=== PATIENT | female | born 1940 | race Caucasian/White ===

== ENCOUNTER 2017-12-08 09:36 | Emergency (ER) | payer MEDICARE, SELFPAY ==
[2017-12-08 09:54] VITALS: BP 132/64; PULSE 100; RESP 20; TEMP 36.6; O2SAT 93; BMI 35.5
--- NOTE | 2017-12-08 09:54 | HMH.EDUTC ---
[facility] [place] Disposition Clinical Impression: Influenza Disposition: Home, Self-Care Condition on Discharge: Good Instructions: Influenza, Influenza (Alternative Therapy) Additional Instructions: ? Start Tamiflu today if you are going to take it. Discussed risk and possible benefits. ? ? Lots of rest ? Increase Fluids water, Gatorade, powerade, pedialyte,if infant/toddler/child ? Alternate Tylenol and / or ibuprofen as discussed for fever, aches, chills x 24 hours without medication for symptoms ? Follow up IMMEDIATELY for new or worsening Symptoms OR no noticeable improvement over the next 48-72 hours, 911 for difficulty or breathing ? You or your child area contagious until no fever, aches, chills for 24 hours with medication for symptoms Prescriptions: Dextromethorphan Polistirex [Delsym] 10 ml PO Q12H PRN #200 frankie.er.12h PRN Reason: Cough Fluticasone Propionate [Flonase 50mcg nasal spray 16gm] 2 spr NS DAILY #1 bottle Oseltamivir Phosphate [Tamiflu 75mg Capsule] 75 mg PO BID #10 capsule Referrals: Provider,Referral, MD [Primary Care Provider] - Time of Disposition: 10:17 Medical Decision Making Vital Signs: 12/08/17 09:54 Temperature 97.8 F Temperature Source Temporal Artery Scan Pulse Rate [Left] 100 H Respiratory Rate 20 Blood Pressure [Left Arm] 132/64 Blood Pressure Mean [Left Arm] 86 Blood Pressure Source [Left Arm] Automatic Cuff Blood Pressure Position [Left Arm] Sitting 02 Sat by Pulse Oximetry 93 L Oxygen Delivery Method Room Air - Lab Data Lab Results 12/08/17 10:12: Influenza Type A Ag Positive A, Influenza Type B Ag Negative - Yehuda Inquiry Pt receiving controlled substance: No Yehuda was queried for this patient: No - Reevaluation(s) Time: 10:13 (Patient Flu A + patient educated on taking over the counter Motrin and Tylneol as needed for fever and rest ) [facility] [place] HPI - General Stated complaint: congestion cough HEENT Symptoms (Recalled from RN notes): Yes Resp Symptoms (Recalled from RN notes): Yes Other (Recalled from RN notes): Yes - History of Present Illness Provider Complaint: Patient state that she began to feel bad on Thursday then yesterday she was worse and laid around on the couch all day States that this morning she woke up and was feeling worse, state that she has had coughing, congestion, stuffy nose and chills State that all of her grandchildren have had the flu and worried that she may have it too - Related Data Home Medications Medication Instructions Recorded Confirmed Losartan/Hydrochlorothiazide 1 each PO DAILY 12/08/17 12/08/17 [Losartan-Hctz 50-12.5 mg Tab] Montelukast Sodium [Montelukast 10 mg PO DAILY 12/08/17 12/08/17 10mg Tab] Previous Rx's Medication Instructions Recorded Dextromethorphan Polistirex 10 ml PO Q12H PRN #200 frankie.er.12h 12/08/17 [Delsym] Fluticasone Propionate [Flonase 2 spr NS DAILY #1 bottle 12/08/17 50mcg nasal spray 16gm] Oseltamivir Phosphate [Tamiflu 75 mg PO BID #10 capsule 12/08/17 75mg Capsule] Allergies Allergy/AdvReac Type Severity Reaction Status Date / Time Penicillins Allergy Unknown I-RASH Verified 12/08/17 09:58 [facility] History I have reviewed the patient's past medical history: Yes ROS Obtained: Yes All systems reviewed & no additional complaints Physical Exam - General General appearance: alert, in no apparent distress - Expanded ENT Exam Nose exam: Present: sinus tenderness Throat exam: Present: other Comment: Throat red, irritated Drainage noted - Respiratory Respiratory exam: Present: normal lung sounds bilaterally. Absent: respiratory distress - Cardiovascular Cardiovascular exam: Present: regular rate, normal rhythm. Absent: JVD - Neurological Exam Neurological exam: Present: alert, oriented X3
--- NOTE | 2017-12-08 09:59 | ED_ITS ---
[facility] [place] Clinical Impression: Influenza Disposition: Home, Self-Care Condition on Discharge: Good Instructions: Influenza, Influenza (Alternative Therapy) Additional Instructions: ? Start Tamiflu today if you are going to take it. Discussed risk and possible benefits. ? ? Lots of rest ? Increase Fluids water, Gatorade, powerade, pedialyte,if infant/toddler/child ? Alternate Tylenol and / or ibuprofen as discussed for fever, aches, chills x 24 hours without medication for symptoms ? Follow up IMMEDIATELY for new or worsening Symptoms OR no noticeable improvement over the next 48-72 hours, 911 for difficulty or breathing ? You or your child area contagious until no fever, aches, chills for 24 hours with medication for symptoms Prescriptions: Dextromethorphan Polistirex [Delsym] 10 ml PO Q12H PRN #200 frankie.er.12h PRN Reason: Cough Fluticasone Propionate [Flonase 50mcg nasal spray 16gm] 2 spr NS DAILY #1 bottle Oseltamivir Phosphate [Tamiflu 75mg Capsule] 75 mg PO BID #10 capsule Referrals: Provider,Referral, MD [Primary Care Provider] - Time of Disposition: 10:17 Medical Decision Making Vital Signs: 12/08/17 09:54 Temperature 97.8 F Temperature Source Temporal Artery Scan Pulse Rate [Left] 100 H Respiratory Rate 20 Blood Pressure [Left Arm] 132/64 Blood Pressure Mean [Left Arm] 86 Blood Pressure Source [Left Arm] Automatic Cuff Blood Pressure Position [Left Arm] Sitting 02 Sat by Pulse Oximetry 93 L Oxygen Delivery Method Room Air - Lab Data Lab Results 12/08/17 10:12: Influenza Type A Ag Positive A, Influenza Type B Ag Negative - Yehuda Inquiry Pt receiving controlled substance: No Yehuda was queried for this patient: No - Reevaluation(s) Time: 10:13 (Patient Flu A + patient educated on taking over the counter Motrin and Tylneol as needed for fever and rest ) [facility] [place] - General Stated complaint: congestion cough HEENT Symptoms (Recalled from RN notes): Yes Resp Symptoms (Recalled from RN notes): Yes Other (Recalled from RN notes): Yes - History of Present Illness Provider Complaint: Patient state that she began to feel bad on Thursday then yesterday she was worse and laid around on the couch all day States that this morning she woke up and was feeling worse, state that she has had coughing, congestion, stuffy nose and chills State that all of her grandchildren have had the flu and worried that she may have it too - Related Data Home Medications Medication Instructions Recorded Confirmed Losartan/Hydrochlorothiazide 1 each PO DAILY 12/08/17 12/08/17 [Losartan-Hctz 50-12.5 mg Tab] Montelukast Sodium [Montelukast 10 mg PO DAILY 12/08/17 12/08/17 10mg Tab] Previous Rx's Medication Instructions Recorded Dextromethorphan Polistirex 10 ml PO Q12H PRN #200 frankie.er.12h 12/08/17 [Delsym] Fluticasone Propionate [Flonase 2 spr NS DAILY #1 bottle 12/08/17 50mcg nasal spray 16gm] Oseltamivir Phosphate [Tamiflu 75 mg PO BID #10 capsule 12/08/17 75mg Capsule] Allergies Allergy/AdvReac Type Severity Reaction Status Date / Time Penicillins Allergy Unknown I-RASH Verified 12/08/17 09:58 [facility] History I have reviewed the patient's past medical history: Yes ROS Obtained: Yes All systems reviewed & no additional complaints
[2017-12-08 10:12] LABS: UTC Influenza A Antigen Positive (Negative); UTC Influenza B Antigen Negative (Negative)
== END 2017-12-08 10:26 | disposition home or self-care (01) ==
PROVIDERS: Emergency Provider Nurse Practitioner; Family Provider Nurse Practitioner Family
DX: J11.1 Influenza due to unidentified influenza virus with other respiratory manifestations (principal)
CPT/HCPCS: 87804; 99202

== ENCOUNTER → 2017-12-22 16:45 | Outpatient (REF) | payer MEDICARE, SELFPAY | LOC: LAB 16:45 | PROVIDERS: Visit Provider Podiatrist | DX: B35.1 Tinea unguium (principal) | CPT/HCPCS: 87220 ==

== ENCOUNTER → 2018-05-17 13:03 | Outpatient (POV) | payer MEDICARE, SELFPAY | PROVIDERS: Visit Provider Physician Assistant | DX: Z00.00 Encounter for general adult medical examination without abnormal findings (principal) ==

== ENCOUNTER → 2018-10-18 12:06 | Outpatient (CLI) | payer MEDICARE, SELFPAY ==
--- NOTE | 2018-10-18 12:08 | XR_ITS ---
XR chest 2V HISTORY: ITS.REASON: cough ORDERING PHYSICIAN: Ade Christianson PATIENT AGE: 77 years Technique: PA and lateral chest. COMPARISON: PA lateral chest. 06/12/2016 FINDINGS: Lungs are well expanded and clear with nothing definitely acute The heart is enlarged slightly more so than on previous chest film May 2016. Consider a echocardiogram. But there is normal pulmonary vascularity. The syed and mediastinal structures satisfactory. Mild hyperexpansion with slight flattening of the diaphragm. A Tai minor device is seen projected over the posterior aspect of the mid thoracic spinal canal. This was present in 2016 as well. Chest wall unremarkable The cardiomediastinal silhouette IMPRESSION: Lungs hyperexpanded but clear. Nothing definite acute Cardiomegaly-slightly more pronounced than previous 2016 study Neurostimulator device mid T-spine
== END ==
PROVIDERS: PCP Emergency Medicine; Visit Provider Nurse Practitioner Family
DX: R05 Cough (principal)
CPT/HCPCS: 71046

== ENCOUNTER → 2018-11-09 06:50 | Outpatient (CLI) | payer MEDICARE, SELFPAY ==
--- NOTE | 2018-11-09 06:51 | CA_ITS ---
PROCEDURE: 2-D M-mode and color Doppler study INDICATIONS FOR THE TEST: Chest pain X COPD Heart Murmur Tobacco Smoking Palpitations Fatigue Syncope Edema HypertensionXDiabetes Mellitus Rheumatic Fever SOB DOEXObesity HyperlipidemiaX Family History HD Additional History CARDIOMEGALY,MOD PERICARDIAL EFFUSION NOTED PATIENT INFORMATION HEIGHT: 64 WEIGHT:172 GENDER: Female B/P:142/68 2-D/M-MODE INTERPRETATION: 2-D MEASUREMENTS OBSERVED VALUES IN CMS Right Ventricular Dimension (RVDd) 2.2 Interventricular Septum (Thickness)(IVsd) .9 Left Ventricular Internal Dimensions(LVIDd) 4.9 Left Ventricular Posterior Wall (Thickness)(LVPWd) .9 Aortic Root 3.1 Aortic Cusp Separation 1.9 Left Atrial Dimensions (LAD) 4.3 2D 1. Left atrium is mildly enlarged, left ventricle is normal size, mild concentric left ventricular hypertrophy, visually estimated ejection fraction 55% no wall motion abnormality. 2. The right atrium and right ventricle are normal size and contractility. 3. The aortic valve is thickened and calcified leaflet continue to display good mobility. 4. The mitral and tricuspid valve are normal. 5. The pulmonic valve is poorly visualized. 6. There is moderate size pericardial effusion noted. DOPPLER INTERROGATION: Doppler interrogation of the aortic, mitral and tricuspid valvular presence of mild mitral and tricuspid regurgitation, there is no obvious Doppler evidence of raised intrapericardial pressure, grade 1 diastolic dysfunction seen with tissue Doppler evidence of raised left atrial pressure. CONCLUSION: 1. Mildly enlarged left atrium, normal left ventricular size, mild concentric left ventricular hypertrophy, visually estimated ejection fraction 55% with no regional wall motion abnormality, grade 1 diastolic dysfunction seen with tissue Doppler evidence of raised left atrial pressure. 2. Mild mitral and tricuspid regurgitation 3. Moderate-sized pericardial effusion noted without obvious Doppler evidence of raised intrapericardial pressure.
== END ==
PROVIDERS: PCP Emergency Medicine; Visit Provider Internal Medicine
DX: I51.7 Cardiomegaly (principal); R06.00 Dyspnea, unspecified; R07.9 Chest pain, unspecified; R93.89 Abnormal findings on diagnostic imaging of other specified body structures; R94.31 Abnormal electrocardiogram [ECG] [EKG]
CPT/HCPCS: 93306

== ENCOUNTER → 2018-11-12 07:47 | Outpatient (CLI) | payer MEDICARE, SELFPAY ==
--- NOTE | 2018-11-12 07:50 | NM_ITS ---
History and Indications: Hyperlipidemia, family history, fatigue Procedure: Patient received a 0.4 mg of intravenous Lexiscan, resting heart rate was 60 bpm resting blood pressure 134/75, with Lexiscan maximum heart rate achieved was 94 bpm which is less than 85% of the maximum predicted heart rate and a blood pressure was 140/72. With Lexiscan patient with shortness of breath and stomach discomfort Electrocardiogram: Resting electrocardiogram showed the sinus rhythm abnormal gauge QRS complexes, with Lexiscan there is less than 1.[address] segment depression noted from the baseline EKG. Cardiac stress and resting SPECT images: Cardiac stress and rest SPECT images were obtained using technetium 99 Myoview 32.8 mCi stress and 9.6 mCi at rest. Gated SPECT further analysis of segmental wall motion and calculation of ejection fraction. Cardiac stress and resting SPECT images show uniform myocardial activity without segmental perfusion abnormality, computer derived ejection fraction is over 65% with no regional wall motion abnormality. Right ventricle is normal size and contractility. Conclusion: 1. The EKG portion of the Lexiscan Myoview is nondiagnostic. 2. No scintigraphic evidence of reversible ischemia seen, computer derived ejection fraction is over 65% with no regional wall motion abnormality, right ventricle is normal size and contractility. 3. Normal Lexiscan Myoview study.
== END ==
PROVIDERS: PCP Emergency Medicine; Visit Provider Internal Medicine
DX: I25.10 Atherosclerotic heart disease of native coronary artery without angina pectoris; I51.7 Cardiomegaly; E78.5 Hyperlipidemia, unspecified; R06.00 Dyspnea, unspecified; R07.9 Chest pain, unspecified; R93.89 Abnormal findings on diagnostic imaging of other specified body structures; R94.31 Abnormal electrocardiogram [ECG] [EKG]
CPT/HCPCS: 78452; 93017; A9502; J2785

== ENCOUNTER → 2019-01-26 17:34 | Outpatient (CLI) | payer MEDICARE, SELFPAY | PROVIDERS: Visit Provider Nurse Practitioner Family | DX: R35.0 Frequency of micturition (principal) | CPT/HCPCS: 87086; 87088; 87186 ==

== ENCOUNTER → 2019-10-14 13:46 | Outpatient (CLI) | payer MEDICARE, SELFPAY | PROVIDERS: Visit Provider Nurse Practitioner Family | DX: N39.0 Urinary tract infection, site not specified (principal) | CPT/HCPCS: 87086 ==

== ENCOUNTER 2020-06-14 12:56 | Emergency (ER) | payer MEDICARE, SELFPAY ==
[2020-06-14 13:19] VITALS: BP 141/70; PULSE 80; RESP 20; TEMP 36.6; O2SAT 94; BMI 30.4
--- NOTE | 2020-06-14 13:19 | XR_ITS ---
PROCEDURE: XR CHEST 2V CLINICAL INDICATION: chest congestion COMPARISON: CXR CHEST(2 VIEWS-NOT PORTABLE) from 07/12/2015 CXR CHEST(2 VIEWS-NOT PORTABLE) from 06/12/2016 CXR2V XR chest 2V from 10/18/2018 FINDINGS: Borderline cardiomegaly otherwise negative. Mild fibrotic changes are present in the left lung base. The remaining lungs are clear. Other findings:Epidural stimulator device is present in the midthoracic spine region. No acute bony findings. IMPRESSION: Mild cardiomegaly with minimal left basilar fibrosis. No change with no acute finding Dictated by: Larry Newton MD 06/14/2020 14:04 Electronically signed by Larry Newton MD in [place] 06/14/2020 14:04
--- NOTE | 2020-06-14 13:34 | HMH.EDUTC ---
[facility] [place] Disposition Clinical Impression: Sinusitis Qualifiers: Sinusitis location: unspecified location Chronicity: unspecified Qualified Code(s): J32.9 - Chronic sinusitis, unspecified Disposition: Home, Self-Care Condition on Discharge: Good Instructions: Sinusitis, Sinus Headache, DI for Sinusitis Additional Instructions: *Monitor Temp, Over the counter Motrin or Tylenol as directed/as needed Tylenol every 4 hours and Motrin every 6 hours (as long as your family doctor has told you that you can take it) for fever or pain. and straight to ER if unable to lower temp less than 101.0 after medication given *Warm salt water gargles may help to soothe the throat *Throat Lozenges *Warm fluids like tea with honey may help to soothe the throat *Sleep elevated *Humidifier/Vaporizer *Make sure to follow up with Cardiology as scheduled Return if needed Straight to ER if any shortness of breath, chest pain or any life threatening symptoms Follow up IMMEDIATELY for new or worsening symptoms or no Noticeable improvement over the next 48-72 hours. 911 for difficulty breathing or swallowing Prescriptions: Doxycycline Monohydrate [Doxycycline [place] 100mg Tab] 100 mg PO Q12 7 Days #14 tab Transmission Status: Received by [facility] Referrals: Wally Cherry MD [Primary Care Provider] - As needed Jalen Clement PA [Physician Calender Worker Helper] - 06/19/20 3:30 pm (Call for follow up as discussed) Time of Disposition: 14:26 Medical Decision Making - Yehuda Inquiry Pt receiving controlled substance: No Yehuda was queried for this patient: No Vital Signs: 06/14/20 13:19 06/14/20 14:30 Temperature 97.8 F 97.8 F Temperature Source Oral Pulse Rate 80 Pulse Rate [Right Brachial] 80 Respiratory Rate 20 20 Blood Pressure 141/70 H Blood Pressure [Right Arm] 141/70 H Blood Pressure Mean [Right Arm] 93 Blood Pressure Source [Right Arm] Automatic Cuff Blood Pressure Position [Right Arm] Sitting 02 Sat by Pulse Oximetry 94 L Oxygen Delivery Method Room Air - Radiology Data #1 Image(s): Chest Image Reviewed: Yes I have reviewed radiologist's interpretation IMPRESSION: Mild cardiomegaly with minimal left basilar fibrosis. No change with no acute finding - Physician Consults Physician Consulted: Cardiology Time: 14:15 Reason -: Cardiology Eval/Care Comment/Response: Spoke with Cardiology Clinic and patient was given appointment for 06/19/20 at 1530 for follow up and further evaluation and examination Patient still denies CP [facility] [place] HPI - General Stated complaint: chest cecile Time Seen by Provider: 06/14/20 13:34 Mode of Arrival: Ambulatory Source of Information: Patient Limitations: No Limitations Description of Symptoms (Recalled from Triage Doc. by RN): PATIENT C/O CHEST CONGESTION AND SINUS PRESSURE X 3 DAYS HEENT Symptoms (Recalled from RN notes): Yes Resp Symptoms (Recalled from RN notes): Yes Skin Symptoms (Recalled from RN notes): No MS Symptoms (Recalled from RN notes): No Functional Status (Recalled from RN notes): WNL - History of Present Illness Provider Complaint: Patient states that she has been having chest congestion and sinus pressure for several days States that she hasnt been coughing anything up States that she gets bronchitis about every year and feels like it did when she had it before Denies chest pain States that it feels like at times she has something draining in her throat and she is unable to get it up States that she has inhaler at home and has been using it and it helps - Related Data Home Medications Medication Instructions Recorded Confirmed Montelukast Sodium [Montelukast 10 mg PO DAILY 12/08/17 06/14/20 10mg Tab] Losartan/Hydrochlorothiazide See Rx Instructions .ROUTE .COMPLEX 06/14/20 06/14/20 [Losartan-Hctz 50-12.5 mg Tab] Simvastatin 20 mg PO QAM 06/14/20 06/14/20 Previous Rx's Medication Instructions Recorded Doxycycline Monohydrate 100 mg PO
[2020-06-14 14:30] VITALS: BP 141/70; PULSE 80; RESP 20; TEMP 36.6; O2SAT 94
== END 2020-06-14 14:32 | disposition home or self-care (01) ==
PROVIDERS: Emergency Provider Nurse Practitioner; PCP Emergency Medicine
DX: J32.9 Chronic sinusitis, unspecified (principal); E78.5 Hyperlipidemia, unspecified; I10 Essential (primary) hypertension; E03.9 Hypothyroidism, unspecified; M81.0 Age-related osteoporosis without current pathological fracture; Z79.899 Other long term (current) drug therapy
CPT/HCPCS: 71046; 99201

== ENCOUNTER → 2020-06-26 08:14 | Outpatient (CLI) | payer MEDICARE, SELFPAY ==
--- NOTE | 2020-06-26 08:14 | US_ITS ---
PROCEDURE: US ABDOMEN COMPLETE CLINICAL INDICATION: bloating Bloating and abdominal pain COMPARISON: No exams were available for comparison FINDINGS: PANCREAS: Unremarkable. No obvious mass or abnormal fluid collection. No ductal dilatation LIVER: No focal liver lesions demonstrated. Homogeneous echogenicity. No intrahepatic biliary ductal dilatation evident. There is appropriate direction of blood flow within a non dilated portal vein RIGHT KIDNEY: 2 cm cyst upper pole right kidney. No right hydronephrosis LEFT KIDNEY: Unremarkable. Normal size and echogenicity. No hydronephrosis GALLBLADDER: Prior cholecystectomy. Common bile duct normal at 5 mm AORTA: No evidence of aneurysmal dilatation. SPLEEN: Unremarkable. Normal size and echogenicity ASCITES: None demonstrated. IMPRESSION: Prior cholecystectomy. Small right renal cyst Otherwise negative abdominal ultrasound Dictated by: Larry Newton MD 06/27/2020 10:17 Electronically signed by Larry Newton MD in [place] 06/27/2020 10:17
== END ==
PROVIDERS: PCP Emergency Medicine; Visit Provider Nurse Practitioner Family
DX: E78.5 Hyperlipidemia, unspecified (principal); I10 Essential (primary) hypertension; I31.3 Pericardial effusion (noninflammatory); I51.7 Cardiomegaly; R01.1 Cardiac murmur, unspecified; R06.00 Dyspnea, unspecified; R07.9 Chest pain, unspecified; R14.0 Abdominal distension (gaseous); R93.89 Abnormal findings on diagnostic imaging of other specified body structures
CPT/HCPCS: 76700

== ENCOUNTER → 2020-06-27 06:43 | Outpatient (CLI) | payer MEDICARE, SELFPAY ==
--- NOTE | 2020-06-27 06:44 | CA_ITS ---
APPROVED REPORT EXAM: Comprehensive 2D, Doppler, and color-flow Echocardiogram V Belt Inspector: Emily Hickman CRT Ht: 5 ft 4 in Wt: 178lbs BSA: 1.86 BP: 166/61 mmHg Indications: Shortness of Breath, Pericardial Effusion, Hyperlipidemia, Hypertension/HDD 2D Dimensions LVOT 1.52 cm (M/F) 1.5-2.5 M-Mode Dimensions RVDd 1.98 cm (0.9-2.6) LVDd 4.25 cm (3.5-5.7) LVDs 2.48 cm (3.5-5.7) IVSd 1.14 cm (0.6-1.1) PWd 0.94 cm (0.6-1.1) EF (Teich) 72.90% FS 41.60% EDV (Teich) 80.80 mL ESV (Teich) 21.90 mL LV Diastology E/A Ratio 0.98 Mitral Valve MV A Velocity 90.00 (40-130 cm/s) Left Ventricle Left atrium is mildly enlarged, left ventricle is normal size, mild concentric left ventricular hypertrophy, visually estimated ejection fraction 55% with no regional wall motion abnormality, grade 1 diastolic dysfunction seen without tissue Doppler evidence of raise left atrial pressure. Right Ventricle Right atrium and right ventricular normal size and contractility. Aortic Valve Aortic valve is minimally thickened and fibrosed, there is no aortic stenosis or aortic insufficiency. Mitral Valve Mitral valve leaflets are minimally thickened, there is mild mitral regurgitation. Tricuspid Valve Tricuspid valve is grossly normal, there is mild tricuspid regurgitation. Tricuspid regurgitation jet velocity is inadequate for calculation of the right ventricular systolic pressure. Pulmonic Valve Pulmonic valve is poorly visualized. Great Vessels Root is normal size. Pericardium Small to moderate-sized circumferential pericardial effusion noted, without Doppler evidence of tamponade physiology or raised intrapericardial pressure. Inferior vena cava is normal size with normal inspiratory collapse. Conclusion 1. Mildly enlarged left atrium, normal left ventricular size, mild concentric left ventricular hypertrophy, visually estimated ejection fraction 55% with no regional wall motion abnormality, grade 1 diastolic dysfunction seen without tissue Doppler evidence of raise left atrial pressure. 2. Mild mitral and tricuspid regurgitation. 3. Small to moderate-sized circumferential pericardial effusion without Doppler evidence of raised intrapericardial pressure or tamponade physiology. Inferior vena cava is normal size with normal inspiratory collapse. Electronically signed by : Eric Manuel, 06/28/2020 16:14:50
--- NOTE | 2020-06-27 06:49 | CA_ITS ---
APPROVED REPORT Exam: Pharmacologic Technologist: Faith Davidson Ht: 5 ft 4 in Wt: 170 lbs BSA: 1.83 m2 HR: 59 bpm BP: 145/61 mmHg Indications: Chest pain Medical History Medications: Simvastatin,,,,, Estradiol,,,,, Losartan HCTZ,,,,, DOxycycline,,,,, Mirabegron,,,,, Stress Test Details Test: LEXISCAN HR Resting HR: 60 bpm Max Heart Rate (APMHR): 139 bpm Max HR Achieved: 97 bpm Target HR (85% APMHR): 118 bpm % of APMHR: 69 Recovery HR: 62 bpm BP Resting BP: 145.0/61.0 mmHg Max BP: 179.0/64.0 mmHg Recovery BP: 141.0/53.0 mmHg ECG Clinical Exercise duration: 04:00 min Highest Stage Achieved: Exercise capacity: 1.0 METs Stress ECG Conclusion Resting ECG: Normal sinus rhythm, low voltage QRS. Symptoms: Malaise, headache. No chest pain. Arrhythmias/Ectopy: None ST-T Changes: No significant changes. Conclusion: Unremarkable Lexiscan stress. Myoview images reported separately. Electronically signed by : Eric Manuel, 06/28/2020 13:31:36
--- NOTE | 2020-06-27 06:49 | NM_ITS ---
APPROVED REPORT Exam: Nuclear Stress Test Indication: Chest pain, Fatigue, HTN, CAD, High cholesterol, Family history Patient Location: Outpatient Stress Tech: Faith Davidson NM Tech:Camryn Hawkins, ARRT, RT (R)(N) Ht: 5 ft 4 in Wt: 170 lbs Bra Size: 42C HR: 59 bpm BP: 145/61 mmHg BSA: 1.83 m2 BMI: 29.1 History: Chest pain, Fatigue, HTN, CAD, High cholesterol, Family history Procedure: Patient received a 0.4 mg of intravenous Lexiscan, resting heart rate 59 bpm, resting blood pressure 145/61 mmHg, with Lexiscan maximum heart rate achived was 78 bpm which is Less than 85 % of the maximum predicted heart rate and blood pressure was 166/69 mmHg. With Lexiscan, patient denied any complaint of chest pain. Electrocardiogram Resting electrocardiogram showed sinus rhythm low voltage QRS complexes, with Lexiscan there is less than 1.[address] segment depression noted from the baseline EKG. The EKG portion of the Lexiscan Myoview is nondiagnostic. Cardiac Stress and Resting SPECT Images: Cardiac Stress and Resting SPECT images were obtained using technetium 99m Myoview 30.7 mCi stress and 10.68 mCi at rest. Gated SPECT for the analysis of segmental wall motion and calculation of the ejection fraction also done. Cardiac stress and resting SPECT images show mild fixed defect in the anterior wall with normal pinky gated SPECT is likely secondary to soft tissue attenuation, no reversible ischemia seen. Computer derived ejection fraction is over 65% with no regional wall motion abnormality, right ventricle is normal size and contractility. Conclusion: 1. The EKG portion of the Lexiscan Myoview is nondiagnostic. 2. No scintigraphic evidence of reversible ischemia seen, computer derived ejection fraction is over 65% with no regional wall motion abnormality, right ventricle is normal size and contractility. 3. Likely normal Lexiscan Myoview study. Electronically signed by : Eric Manuel, 06/28/2020 13:35:14
--- NOTE | 2020-06-27 07:10 | HMH.ITSHM ---
Current Home Medications as stated by this patient Cristel Blackwood or motor vehicle representative. []LOSARTAN MONTELUKAST SIMVASTATIN
== END ==
PROVIDERS: PCP Emergency Medicine; Visit Provider Nurse Practitioner Family
DX: E78.5 Hyperlipidemia, unspecified (principal); I10 Essential (primary) hypertension; I31.3 Pericardial effusion (noninflammatory); I51.7 Cardiomegaly; R01.1 Cardiac murmur, unspecified; R06.00 Dyspnea, unspecified; R07.9 Chest pain, unspecified; R14.0 Abdominal distension (gaseous); R93.89 Abnormal findings on diagnostic imaging of other specified body structures
CPT/HCPCS: 78452; 93017; 93306; A9502; J2785

== ENCOUNTER → 2020-07-03 13:58 | Outpatient (CLI) | payer MEDICARE, SELFPAY ==
--- NOTE | 2020-07-03 13:59 | CA_ITS ---
APPROVED REPORT EXAM: Comprehensive 2D, Doppler, and color-flow Echocardiogram Photographer'S Assistant: Leonela Ding RT(R) Ht: 5 ft 4 in Wt: 178lbs BSA: 1.86 BP: 125/68 mmHg Indications: increased SOB, recent echo 06/27/20 with small pericardial effusion. Ordered a limited echo to check effusion today. M-Mode Dimensions RVDd 1.58 cm (0.9-2.6) LVDd 3.59 cm (3.5-5.7) LVDs 2.45 cm (3.5-5.7) IVSd 0.74 cm (0.6-1.1) PWd 0.77 cm (0.6-1.1) EF (Teich) 60.80% FS 31.80% EDV (Teich) 54.10 mL ESV (Teich) 21.20 mL Left Ventricle Left atrium is mildly enlarged, left ventricle is normal size, mild concentric left ventricular hypertrophy, visually estimated ejection fraction 55% with no regional wall motion abnormality, Doppler evidence of impaired LV relaxation. Right Ventricle Right atrium and right ventricular normal size and contractility. Aortic Valve Aortic valve is minimally thickened and fibrosed. There is no aortic stenosis aortic insufficiency. Mitral Valve Mitral valve leaflets are minimally thickened, there is mild mitral regurgitation. Tricuspid Valve Tricuspid valve is grossly normal, there is mild tricuspid regurgitation. Pulmonic Valve Pulmonic valve is poorly visualized. Great Vessels Aortic root is normal size. Pericardium There is moderate-sized circumferential pericardial effusion noted, there is no obvious right ventricular diastolic collapse or Doppler evidence of raised intrapericardial pressure. Conclusion 1. Normal left ventricular size, preserved left ventricular systolic function, visually estimated ejection fraction 55% with no regional wall motion abnormality, Doppler evidence of impaired LV relaxation seen. 2. Moderate-sized circumferential pericardial effusion, there is no obvious right ventricular diastolic collapse or Doppler evidence of tamponade physiology. 3. If clinically indicated a repeat echocardiogram is recommended to follow-up on pericardial effusion Electronically signed by : Eric Manuel, 07/03/2020 17:06:52
== END ==
PROVIDERS: PCP Emergency Medicine; Visit Provider Nurse Practitioner Family
DX: E78.5 Hyperlipidemia, unspecified (principal); I10 Essential (primary) hypertension; I25.10 Atherosclerotic heart disease of native coronary artery without angina pectoris; I31.3 Pericardial effusion (noninflammatory); R06.00 Dyspnea, unspecified; R07.9 Chest pain, unspecified
CPT/HCPCS: 93308

== ENCOUNTER → 2020-07-12 15:16 | Outpatient (CLI) | payer MEDICARE, SELFPAY ==
[2020-07-12 15:57] LABS: Basophils # 0.1 K/mm3 (0-0.2); Basophils % 0.7 % (0.1-2.0); Eosinophils # 0.1 K/mm3 (0.0-0.4); Eosinophils % 0.7 % (0.1-12.0); Hematocrit 43.9 % (37.0-47.0); Lymphocytes # 1.3 K/mm3 (0.7-4.5); Lymphocytes % 18.8 % (10-50); Mean Corpuscular HGB Conc 34.1 g/dL (31.8-35.4); Mean Corpuscular Hemoglobin 33.3 pg (27.0-31.2); Mean Corpuscular Volume 97.8 fl (81-99); Mean Platelet Volume 7.9 fl (7.4-10.4); Monocytes # 0.3 K/mm3 (0.1-1.0); Monocytes % 4.7 % (1.7-9.3); Neutrophils # 5.3 K/mm3 (1.8-7.8); Neutrophils % 75.1 % (37.0-80.0); Platelet Count 318 K/mm3 (142-424); Red Blood Count 4.49 M/mm3 (4.20-5.40); Red Cell Distribution Width 13.8 % (11.5-17.5); White Blood Count 7.1 K/mm3 (4.8-10.8)
[2020-07-12 16:26] LABS: Alanine Aminotransferase 13 U/L (12-78); Alkaline Phosphatase 85 U/L (38-126); Aspartate Amino Transferase 26 U/L (14-36); Bilirubin,Direct 0.2 mg/dl (0.0-0.4); Bilirubin,Indirect 0.7 mg/dL (0.0-0.9); Bilirubin,Total 0.9 mg/dl (0.2-1.3); Bilirubin,Unconjugated 0.6 mg/dL (0.0-1.1); Blood Urea Nitrogen 18 mg/dl (7-17); Calcium 10.1 mg/dl (8.4-10.2); Carbon Dioxide 33 mmol/L (22.0-30.0); Chloride 99 mmol/L (98-107); Chol/HDL Ratio 4.6 (1-3.5); Cholesterol 306 mg/dl (140-200); Estimated Glomerular Filt Rate 60 ml/min (>60); GFR (African American) 73 ML/MIN (>60); Glucose 98 mg/dl (74-100); HDL Cholesterol 67 mg/dl (40-60); Sodium 139 mmol/L (136-145); Triglycerides 312 mg/dl (30-150); VLDL Cholesterol 62 mg/dL (0-40)
[2020-07-12 16:36] LABS: Direct LDL Cholesterol 140.37 mg/dL (100-129)
[2020-07-12 16:41] LABS: Free T4 (Free Thyroxine) 0.97 ng/dl (0.78-2.19)
[2020-07-12 16:56] LABS: Thyroid Stimulating Hormone 1.82 uIU/mL (0.465-4.68)
[2020-07-12 17:12] LABS: Anion Gap 10.6 mEq/L (5-15); Potassium 3.6 mmoL/L (3.5-5.1)
== END ==
PROVIDERS: Visit Provider Nurse Practitioner Family
DX: I25.118 Atherosclerotic heart disease of native coronary artery with other forms of angina pectoris (principal); R06.02 Shortness of breath; E78.2 Mixed hyperlipidemia
CPT/HCPCS: 36415; 80048; 80061; 80076; 84439; 84443; 85025

== ENCOUNTER → 2020-07-13 08:23 | Outpatient (CLI) | payer MEDICARE, SELFPAY ==
--- NOTE | 2020-07-13 08:23 | MM_ITS ---
PROCEDURE: MM DIG SCREENING MAMM BI W/CAD Digital Breast Tomosynthesis Included CLINICAL INDICATION: screening mammogram There is no personal or family history of breast cancer COMPARISON: [facility] CADSC CAD MAMMOGRAPHY SCREENING from 10/04/2003 [facility] DMSB DIGITAL MAMM-SCREEN BILATERAL from 03/06/2011 TECHNIQUE: Standard CC and MLO images and 3D Tomosynthesis was obtained. R2 CAD reviewed. FINDINGS: Scattered fibroglandular densities are seen in each breast on a background of fatty type breast parenchyma. There is faint arterial calcification in each breast. There are few benign-appearing microcalcifications right breast. There is a tiny benign-appearing oval nodular density inner quadrant right breast. There is no suspicious lesion and no suspicious microcalcifications. IMPRESSION: Fibrofatty parenchyma with no suspicious lesions seen BI-RAD Category: 2 Benign Finding(s) FOLLOW-UP: 1YR 1 Year Follow-up (A letter has been sent to the patient regarding results of the study.) Dictated by: Dr. Filipe Horner MD 07/13/2020 10:39 Dr. Filipe Horner MD in [place] 07/13/2020 10:39
--- NOTE | 2020-07-13 08:23 | CT_ITS ---
PROCEDURE: CT CHEST WO/W CON CLINCAL INDICATION: cp, sob, pericardial effusion COMPARISON: CT ABDPELW/O CT ABD PELVIS W/O CONTRAST from 07/24/2016 CT ABDPELW/O CT ABD PELVIS W/O CONTRAST from 05/06/2017 TECHNIQUE: IV Contrast: 75ml Optiray 350 Axial images obtained with sagittal and coronal reformats. All CT scans at the facility use one or more dose reduction, viz: automated exposure control, ma/kV adjustment per patient size (including targeted exams where dose is matched to indication, i.e. head), or iterative reconstruction technique. FINDINGS: HEART AND MEDIASTINAL STRUCTURES: Mediastinal or hilar mass or adenopathy. No evidence of aortic aneurysm dissection or pulmonary embolus. LUNGS AND PLEURAL SPACES: There is some mild fibrotic changes in the lung bases. No suspicious nodule is evident. Mild atelectatic or fibrotic changes noted in the left lower lobe. Calcified granuloma is present in the left lung base. No acute bony findings. BONY STRUCTURES: No acute bony abnormalities apparent. UPPER ABDOMEN: Right renal cyst at 2 cm ADDITIONAL FINDINGS: There is a medium sized pericardial effusion. This measures up to 2 cm in thickness.. Unenhanced images also show coronary artery calcifications. IMPRESSION: 1. There is a medium sized pericardial effusion 2. Coronary artery calcification. 3. Atelectatic or fibrotic changes in the lung bases Dictated by: Larry Newton MD 07/13/2020 11:55 Larry Newton MD in [place] 07/13/2020 11:55
== END ==
PROVIDERS: PCP Emergency Medicine; Visit Provider Internal Medicine
DX: I25.118 Atherosclerotic heart disease of native coronary artery with other forms of angina pectoris (principal); I31.3 Pericardial effusion (noninflammatory); R06.02 Shortness of breath; Z12.31 Encounter for screening mammogram for malignant neoplasm of breast
CPT/HCPCS: 71270; 77063; 77067; Q9967

== ENCOUNTER → 2020-07-16 12:15 | Outpatient (CLI) | payer MEDICARE, SELFPAY ==
[2020-07-16 13:46] LABS: Coronavirus 19 IgG Antibody Negative (Negative); Coronavirus 19 IgM Antibody Negative (Negative)
== END ==
PROVIDERS: Visit Provider Internal Medicine
DX: E78.5 Hyperlipidemia, unspecified (principal); I10 Essential (primary) hypertension; I25.10 Atherosclerotic heart disease of native coronary artery without angina pectoris; I31.3 Pericardial effusion (noninflammatory); R06.00 Dyspnea, unspecified; Z03.818 Encounter for observation for suspected exposure to other biological agents ruled out
CPT/HCPCS: 36415; 86328

== ENCOUNTER → 2020-08-14 11:01 | Outpatient (POV) | payer MEDICARE, SELFPAY | PROVIDERS: Visit Provider Dermatology | DX: Z00.00 Encounter for general adult medical examination without abnormal findings (principal) ==

== ENCOUNTER → 2020-08-20 10:34 | Outpatient (CLI) | payer MEDICARE, SELFPAY ==
[2020-08-20 12:22] LABS: Coronavirus 19 IgG Antibody Negative (Negative); Coronavirus 19 IgM Antibody Negative (Negative)
== END ==
PROVIDERS: Visit Provider Surgery
DX: Z12.11 Encounter for screening for malignant neoplasm of colon; Z01.89 Encounter for other specified special examinations
CPT/HCPCS: 86328

== ENCOUNTER 2020-08-21 08:05 | Day surgery (SDC) | payer MEDICARE, SELFPAY ==
[2020-08-21 08:20] VITALS: BP 170/55; PULSE 79; RESP 18; TEMP 36.1; O2SAT 96
--- NOTE | 2020-08-21 08:51 | P.PN_ITS ---
[facility] Anesthesia Checklist - Patient Identification Patient Identification: Arm Band, Verbal (Name & ) - Structural Data Admitted From: Home Planned Operative Procedure/s: Colonoscopy Consent for Planned Operative Procedure(s) Verified: Yes Verified Documents: Surgical Consent, History and Physical - NPO Status Verified Time NPO: 00:00 - Chart Verification Results Verified: CBC, BMP - Additional verifications Anesthesia Reactions: Yes (PONV) - Airway Assessment C-Spine Mobility Assessed: Yes TMJ Mobility Assessed: Yes Dentition: Good Dentition - Neurological Assessment Level of Consciousness: Awake, Alert, Appropriate, Follows Commands Hx Seizures: No Numbness or tingling in extremities: No - Anesthesia Plan Anesthesia Risk discussed: Yes Anesthesia Plan: Verified ASA Class: III Anesthesia Type: MAC [facility] History I have reviewed the patient's past medical history: Yes Medical History: Reports:: Atherosclerotic Heart Disease, Congestive Heart Failure, Hyperlipidemia, Hypertension Denies:: Aneurysm, Anxiety, Atrial Fibrillation, Cancer, Chronic Obstructive Pulmonary Disease (COPD), Cerebrovascular Accident, Diabetes Mellitus Type 1, Diabetes Mellitus Type 2, Gastroesophageal Reflux Disease(GERD), Internal Pacemaker, MRSA, Myocardial Infarction, Osteoporosis, Seizures *Have you ever received a pneumonia vaccine?: Yes *Have you received a flu vaccine this season?: No Other Medical History: Reports: Arthritis. Denies: Hypothyroidism, Oste oporosis, Thyroid Disease Comment:: obesity Anesthesia experience/problems:: PONV Laterality Cases: Right: Arthroscopy Shoulder, Total Knee Replacement Other Surgeries: Yes: Cardiac Catheterization, Cholecystectomy, , Other. No: Pacemaker Amputation: No Fractures: No - *Social History Last grade of school completed: High school graduate Smoking Status: Never smoker Alcohol Intake: never Alcohol Intake Frequency:: other Substance Use Type: denies use *Occupational Status:: retired Housing: house Household Members: none *Travel in the last 8 weeks: None - Psychiatric History Pschychiatric History:: Denies:: Anxiety Family Hx:: Cancer, Coronary Artery Disease, Heart Attack, Hyperlipidemia, Hypertension
[2020-08-21 09:14] VITALS: O2SAT 95
[2020-08-21 10:35] VITALS: BP 142/75; PULSE 74; RESP 12; TEMP 36.4; O2SAT 97
--- NOTE | 2020-08-21 10:39 | HMH.SCOPE ---
- Procedure: Date: 08/21/20 Patient Date of :: 1940 Procedure Performed:: Total colonoscopy with numerous polypectomy Indications:: Patient is a very pleasant 79-year-old female whom I had seen in the past. She is actually referred for colonoscopy by Dr. Kinney. She is primarily in the care of Joanna Posadas. She has been extensively followed by cardiology. She had a couple of colonoscopies in [place] years ago and had multiple large polyps removed. I had performed colonoscopy on her in March 2014 at which time she had benign submucosal lipoma and a polyp. I had recommended 5-year follow-up. Her father had colon cancer. She is relatively asymptomatic regarding rectal bleeding. However, she does describe some abdominal swelling and bloating as well as some constipation. Performing Provider:: Umesh Sargent MD Referring Provider:: Odilon Posadas Sedation:: MAC sedation Procedure:: Patient was taken to endoscopy procedure room. She was positioned in a lateral decubitus position. Adequate intravenous sedation was achieved with anesthesia titration of propofol. Variable stiffness Olympus colonoscope was inserted via the anus. With some minor difficulty due to floppiness and redundancy of the sigmoid colon the colonoscope was ultimately advanced to the cecum. Ileocecal valve and appendiceal orifice were clearly identified. Colonoscope was slowly withdrawn through the colon with careful surveillance. Numerous polyps were encountered and polypectomies were performed. Please see findings for complete details. Within the rectum retroflexion was performed which revealed internal anal papillae but nonpathologic internal hemorrhoids. Colonoscope was withdrawn. Please note that procedure time was estimated 75 minutes Findings:: Cecal polyp x2, small diminutive, removed with cold cutting snare Periappendiceal polyp x2, diminutive, removed with biopsy forceps Cecal polyp #2 removed with cold cutting snare Ascending colon polyp removed with biopsy forceps Hepatic flexure polyp x2 removed with cold cutting snare Proximal transverse colon polyp removed with biopsy forceps Mid transverse colon polyp x4 removed with snare and biopsy. Larger sessile ridge polyp clip was placed after polypectomy Descending colon polyp removed with cold biopsy forceps Sigmoid polyp removed with cold cutting snare Rectosigmoid polyp removed with snare with retrieval with biopsy forceps She had a total of approximately 17 polyps removed of various sizes. These were ranging in size from diminutive to greater than a centimeter sessile ridge type polyps. Recommendations:: Pending the pathology repeat colonoscopy 1 to 2 years Complications:: None immediately apparent Estimated blood obtained (mL): 4
[2020-08-21 10:45] VITALS: BP 126/77; PULSE 68; RESP 16; O2SAT 98
[2020-08-21 10:55] VITALS: BP 139/80; PULSE 74; RESP 16; O2SAT 98
[2020-08-21 11:05] VITALS: BP 138/75; PULSE 69; RESP 16; TEMP 36.6; O2SAT 97
== END 2020-08-21 11:13 | disposition home or self-care (01) ==
LOC: OUTP 08:06
PROVIDERS: PCP Emergency Medicine; Visit Provider Surgery
PROC: 0DJD8ZZ Inspection of Lower Intestinal Tract, Via Natural or Artificial Opening Endoscopic (ICD-10-PCS; CPT 45380; principal; 2020-08-21 09:00)
DX: Z12.11 Encounter for screening for malignant neoplasm of colon (principal); Z86.010 Personal history of colon polyps; Z87.19 Personal history of other diseases of the digestive system; Z80.0 Family history of malignant neoplasm of digestive organs; K63.5 Polyp of colon; K64.9 Unspecified hemorrhoids; I11.0 Hypertensive heart disease with heart failure; I50.9 Heart failure, unspecified; E78.5 Hyperlipidemia, unspecified; I25.10 Atherosclerotic heart disease of native coronary artery without angina pectoris; M19.90 Unspecified osteoarthritis, unspecified site; Z90.49 Acquired absence of other specified parts of digestive tract
CPT/HCPCS: 45380; 45385; 88305

== ENCOUNTER → 2020-08-27 12:10 | Outpatient (CLI) | payer MEDICARE, SELFPAY ==
[2020-08-27 12:12] LABS: Microscopic, Urine URINE MICROSCOPIC (MICROSCOPIC)
[2020-08-27 13:17] LABS: Appearance,Urine CLEAR (Clear); Bilirubin,Urine Negative (Negative); Blood, Urine TRACE-I (Negative); Color,Urine YELLOW (Yellow); Glucose,Urine (UA) Negative (Negative); Ketones,Urine Negative (Negative); Leukocyte Esterase,Urine Negative (Negative); Nitrate,Urine Negative (Negative); Protein,Urine Negative (Negative)
[2020-08-27 14:03] LABS: Bacteria,Urine Trace /lpf
== END ==
PROVIDERS: Visit Provider Nurse Practitioner Family
DX: E78.5 Hyperlipidemia, unspecified (principal); I10 Essential (primary) hypertension; I25.10 Atherosclerotic heart disease of native coronary artery without angina pectoris; I31.3 Pericardial effusion (noninflammatory); R06.00 Dyspnea, unspecified
CPT/HCPCS: 81001

== ENCOUNTER 2020-10-08 15:30 | Emergency (ER) | payer MEDICARE, SELFPAY ==
[2020-10-08 15:55] VITALS: BP 143/73; PULSE 74; RESP 20; TEMP 36.8; O2SAT 95; BMI 29.1
--- NOTE | 2020-10-08 16:10 | HMH.EDUTC ---
[facility] [place] Clinical Impression: UTI (urinary tract infection) Qualifiers: Urinary tract infection type: site unspecified Hematuria presence: with hematuria Qualified Code(s): N39.0 - Urinary tract infection, site not specified Disposition: Home, Self-Care Condition on Discharge: Good Instructions: Urinary Tract Infection, Urine Culture, DI for Urinary Tract Infection (UTI), Cephalexin Additional Instructions: *Increase fluids. Water not Soda or Tea *Start antibiotic immediately and be sure to take as ordered for the FULL length of time although you should start to see improvement over the next 48 hours *Pyridium as needed Remember this medication will turn your urine Forbes. This is normal but it will stain what ever it gets on *You should not use Pyridium for more than 48 hours. If so , follow up with your primary physician to review urine culture and ensure that antibiotic is adequate for infection *Be SURE to follow up anytime for new or worsening symptoms with your family doctor. AND in 48 hours for urine culture results with your family doctor, if you do not have a doctor then you may call back to the [facility] for urine culture results and further treatment. We do recommend that you choose and establish care with a Primary Care Physician. AND follow up with them in 10-14 days to repeat UA to ensure infection is resolved and blood no longer present *Be sure to let your PCP know that we sent urine cultures from the [facility] so they can follow up to ensure that you area the on the correct antibiotic Call your doctor office and make appointment for 48 hours (2 days from today) to follow up and get the results of your urine culture and further treatment Return if needed Straight to ER if any life threatening symptoms Prescriptions: cephALEXin [Keflex 500mg Cap] 500 mg PO Q12H 10 Days #20 cap Transmission Status: Received by [facility] Phenazopyridine HCl [Pyridium 200mg Tablet] 200 pow PO TID #6 tab Transmission Status: Received by [facility] Referrals: Wally Cherry MD [Primary Care Provider] - As needed Time of Disposition: 16:21 Medical Decision Making - Yehuda Inquiry Pt receiving controlled substance: No Yehuda was queried for this patient: No Vital Signs: 10/08/20 15:55 10/08/20 16:21 Temperature 98.3 F 98.3 F Temperature Source Oral Pulse Rate 74 Pulse Rate [Left Brachial] 74 Respiratory Rate 20 20 Blood Pressure 143/73 H Blood Pressure [Left Arm] 143/73 H Blood Pressure Mean [Left Arm] 96 Blood Pressure Source [Left Arm] Automatic Cuff Blood Pressure Position [Left Arm] Sitting 02 Sat by Pulse Oximetry 95 Oxygen Delivery Method Room Air - Lab Data Lab results reviewed: Yes: I reviewed the patient's lab results. Lab Results 10/08/20 15:46: Urine Color Yellow, Urine Appearance Clear, Urine pH 5.0, Ur Specific [place] 1.010, Urine Protein Negative, Urine Glucose (UA) Negative, Urine Ketones Negative, Urine Blood 1+, Urine Nitrate Negative, Urine Bilirubin Negative, Urine Urobilinogen 0.2, Ur Leukocyte Esterase 1+ A Orders (Tests/Meds): ORDERS Category Date Time Status Urine Culture Routine Micro 10/08/20 15:45 Received Medical Decision Narrative: Patient states that she is allergic to PCN but has taken Keflex before without reactions or complications [facility] [facility] [place] - General Stated complaint: Possible UTI; spot in throat Time Seen by Provider: 10/08/20 16:10 Mode of Arrival: Ambulatory Source of Information: Patient Limitations: No Limitations Description of Symptoms (Recalled from Triage Doc. by RN): PATIENT C/O BURNING AND URGENCY WITH URINATION X SEVERAL DAYS HEENT Symptoms (Recalled from RN notes): No Resp Symptoms (Recalled from RN notes): No Skin Symptoms (Recalled from RN notes): No MS Symptoms (Recalled from RN notes): No Functional Status (Recalled from RN notes): WNL - History of Present Illness Provider Complaint: Patient st
[2020-10-08 16:18] LABS: Apearance,Urine Clear (Clear); Color,Urine Yellow (Yellow); Glucose,Urine (UA) Negative (Negative); Ketones,Urine Negative (Negative); Protein,Urine Negative (Negative)
[2020-10-08 16:19] LABS: Bilirubin,Urine Negative (Negative); Blood, Urine 1+ (Negative); UTC Leukocyte Esterase,Urine 1+ (Negative); UTC Nitrate,Urine Negative (Negative); Urobilinogen,Urine 0.2 EU/dl (0.2)
[2020-10-08 16:21] VITALS: BP 143/73; PULSE 74; RESP 20; TEMP 36.8; O2SAT 95
== END 2020-10-08 16:28 | disposition home or self-care (01) ==
PROVIDERS: Emergency Provider Nurse Practitioner; PCP Emergency Medicine
DX: N30.00 Acute cystitis without hematuria (principal); B96.20 Unspecified Escherichia coli [E. coli] as the cause of diseases classified elsewhere; E78.5 Hyperlipidemia, unspecified; I25.10 Atherosclerotic heart disease of native coronary artery without angina pectoris; I10 Essential (primary) hypertension; E03.9 Hypothyroidism, unspecified; M81.0 Age-related osteoporosis without current pathological fracture; Z79.899 Other long term (current) drug therapy
CPT/HCPCS: G0463; 81003; 87086; 87088; 87186; 99201

== ENCOUNTER 2020-10-22 09:32 | Emergency (ER) | payer MEDICARE, SELFPAY ==
[2020-10-22 09:45] VITALS: BP 144/50; PULSE 70; RESP 20; TEMP 36.8; O2SAT 96
--- NOTE | 2020-10-22 10:25 | HMH.EDUTC ---
[facility] [place]ression: Irritated throat Disposition: Home, Self-Care Condition on Discharge: Good Instructions: Sore Throat, Urine Culture, Muscle Strain, DI for Muscle Strain Additional Instructions: *Monitor Temp, Over the counter Motrin or Tylenol as directed/as needed Tylenol every 4 hours and Motrin every 6 hours (as long as your family doctor has told you that you can take it) for fever or pain. and straight to ER if unable to lower temp less than 101.0 after medication given *Warm salt water gargles may help to soothe the throat *Throat Lozenges *Warm fluids like tea with honey may help to soothe the throat *Sleep elevated *Humidifier/Vaporizer *Flonase 2 sprays in each nostril daily but be aware that it may take 2-3 days before you notice improvement Over the counter muscle rubs may help with muscle aches and pain Make sure to follow up for your urine culture results to make sure that you are on the correct medication to help to clear up your infection Follow up with Dr Cooper today at 2pm for further evaluation and examination of your throat Follow up IMMEDIATELY for new or worsening symptoms or no Noticeable improvement over the next 48-72 hours. 911 for difficulty breathing or swallowing Referrals: Wally Cherry MD [Primary Care Provider] - As needed Dakota Cooper MD [Staff Physician] - 10/22/20 2:00 pm Time of Disposition: 10:43 Medical Decision Making - Yehuda Inquiry Pt receiving controlled substance: No Yehuda was queried for this patient: No Vital Signs: 10/22/20 09:45 10/22/20 10:43 Temperature 98.2 F 98.2 F Temperature Source Oral Pulse Rate 70 Pulse Rate [Right Brachial] 70 Respiratory Rate 20 20 Blood Pressure 144/50 H Blood Pressure [Right Arm] 144/50 H Blood Pressure Mean [Right Arm] 81 Blood Pressure Source [Right Arm] Automatic Cuff Blood Pressure Position [Right Arm] Sitting 02 Sat by Pulse Oximetry 96 Oxygen Delivery Method Room Air - Lab Data Lab results reviewed: Yes: I reviewed the patient's lab results. Lab Results 10/22/20 12:36: Urine Color [place], Urine Appearance Clear, Urine pH 5.0, Ur Specific [place] 1.025, Urine Protein Trace, Urine Glucose (UA) 1+, Urine Ketones Negative, Urine Blood Negative, Urine Nitrate Positive A, Urine Bilirubin Negative, Urine Urobilinogen 1, Ur Leukocyte Esterase Negative Orders (Tests/Meds): ORDERS Category Date Time Status Urine Culture Routine Micro 10/22/20 10:00 Received [facility] [place] - General Stated complaint: pain right side, pain inside throat Time Seen by Provider: 10/22/20 10:25 Mode of Arrival: Ambulatory Source of Information: Patient Limitations: No Limitations Description of Symptoms (Recalled from Triage Doc. by RN): PATIENT C/O RIGHT FLANK PAIN SINCE YESTERDAY. REPORTS A DRY SPOT TO RIGHT SIDE OF THROAT THAT SHE WAS SEEN FOR ON 10/08 BUT STATES IT IS STILL THERE AND HURTS HEENT Symptoms (Recalled from RN notes): Yes Resp Symptoms (Recalled from RN notes): No Skin Symptoms (Recalled from RN notes): No MS Symptoms (Recalled from RN notes): No Functional Status (Recalled from RN notes): WNL - History of Present Illness Provider Complaint: Patient states that she is has been having raw irritated spot on the right side of throat that has been there about 2 weeks and hurts when she swallows and feels like it is going down her throat State that yesterday she had a little burning with urination and is currently on medication for UTI and unsure if it is working States that today she is not having any burning or pain but still wanted to get it checked States that she also pulled a muscle in her right side and wasn't sure what she could use for it it is sore - Related Data Home Medications Medication Instructions Recorded Confirmed Furosemide [Furosemide 40MG tAB*] 40 mg PO DAILY 08/21/20 10/08/20 Losartan Potassium [Cozaar 50mg 50 mg PO DAILY 08/21/20 10/08/20 Tablets] Atorvastatin
[2020-10-22 10:43] VITALS: BP 144/50; PULSE 70; RESP 20; TEMP 36.8; O2SAT 96
[2020-10-22 12:37] LABS: Apearance,Urine Clear (Clear); Color,Urine Orange (Yellow); Protein,Urine Trace (Negative); Specific Gravity, Urine 1.025 (1.005-1.030)
[2020-10-22 12:38] LABS: Bilirubin,Urine Negative (Negative); Blood, Urine Negative (Negative); Glucose,Urine (UA) 1+ (Negative); Ketones,Urine Negative (Negative); UTC Leukocyte Esterase,Urine Negative (Negative); UTC Nitrate,Urine Positive (Negative); Urobilinogen,Urine 1 EU/dl (0.2)
== END 2020-10-22 10:45 | disposition home or self-care (01) ==
PROVIDERS: Emergency Provider Nurse Practitioner; PCP Emergency Medicine
DX: J39.2 Other diseases of pharynx (principal); R10.11 Right upper quadrant pain; E78.5 Hyperlipidemia, unspecified; I10 Essential (primary) hypertension; I25.10 Atherosclerotic heart disease of native coronary artery without angina pectoris; E03.9 Hypothyroidism, unspecified; M81.0 Age-related osteoporosis without current pathological fracture; Z79.899 Other long term (current) drug therapy; Z88.8 Allergy status to other drugs, medicaments and biological substances
CPT/HCPCS: G0463; 81003; 87086; 99201

== ENCOUNTER → 2020-10-29 15:10 | Outpatient (POV) | payer MEDICARE, SELFPAY | PROVIDERS: Visit Provider Nurse Practitioner Family | DX: Z00.00 Encounter for general adult medical examination without abnormal findings (principal) ==

== ENCOUNTER → 2021-01-30 10:57 | Outpatient (CLI) | payer MEDICARE, SELFPAY | PROVIDERS: PCP Emergency Medicine; Visit Provider Nurse Practitioner Family | DX: E78.2 Mixed hyperlipidemia (principal); I10 Essential (primary) hypertension; I25.10 Atherosclerotic heart disease of native coronary artery without angina pectoris; I31.3 Pericardial effusion (noninflammatory); I51.89 Other ill-defined heart diseases | CPT/HCPCS: 93306 ==

== ENCOUNTER → 2021-08-06 16:19 | Outpatient (CLI) | payer MEDICARE, SELFPAY | PROVIDERS: Visit Provider Emergency Medicine | DX: R30.0 Dysuria (principal); N39.0 Urinary tract infection, site not specified | CPT/HCPCS: 87086; 87210 ==

== ENCOUNTER → 2021-08-06 17:30 | Outpatient (CLI) | payer MEDICARE, SELFPAY | PROVIDERS: Visit Provider Physician Assistant | DX: N39.0 Urinary tract infection, site not specified (principal) ==

== ENCOUNTER → 2021-08-08 09:58 | Outpatient (CLI) | payer MEDICARE, SELFPAY ==
--- NOTE | 2021-08-08 09:59 | CA_ITS ---
APPROVED REPORT EXAM: Comprehensive 2D, Doppler, and color-flow Echocardiogram Clinical Trials Assistant: Leonela Ding RT(R) Ht: 5 ft 4 in Wt: 171lbs BSA: 1.83 BP: 128/74 mmHg Indications: CP, DD, HTN, hyperlipidemia, abn EKG, CAD, pericardial effusion 2D Dimensions LVOT 1.95 cm (M/F) 1.5-2.5 LA Volume 58.90 mL LA Volume Index 32.18 mL/m2 (M/F) 16-34 M-Mode Dimensions RVDd 2.25 cm (0.9-2.6) LA Diam 4.24 cm (1.9-4.0) LVDd 4.06 cm (3.5-5.7) Ao Diam 2.62 cm (2.0-3.7) LVDs 2.49 cm (3.5-5.7) IVSd 0.68 cm (0.6-1.1) PWd 0.93 cm (0.6-1.1) EF (Teich) 69.50% FS 38.70% EDV (Teich) 72.50 mL ESV (Teich) 22.10 mL LV Diastology E Decel Time 257.00 (160-240 msec) E/A Ratio 0.7 MED E' 9.40 (< 7 cm/sec) E'/MED E' Ratio 7.62 (>14) LAT E' 9.90 (<10 cm/sec) E/LAT E' Ratio 7.23 (>14) Mitral Valve MV E Max Sathya. 72.00 (40-130 cm/s) MV A Velocity 105.00 (40-130 cm/s) E/A Ratio 0.68 MV Decel. Time 257.00 (160-240 ms) MV PHT 75.00 ms Left Ventricle Left atrium is mildly enlarged, left ventricle is normal size, mild concentric left ventricular hypertrophy, visually estimated ejection fraction 55% with no regional wall motion abnormality, grade 1 diastolic dysfunction seen without tissue Doppler evidence of raise left atrial pressure. Right Ventricle Right atrium and right ventricle are normal size and contractility. Aortic Valve Aortic valve is minimally thickened and fibrosed, there is no aortic stenosis or aortic insufficiency. Mitral Valve Mitral valve has mitral annular calcification, leaflets are minimally thickened, there is no mitral stenosis, there is mild mitral regurgitation. Tricuspid Valve Tricuspid valve grossly normal, there is mild tricuspid regurgitation, tricuspid regurgitation jet velocity is inadequate for calculation of the right ventricular systolic pressure. Pulmonic Valve Pulmonic valve is poorly visualized. Great Vessels Aortic root is normal size. Inferior vena cava is not well visualized. Pericardium There is moderate sized pericardial effusion noted without Doppler evidence of reduced intrapericardial pressure or tamponade. Conclusion 1. Mildly enlarged left atrium, normal left ventricular size, mild concentric left ventricular hypertrophy, visually estimated ejection fraction 55% with no regional wall motion abnormality, grade 1 diastolic dysfunction seen without tissue Doppler evidence of raise left atrial pressure. 2. Moderate-sized circumferential pericardial effusion without Doppler evidence of raise intrapericardial pressure or tamponade. Electronically signed by : Eric Manuel MD 08/09/2021 12:20:58
== END ==
PROVIDERS: PCP Emergency Medicine; Visit Provider Physician Assistant
DX: E78.2 Mixed hyperlipidemia (principal); I10 Essential (primary) hypertension; I25.10 Atherosclerotic heart disease of native coronary artery without angina pectoris; I31.3 Pericardial effusion (noninflammatory); I51.89 Other ill-defined heart diseases; R07.89 Other chest pain; R94.31 Abnormal electrocardiogram [ECG] [EKG]
CPT/HCPCS: 93306

== ENCOUNTER → 2021-08-08 19:28 | Outpatient (CLI) | payer MEDICARE, SELFPAY | PROVIDERS: Visit Provider Emergency Medicine | DX: R82.90 Unspecified abnormal findings in urine (principal); I25.10 Atherosclerotic heart disease of native coronary artery without angina pectoris; R07.89 Other chest pain; R94.31 Abnormal electrocardiogram [ECG] [EKG] | CPT/HCPCS: 87086; 87088; 87186; 93306 ==

== ENCOUNTER 2021-08-10 11:56 | Emergency (ER) | payer MEDICARE, SELFPAY ==
[2021-08-10 12:21] VITALS: BP 144/70; PULSE 73; RESP 20; TEMP 36.6; O2SAT 97; BMI 29.2
[2021-08-10 12:32] LABS: Apearance,Urine Cloudy (Clear); Blood, Urine 1+ (Negative); Color,Urine Dark Yellow (Yellow); Glucose,Urine (UA) Negative (Negative); Ketones,Urine TRACE (Negative); Protein,Urine 1+ (Negative); Specific Gravity, Urine > 1.030 (1.005-1.030)
[2021-08-10 12:33] LABS: Bilirubin,Urine 1+ (Negative); UTC Leukocyte Esterase,Urine Negative (Negative); UTC Nitrate,Urine Negative (Negative); Urobilinogen,Urine 1 EU/dl (0.2)
--- NOTE | 2021-08-10 12:42 | HMH.EDUTC ---
[facility] [place] Clinical Impression: UTI (urinary tract infection) Qualifiers: Urinary tract infection type: site unspecified Hematuria presence: with hematuria Qualified Code(s): N39.0 - Urinary tract infection, site not specified Disposition: Home, Self-Care Condition on Discharge: Good Instructions: DI for Urinary Tract Infection (UTI) Additional Instructions: Drink plenty of fluids. Take tylenol or ibuprofen for pain or fever. Take the medications as directed. Follow up with your regular doctor. GO TO THE ER FOR ANY WORSENING SYMPTOMS The pyridium will make your urine turn orange, this is an expected side effect. It will stain your clothes if it comes into contact with them. Prescriptions: Sulfamethoxazole/Trimethoprim [Bactrim DS tablet] 1 each PO BID 7 Days #14 tab Transmission Status: Received by [facility] #[id number] Phenazopyridine HCl [Pyridium 200mg Tablet] 200 pow PO TID #6 tab Transmission Status: Received by [facility] #[id number] Ondansetron [Zofran 4mg ODT] 4 mg PO DAILYP PRN #12 tab PRN Reason: Nausea Transmission Status: Received by [facility] #[id number] Referrals: Wally Cherry MD [Primary Care Provider] - Time of Disposition: 12:55 Medical Decision Making - Medical Records Medical records reviewed: No: I reviewed the patient's medical records. - Yehuda Inquiry Pt receiving controlled substance: No Vital Signs: 08/10/21 12:21 08/10/21 13:23 Temperature 98 F 0 F L Temperature Source Oral Pulse Rate 0 L Pulse Rate [Left] 73 Respiratory Rate 20 0 L Blood Pressure 0/0 L Blood Pressure [Right Arm] 144/70 H Blood Pressure Mean [Right Arm] 94 02 Sat by Pulse Oximetry 97 - Lab Data Lab results reviewed: Yes: I reviewed the patient's lab results. Lab Results 08/10/21 12:29: Urine Color Dark yellow, Urine Appearance Cloudy, Urine pH 5.0, Ur Specific [place] > 1.030 H, Urine Protein 1+, Urine Glucose (UA) Negative, Urine Ketones Trace, Urine Blood 1+, Urine Nitrate Negative, Urine Bilirubin 1+ A, Urine Urobilinogen 1, Ur Leukocyte Esterase Negative Orders (Tests/Meds): ORDERS Category Date Time Status Urine Culture Stat Micro 08/10/21 [place] [facility] [place] - General Stated complaint: possible uti Time Seen by Provider: 08/10/21 12:42 Mode of Arrival: Ambulatory Source of Information: Patient Limitations: No Limitations Description of Symptoms (Recalled from Triage Doc. by RN): pt is having burning with urination and nausea. HEENT Symptoms (Recalled from RN notes): No Resp Symptoms (Recalled from RN notes): No Skin Symptoms (Recalled from RN notes): No MS Symptoms (Recalled from RN notes): No Functional Status (Recalled from RN notes): na - History of Present Illness Provider Complaint: She states that she has had burning with urination for the past 2 days. She states that she feels like she is getting a uti. - Related Data Home Medications Medication Instructions Recorded Confirmed montelukast 10 mg tablet 10 mg PO DAILY 11/05/20 08/08/21 Previous Rx's Medication Instructions Recorded mirabegron 25 mg tablet,extended See Rx Instructions .ROUTE 06/25/21 release 24 hr .COMPLEX #90 tab atorvastatin 40 mg tablet See Rx Instructions .ROUTE 07/10/21 .COMPLEX #30 tab furosemide 40 mg tablet See Rx Instructions .ROUTE 07/10/21 .COMPLEX #30 tab losartan 50 mg tablet See Rx Instructions .ROUTE 07/16/21 .COMPLEX #30 tab levofloxacin 250 mg tablet 250 mg PO DAILY #10 tab 08/06/21 phenazopyridine 200 mg tablet 200 mg PO TID PRN 0 Days #6 tab 08/06/21 Ondansetron [Zofran 4mg ODT] 4 mg PO DAILYP PRN #12 tab 08/10/21 Phenazopyridine HCl [Pyridium 200 pow PO TID #6 tab 08/10/21 200mg Tablet] Sulfamethoxazole/Trimethoprim 1 each PO BID 7 Days #14 tab 08/10/21 [Bactrim DS tablet] Allergies Allergy/AdvReac Type Severity Reaction Status Date / Time Penicillins Allergy Unknown I-RASH V
[2021-08-10 13:23] VITALS: BP 0/0; PULSE 0; RESP 0; TEMP -17.7; TEMP 0
== END 2021-08-10 13:24 | disposition home or self-care (01) ==
PROVIDERS: Emergency Provider Nurse Practitioner Family; PCP Emergency Medicine
DX: N30.00 Acute cystitis without hematuria (principal); B96.20 Unspecified Escherichia coli [E. coli] as the cause of diseases classified elsewhere; I10 Essential (primary) hypertension; E78.5 Hyperlipidemia, unspecified; E03.9 Hypothyroidism, unspecified; Z79.899 Other long term (current) drug therapy
CPT/HCPCS: G0463; 81003; 87086; 87088; 87186; 99202

== ENCOUNTER 2021-11-16 11:19 | Emergency (ER) | payer MEDICARE, SELFPAY ==
[2021-11-16 12:52] VITALS: BP 136/56; PULSE 73; RESP 20; TEMP 37.2; O2SAT 92; BMI 29.2
--- NOTE | 2021-11-16 13:31 | HMH.EDUTC ---
[facility] [place] Disposition Clinical Impression: Sinusitis Qualifiers: Sinusitis location: unspecified location Chronicity: acute Recurrence: non-recurrent Qualified Code(s): J01.90 - Acute sinusitis, unspecified Disposition: Home, Self-Care Condition on Discharge: Good Instructions: DI for Sinusitis Additional Instructions: Drink plenty of fluids. Take tylenol or ibuprofen for pain or fever. Take the medications as directed. Follow up with your regular doctor. GO TO THE ER FOR ANY WORSENING SYMPTOMS Don't start the oral steroids until tomorrow, since you had the shot here today. Prescriptions: methylPREDNISolone [Medrol] 4 mg PO DIRECTED 6 Days #21 packet Transmission Status: Received by [facility] guaiFENesin [Mucinex 600mg tablet] 1 - 2 tab PO BIDP PRN #30 tab PRN Reason: Congestion Transmission Status: Received by [facility] Azithromycin [Z-Waqar 250mg Tab*] 250 mg PO UD DOSE PK #6 tab Transmission Status: Received by [facility] Referrals: Wally Cherry MD [Primary Care Provider] - Time of Disposition: 14:04 Medical Decision Making - Medical Records Medical records reviewed: No: I reviewed the patient's medical records. - Yehuda Inquiry Pt receiving controlled substance: No Vital Signs: 11/16/21 12:52 11/16/21 13:44 Temperature 98.9 F 98.9 F Temperature Source Oral Pulse Rate 73 Pulse Rate [Left] 73 Respiratory Rate 20 20 Blood Pressure 136/56 L Blood Pressure [Right Arm] 136/56 L Blood Pressure Mean [Right Arm] 82 02 Sat by Pulse Oximetry 92 L - Lab Data Lab results reviewed: Yes: I reviewed the patient's lab results. Orders (Tests/Meds): ED MEDICATIONS Discontinued Medications Generic Name Dose Route Start Last Admin Trade Name Freq PRN Reason Stop Dose Admin Methylprednisolone Sodium Succinate 125 mg 11/16/21 13:37 11/16/21 13:42 Methylprednisolone Sod Succ 125mg Vial IM 11/16/21 13:38 125 mg ONCE ONE Administration [facility] [place] HPI - General Stated complaint: head congestion,cough Time Seen by Provider: 11/16/21 13:32 Mode of Arrival: Ambulatory Source of Information: Patient Description of Symptoms (Recalled from Triage Doc. by RN): pt c/o nasal drainage/congestion and cough. HEENT Symptoms (Recalled from RN notes): Yes (nasal congestion and drainage) Resp Symptoms (Recalled from RN notes): Yes (cough) Skin Symptoms (Recalled from RN notes): No MS Symptoms (Recalled from RN notes): No Functional Status (Recalled from RN notes): wnl - History of Present Illness Provider Complaint: She c/o sinus congestion for the past 3 days. - Related Data Home Medications Medication Instructions Recorded Confirmed montelukast 10 mg tablet 10 mg PO DAILY 11/05/20 08/08/21 Previous Rx's Medication Instructions Recorded mirabegron 25 mg tablet,extended See Rx Instructions .ROUTE 06/25/21 release 24 hr .COMPLEX #90 tab atorvastatin 40 mg tablet See Rx Instructions .ROUTE 07/10/21 .COMPLEX #30 tab furosemide 40 mg tablet See Rx Instructions .ROUTE 07/10/21 .COMPLEX #30 tab losartan 50 mg tablet See Rx Instructions .ROUTE 07/16/21 .COMPLEX #30 tab levofloxacin 250 mg tablet 250 mg PO DAILY #10 tab 08/06/21 phenazopyridine 200 mg tablet 200 mg PO TID PRN 0 Days #6 tab 08/06/21 Ondansetron [Zofran 4mg ODT] 4 mg PO DAILYP PRN #12 tab 08/10/21 Phenazopyridine HCl [Pyridium 200 pow PO TID #6 tab 08/10/21 200mg Tablet] Sulfamethoxazole/Trimethoprim 1 each PO BID 7 Days #14 tab 08/10/21 [Bactrim DS tablet] Azithromycin [Z-Waqar 250mg Tab*] 250 mg PO UD DOSE PK #6 tab 11/16/21 guaiFENesin [Mucinex 600mg tablet] 1 - 2 tab PO BIDP PRN #30 tab 11/16/21 methylPREDNISolone [Medrol] 4 mg PO DIRECTED 6 Days #21 11/16/21 packet Allergies Allergy/AdvReac Type Severity Reaction Status Date / Time Penicillins Allergy Unknown I-RASH Verified 08/08/21 13:31 - Worker's Comp Is this a Worker's Comp c
[2021-11-16 13:44] VITALS: BP 136/56; PULSE 73; RESP 20; TEMP 37.2
== END 2021-11-16 14:07 | disposition home or self-care (01) ==
PROVIDERS: Emergency Provider Nurse Practitioner Family; PCP Emergency Medicine
DX: J01.90 Acute sinusitis, unspecified (principal); I25.10 Atherosclerotic heart disease of native coronary artery without angina pectoris; E78.5 Hyperlipidemia, unspecified; I10 Essential (primary) hypertension; K21.9 Gastro-esophageal reflux disease without esophagitis; E03.9 Hypothyroidism, unspecified; Z79.899 Other long term (current) drug therapy
CPT/HCPCS: G0463; 96372; 99202

== ENCOUNTER 2021-11-25 16:00 | Emergency (ER) | payer MEDICARE, SELFPAY ==
[2021-11-25 17:00] VITALS: BP 146/69; PULSE 77; RESP 21; TEMP 36.8; O2SAT 96; BMI 29.2
--- NOTE | 2021-11-25 17:44 | HMH.EDUTC ---
[facility] [place] Disposition Clinical Impression: Sinusitis Qualifiers: Sinusitis location: unspecified location Chronicity: unspecified Qualified Code(s): J32.9 - Chronic sinusitis, unspecified Disposition: Home, Self-Care Condition on Discharge: Good Instructions: Sinusitis, DI for Sinusitis, Doxycycline Additional Instructions: *Monitor Temp, Over the counter Motrin or Tylenol as directed/as needed Tylenol every 4 hours and Motrin every 6 hours (as long as your family doctor has told you that you can take it) for fever or pain. and straight to ER if unable to lower temp less than 101.0 after medication given *Warm salt water gargles may help to soothe the throat *Throat Lozenges *Warm fluids like tea with honey may help to soothe the throat *Sleep elevated *Humidifier/Vaporizer *Flonase 2 sprays in each nostril daily but be aware that it may take 2-3 days before you notice improvement Follow up IMMEDIATELY for new or worsening symptoms or no Noticeable improvement over the next 48-72 hours. 911 for difficulty breathing or swallowing You were tested for today for COVID19 your test result should be back in the next 24-48 hours, you may check for your results on the [facility] My Health Portal if you have trouble viewing your results or logging on you may call You was given a handout with instructions for Self Quarantine and Self isolation for while you wait on test results and what to do if they are positive If you are positive the Health Dept will be contacting you also Make sure to take your Vitamins Vit. C Vit D and Zinc if you can take them Prescriptions: Benzonatate [Benzonatate 100mg cap] 100 mg PO Q8HP PRN #15 cap PRN Reason: Cough Transmission Status: Received by [facility] Doxycycline Monohydrate [Doxycycline Owsley 100mg Tab] 100 mg PO Q12 7 Days #14 tab Transmission Status: Received by [facility] Fluticasone Propionate [Flonase 50mcg nasal spray 16gm] 1 spr NS DAILY #1 each Transmission Status: Received by [facility] Referrals: Wally Cherry MD [Primary Care Provider] - As needed Time of Disposition: 17:51 Medical Decision Making - Yehuda Inquiry Pt receiving controlled substance: No Yehuda was queried for this patient: No Vital Signs: 11/25/21 17:00 11/25/21 17:52 Temperature 98.2 F 98.2 F Temperature Source Oral Pulse Rate 77 Pulse Rate [Right Brachial] 77 Respiratory Rate 21 21 Blood Pressure 146/69 H Blood Pressure [Right Arm] 146/69 H Blood Pressure Mean [Right Arm] 94 Blood Pressure Source [Right Arm] Automatic Cuff Blood Pressure Position [Right Arm] Sitting 02 Sat by Pulse Oximetry 96 Oxygen Delivery Method Room Air - Lab Data Lab Results 11/25/21 17:58: Chlamy pneumoniae PCR Not detected, Adenovirus (PCR) Not detected, B. pertussis DNA (PCR) Not detected, Coronavirus OC43 (PCR) Not detected, Coronavirus HKU1 (PCR) Not detected, Coronavirus 229E (PCR) Not detected, SARS-CoV-2 (PCR) Not detected, Coronavirus NL63 (PCR) Not detected, Human Metapneumovir PCR Detected A, Influenza A (H1) PCR Not detected, Influ A (H1N1/09) PCR Not detected, Influenza A (H3) PCR Not detected, Influenza Type A (PCR) Not detected, Influenza Type B (PCR) Not detected, M. pneumoniae (PCR) Not detected, Parainfluenza 1 (PCR) Not detected, Parainfluenza 2 (PCR) Not detected, Parainfluenza 3 (PCR) Not detected, Parainfluenza 4 (PCR) Not detected, RSV (PCR) Not detected, Entero/Rhino (PCR) Not detected [facility] [place] HPI - General Stated complaint: cough,sore throat,cecile Time Seen by Provider: 11/25/21 17:45 Mode of Arrival: Ambulatory Source of Information: Patient Limitations: No Limitations Description of Symptoms (Recalled from Triage Doc. by RN): PATIENT C/O COUGH AND CONGESTION. REPORTS SHE JUST FINISHED A Z-PACK AND STEROIDS AND IS NOT BETTER HEENT Symptoms (Recalled from RN notes): Yes Resp Symptoms (Recalled from RN notes): Yes Skin Symptoms (Recalled from RN notes): No MS Burg[place]
[2021-11-25 17:52] VITALS: BP 146/69; PULSE 77; RESP 21; TEMP 36.8; O2SAT 96
[2021-11-25 18:06] LABS: Adenovirus,PCR Not Detected (NotDetected); Bordetella Pertussis Not Detected (NotDetected); Chlamydophila Pneumoniae, PCR Not Detected (NotDetected); Coronavirus 19, PCR Not Detected (NotDetected); Coronavirus 229E Not Detected (NotDetected); Coronavirus NL63 Not Detected (NotDetected); Coronavirus OC43 Not Detected (NotDetected); Coronovirus HKU1,PCR Not Detected (NotDetected); Influenza A, PCR Not Detected (NotDetected); Influenza AH1, 2009 Not Detected (NotDetected); Influenza AH1, PCR Not Detected (NotDetected); Influenza AH3,PCR Not Detected (NotDetected); Influenza B, PCR Not Detected (NotDetected); Mycoplasma Pneumoniae, PCR Not Detected (NotDetected); Parainfluenza 1, PCR Not Detected (NotDetected); Parainfluenza 2, PCR Not Detected (NotDetected); Parainfluenza 3, PCR Not Detected (NotDetected); Parainfluenza 4, PCR Not Detected (NotDetected); Respiratory Syncytial Virus Not Detected (NotDetected); Rhinovirus/Enterovirus Not Detected (NotDetected)
[2021-11-25 20:06] LABS: Human Metapneumovirus Detected (NotDetected)
== END 2021-11-25 18:00 | disposition home or self-care (01) ==
PROVIDERS: Emergency Provider Nurse Practitioner; PCP Emergency Medicine
DX: J21.1 Acute bronchiolitis due to human metapneumovirus (principal); J32.9 Chronic sinusitis, unspecified; I25.10 Atherosclerotic heart disease of native coronary artery without angina pectoris; E78.5 Hyperlipidemia, unspecified; I10 Essential (primary) hypertension; E03.9 Hypothyroidism, unspecified; M81.0 Age-related osteoporosis without current pathological fracture; Z79.899 Other long term (current) drug therapy
CPT/HCPCS: G0463; 87581; 87632; 87798; 99202; C9803; U0003; U0005

== ENCOUNTER → 2022-02-28 14:45 | Outpatient (CLI) | payer MEDICARE, SELFPAY ==
--- NOTE | 2022-02-28 15:01 | XR_ITS ---
FINAL REPORT CLINICAL HISTORY: dyspnea/chest pain COMPARISON: 06/14/2020 FINDINGS: Two views of the chest were obtained. The heart is enlarged. The mediastinum is normal. No acute pulmonary abnormality is identified. There is no pneumothorax. The bony thorax is intact. A spinal stimulator is present. IMPRESSION: No active cardiopulmonary disease. Reviewed, Interpreted and Dictated by Umesh Mckeon III, MD Transcribed by Rik Marrero Authenticated by Umesh Mckeon III, MD on 02/28/2022 04:22:30 PM [facility]
[2022-02-28 15:29] LABS: Basophils # 0.1 K/mm3 (0-0.2); Basophils % 1.2 % (0.1-2.0); Eosinophils # 0.1 K/mm3 (0.0-0.4); Eosinophils % 1.4 % (0.1-12.0); Hematocrit 45.7 % (37.0-47.0); Hemoglobin 14.9 g/dL (12.2-16.2); Lymphocytes # 1.6 K/mm3 (0.7-4.5); Lymphocytes % 18.7 % (10-50); Mean Corpuscular HGB Conc 32.6 g/dL (31.8-35.4); Mean Corpuscular Hemoglobin 32.6 pg (27.0-31.2); Mean Platelet Volume 9.5 fl (7.4-10.4); Monocytes # 0.4 K/mm3 (0.1-1.0); Monocytes % 4.2 % (1.7-9.3); Neutrophils # 6.4 K/mm3 (1.8-7.8); Neutrophils % 74.5 % (37.0-80.0); Platelet Count 314 K/mm3 (142-424); Red Blood Count 4.57 M/mm3 (4.20-5.40); Red Cell Distribution Width 13.5 % (11.5-17.5); White Blood Count 8.6 K/mm3 (4.8-10.8)
[2022-02-28 15:56] LABS: Alanine Aminotransferase 16 U/L (12-78); Albumin Level 4.3 g/dl (3.5-5.0); Alkaline Phosphatase 93 U/L (38-126); Aspartate Amino Transferase 22 U/L (14-36); Bilirubin,Direct 0.2 mg/dl (0.0-0.4); Bilirubin,Indirect 0.7 mg/dL (0.0-0.9); Bilirubin,Total 0.9 mg/dl (0.2-1.3); Bilirubin,Unconjugated 0.7 mg/dL (0.0-1.1); Chol/HDL Ratio 2.3 (1-3.5); Cholesterol 176 mg/dl (140-200); HDL Cholesterol 78 mg/dl (40-60); Total Protein,Serum 6.9 g/dl (6.3-8.2); Triglycerides 118 mg/dl (30-150); VLDL Cholesterol 24 mg/dL (0-40)
[2022-02-28 16:07] LABS: Direct LDL Cholesterol 52.21 mg/dL (100-129)
[2022-02-28 16:13] LABS: Free T4 (Free Thyroxine) 1.14 ng/dl (0.78-2.19)
[2022-02-28 16:27] LABS: Thyroid Stimulating Hormone 2.29 uIU/mL (0.465-4.68)
== END ==
PROVIDERS: Visit Provider Internal Medicine Cardiovascular Disease
DX: E78.2 Mixed hyperlipidemia (principal); I10 Essential (primary) hypertension; I25.10 Atherosclerotic heart disease of native coronary artery without angina pectoris; R06.00 Dyspnea, unspecified; R07.9 Chest pain, unspecified
CPT/HCPCS: 36415; 71046; 80061; 80076; 84439; 84443; 85025

== ENCOUNTER → 2022-03-06 12:48 | Outpatient (CLI) | payer MEDICARE, SELFPAY ==
--- NOTE | 2022-03-06 12:49 | CA_ITS ---
APPROVED REPORT EXAM: Comprehensive 2D, Doppler, and color-flow Echocardiogram Pack Puller: Kay Smith, MOISÉS, RVS Ht: 5 ft 4 in Wt: 174lbs BSA: 1.84 BP: 155/69 mmHg Indications: CAD, CP, SOB, Chronic unresolved pericardial effusion without Tamponade, Diastolic dysfunction 2D Dimensions IVSd 0.94 cm LVEF (Visual) 64.40 % PWd 0.74 cm LA Volume 39.30 mL LVDd 3.82 cm LA Volume Index 21.40 mL/m2 (M/F) 16-34 LVDs 2.50 cm Aortic Root 2.82 cm Left Atrium 2.68 cm LVOT 2.03 cm (M/F) 1.5-2.5 M-Mode Dimensions RVDd 1.88 cm (0.9-2.6) LA Diam 3.81 cm (1.9-4.0) LVDd 4.16 cm (3.5-5.7) Ao Diam 3.24 cm (2.0-3.7) LVDs 2.80 cm (3.5-5.7) IVSd 0.94 cm (0.6-1.1) PWd 0.84 cm (0.6-1.1) EF (Teich) 61.70% EPSs 1.07 cm FS 32.90% EDV (Teich) 77.30 mL TAPSE 1.82 (<1.7) ESV (Teich) 29.60 mL LV Diastology E Decel Time 340.00 (160-240 msec) E/A Ratio 0.71 MED E' 8.20 (< 7 cm/sec) MED A' 6.80 cm/s E'/MED E' Ratio 7.32 (>14) LAT E' 9.10 (<10 cm/sec) LAT A' 9.90 cm/s E/LAT E' Ratio 6.59 (>14) Aortic Valve LVOT Max 98.00 (70-110 cm/s) LVOT VTI 19.87 cm AoV Peak Sathya. 150.00 (50-130 cm/s) AO Peak GR. 9.00 mmHg AO Mean GR. 3.80 (<5 mmHg) AO VTI 26.26 (18-25 cm) THI (VTI) 2.45 (2.5-4.5 cm2) Mitral Valve MV A Velocity 85.00 (40-130 cm/s) E/A Ratio 0.71 MV Decel. Time 340.00 (160-240 ms) MV Mean Gr. 0.90 (<2mmHg) MV PHT 87.00 ms Pulmonary Valve PV Peak Velocity 92.00 (50-150 cm/s) Tricuspid Valve TR P. Velocity 184.00 cm/s RAP Estimate 10.00 mmHg RVSP 23.60 mmHg Left Ventricle Left atrium is mildly enlarged, left ventricle is normal size, mild concentric left ventricular hypertrophy, estimated ejection fraction 55% with no regional wall motion abnormality, Doppler evidence of impaired LV relaxation seen. Tissue Doppler is inconclusive. Right Ventricle Right atrium and right ventricle are normal size, there is intermittent buckling of the right ventricular free wall. Aortic Valve Aortic valve is minimally thickened and fibrosed there is no aortic stenosis or aortic insufficiency. Mitral Valve Mitral valve leaflets are minimally thickened, there is mild mitral regurgitation Tricuspid Valve Tricuspid valve grossly normal, there is mild tricuspid regurgitation, tricuspid regurgitation jet velocity is inadequate for calculation of the right ventricular systolic pressure. Pulmonic Valve Pulmonic valve is poorly visualized. Great Vessels Aortic root is normal size. Inferior vena cava is poorly visualized. Pericardium Moderate to large sized pericardial effusion noted, there is significant variation in the mitral inflow tricuspid inflow velocities with respiration raising the concern for presence of raised intrapericardial pressure and tamponade physiology. Conclusion 1. Mildly enlarged left atrium, normal left ventricular size, mild concentric left ventricular hypertrophy, estimated ejection fraction 55% with no regional wall motion abnormality, Doppler evidence of impaired LV relaxation seen. 2. Moderate to large sized pericardial effusion as described above with Doppler features suggestive of raised intrapericardial pressure and tamponade physiology. 3. Inferior vena cava is poorly visualized. Electronically signed by : Eric Manuel MD 03/07/2022 16:46:31
== END ==
PROVIDERS: PCP Emergency Medicine; Visit Provider Internal Medicine Cardiovascular Disease
DX: E78.2 Mixed hyperlipidemia (principal); I10 Essential (primary) hypertension; I25.10 Atherosclerotic heart disease of native coronary artery without angina pectoris; R06.00 Dyspnea, unspecified; R07.9 Chest pain, unspecified
CPT/HCPCS: 93306

== ENCOUNTER → 2022-03-07 12:39 | Outpatient (CLI) | payer MEDICARE, SELFPAY ==
[2022-03-07 13:34] LABS: Basophils # 0.1 K/mm3 (0-0.2); Basophils % 0.8 % (0.1-2.0); Eosinophils # 0.1 K/mm3 (0.0-0.4); Eosinophils % 0.8 % (0.1-12.0); Hematocrit 46.8 % (37.0-47.0); Hemoglobin 14.8 g/dL (12.2-16.2); Lymphocytes # 1.5 K/mm3 (0.7-4.5); Lymphocytes % 22.5 % (10-50); Mean Corpuscular HGB Conc 31.7 g/dL (31.8-35.4); Mean Corpuscular Hemoglobin 32.1 pg (27.0-31.2); Mean Corpuscular Volume 101.2 fl (81-99); Mean Platelet Volume 8.2 fl (7.4-10.4); Monocytes # 0.4 K/mm3 (0.1-1.0); Monocytes % 5.7 % (1.7-9.3); Neutrophils # 4.8 K/mm3 (1.8-7.8); Neutrophils % 70.1 % (37.0-80.0); Platelet Count 303 K/mm3 (142-424); Red Blood Count 4.62 M/mm3 (4.20-5.40); Red Cell Distribution Width 13.7 % (11.5-17.5); White Blood Count 6.8 K/mm3 (4.8-10.8)
== END ==
PROVIDERS: PCP Emergency Medicine; Visit Provider Internal Medicine Cardiovascular Disease
DX: E78.2 Mixed hyperlipidemia (principal); I10 Essential (primary) hypertension; I25.10 Atherosclerotic heart disease of native coronary artery without angina pectoris; I31.3 Pericardial effusion (noninflammatory); I31.4 Cardiac tamponade; R94.31 Abnormal electrocardiogram [ECG] [EKG]; I63.9 Cerebral infarction, unspecified; Z01.812 Encounter for preprocedural laboratory examination; Z11.52 Encounter for screening for COVID-19
CPT/HCPCS: 36415; 85025; C9803; U0003; U0005

== ENCOUNTER 2022-03-10 08:15 | Day surgery (SDC) | payer MEDICARE, SELFPAY ==
[2022-03-10] VITALS (17 sets, daily range): BP systolic 97–161; BP diastolic 59–99; PULSE 47–86; RESP 18–20; TEMP 36.9; O2SAT 94–100; BMI 29.5
--- NOTE | 2022-03-10 07:03 | IR_ITS ---
APPROVED REPORT Patient Location: Outpatient Head Of Quality: MARIBEL Cunningham RT (R) PROCEDURES Left heart catheterization Left ventriculogram Selective coronary angiogram Right heart catheterization INDICATION Cardiac tamponade, Informed consent was obtained prior to the procedure. COMPLICATIONS None Estimated Blood Loss: Less than 10 mls TECHNIQUE One percent lidocaine was used to anesthetize the right groin. The right femoral artery was accessed via the Seldinger technique. A 4-Beninese and 7 lao sheath was placed in the right femoral artery and vein respectfully. A 7 Beninese sheath was introduced and a [place]-Tatum catheter was floated using hemodynamic waveforms in the pulmonary artery, right ventricle , and right atrium. Saturations were obtained in the pulmonary artery and the right atrium. The JR-4 and JL-4 catheter was also used to perform left heart catheterization, left ventriculography and selective coronary angiogram. At the end of the procedure the patient was transferred to the post-op holding area in stable condition for arterial sheath removal. ANGIOGRAPHIC RESULTS The left main artery Mild ostial 10 to 20% stenosis The left anterior descending artery Mild 10% diffuse luminal irregularities The circumflex artery Nondominant normal The right coronary artery Dominant with proximal and mid vessel 10 to 20% stenoses The HERNADEZ ventriculogram reveals Normal 65% The left ventricular end-diastolic pressure 10 mmHg Right atrial pressure 5 mmHg Right ventricular pressure 32/5 mmHg Pulmonary artery pressure 32/12 mmHg Pulmonary occlusion pressure 10 mmHg AO saturation 100% PA saturation 84% RA saturation 85% Cardiac output 7.3 L/min per Carlos IMPRESSION Mild nonocclusive coronary artery disease Normal ejection fraction Mild pulmonary artery hypertension with normal left-sided filling pressures and no hemodynamic evidence of cardiac tamponade or constrictive physiology PLAN 1. Mild nonocclusive coronary disease 2. Normal ejection fraction 3. Continue medical management 4. The planned pericardiocentesis procedure has been aborted as no indication is present at this time for such procedure Electronically signed by : Darius Kinney MD 03/10/2022 10:57:50
[2022-03-10 09:31] LABS: Chloride 106 mmol/L (98-107); Potassium 3.8 mmoL/L (3.5-5.1); Sodium 139 mmol/L (136-145)
[2022-03-10 09:34] LABS: Anion Gap 6.8 mEq/L (5-15); Blood Urea Nitrogen 15 mg/dl (7-17); Carbon Dioxide 30 mmol/L (22.0-30.0); Creatinine Clearance Estimated 52 mL/min (50-200); Estimated Glomerular Filt Rate 60 ml/min (>60); GFR (African American) 72 ML/MIN (>60)
[2022-03-10 09:35] LABS: Calcium 9.1 mg/dl (8.4-10.2); Glucose 89 mg/dl (74-100)
== END 2022-03-10 14:50 | disposition home or self-care (01) ==
LOC: CATHLAB 08:16
PROVIDERS: PCP Emergency Medicine; Visit Provider Internal Medicine
DX: I25.119 Atherosclerotic heart disease of native coronary artery with unspecified angina pectoris (principal); E78.2 Mixed hyperlipidemia; I10 Essential (primary) hypertension; I31.3 Pericardial effusion (noninflammatory); I31.4 Cardiac tamponade; R94.31 Abnormal electrocardiogram [ECG] [EKG]
CPT/HCPCS: 33010; 80048; 93458; 99152; C1725; C1769; C1894; J1644; Q9967

== ENCOUNTER → 2022-03-21 14:32 | Outpatient (CLI) | payer MEDICARE, SELFPAY ==
[2022-03-21 16:07] LABS: Blood Urea Nitrogen 12 mg/dl (7-17); Calcium 9.9 mg/dl (8.4-10.2); Carbon Dioxide 33 mmol/L (22.0-30.0); Chloride 104 mmol/L (98-107); Estimated Glomerular Filt Rate 80 ml/min (>60); GFR (African American) 97 ML/MIN (>60); Glucose 90 mg/dl (74-100); Sodium 141 mmol/L (136-145)
== END ==
PROVIDERS: Visit Provider Internal Medicine Cardiovascular Disease
DX: E78.2 Mixed hyperlipidemia (principal); I10 Essential (primary) hypertension; I25.10 Atherosclerotic heart disease of native coronary artery without angina pectoris; I31.3 Pericardial effusion (noninflammatory); I31.4 Cardiac tamponade; R94.31 Abnormal electrocardiogram [ECG] [EKG]
CPT/HCPCS: 36415; 80048

== ENCOUNTER → 2022-03-25 09:08 | Outpatient (POV) | payer MEDICARE, SELFPAY | PROVIDERS: Visit Provider Dermatology | DX: Z00.00 Encounter for general adult medical examination without abnormal findings (principal) ==

== ENCOUNTER 2022-07-26 10:19 | Emergency (ER) | payer MEDICARE, SELFPAY ==
[2022-07-26 11:02] VITALS: BP 143/73; PULSE 70; RESP 16; TEMP 36.8; O2SAT 95
--- NOTE | 2022-07-26 11:08 | EXP.UTC ---
Discharge Plan Prescriptions Prescriptions: New levofloxacin 500 mg tablet 500 mg PO DAILY Qty: 7 0RF No Action montelukast [Singulair] 10 mg tablet 10 mg PO DAILY phenazopyridine [Pyridium] 200 mg tablet 200 mg PO TID PRN (Reason: pain) 0 Days Qty: 6 0RF losartan 50 mg tablet See Rx Instructions .ROUTE .COMPLEX Qty: 30 5RF Dose Instruction: TAKE ONE TABLET BY MOUTH ONCE A DAY Rx Instructions: TAKE ONE TABLET BY MOUTH ONCE A DAY atorvastatin 40 mg tablet See Rx Instructions .ROUTE .COMPLEX Qty: 30 5RF Dose Instruction: TAKE ONE TABLET BY MOUTH ONCE A DAY Rx Instructions: TAKE ONE TABLET BY MOUTH ONCE A DAY furosemide 40 mg tablet See Rx Instructions .ROUTE .COMPLEX Qty: 30 5RF Dose Instruction: TAKE ONE TABLET BY MOUTH ONCE A DAY Rx Instructions: TAKE ONE TABLET BY MOUTH ONCE A DAY fluticasone propionate 120 SPR/BOT bottle 1 spr NS DAILY Rx Instructions: one spray in each nostril daily Referrals Follow up/Referrals: Wally Cherry MD [Primary Care Provider] - See instructions Activity Restrictions/Add. Instructions Additional Instructions/Restrictions: Urine culture results should be available Thursday or Thursday Clinical Impressions Clinical Impression: UTI (urinary tract infection) Discharge ED Provider: Shilpi Regalado [facility] General Stated complaint: possible uti Mode of Arrival: Ambulatory Source of Information: Patient Limitations: No Limitations Time Seen by Provider: 07/26/22 11:06 Description of Symptoms (Recalled from Triage Doc. by RN): patient comes in for burning with urination. symptoms began 3 days ago HEENT Symptoms (Recalled from RN notes): No Resp Symptoms (Recalled from RN notes): No Skin Symptoms (Recalled from RN notes): No MS Symptoms (Recalled from RN notes): No Functional Status (Recalled from RN notes): n/a History of Present Illness Provider Complaint: Dysuria, frequency, malaise X 3 days. No fever. Took leftover Pyridium but it causes her stomach to hurt. Onset (ago): day(s) (3) Location: abdomen Radiation: non-radiation Relieving factors: none Exacerbating factors: none Associated symptoms: denies other symptoms Treatments prior to arrival: none Related Data Home Medications Medication Instructions Recorded Confirmed montelukast 10 mg tablet 10 mg PO DAILY Allergy symptoms 11/05/20 03/28/22 (Singulair) fluticasone propionate 50 1 spr NS DAILY Allergy symptoms 03/10/22 03/28/22 mcg/actuation nasal spray,suspension Previous Rx's Medication Instructions Recorded phenazopyridine 200 mg tablet 200 mg PO TID PRN pain 6 doses #6 08/06/21 (Pyridium) tabs atorvastatin 40 mg tablet See Rx Instructions .Route 03/12/22 .COMPLEX #30 tabs furosemide 40 mg tablet See Rx Instructions .Route 03/12/22 .COMPLEX #30 tabs losartan 50 mg tablet See Rx Instructions .Route 03/12/22 .COMPLEX #30 tabs levofloxacin 500 mg tablet 500 mg PO DAILY #7 tabs 07/26/22 Allergies Allergy/AdvReac Type Severity Reaction Status Date / Time Penicillins Allergy Unknown I-RASH Verified 07/26/22 11:05 Worker's Comp Is this a Worker's Comp case?: No [facility] Medical History (Updated 07/26/22 @ 11:16 by CALI Holt) Atypical angina PVCs (premature ventricular contractions) Social History Smoking Status: Never smoker second hand exposure: No alcohol intake: never substance use type: denies use current occupational status: retired household members: children housing: house current occupational exposures/hazards: No caffeine: Yes ROS Obtained: Yes All systems reviewed & no additional complaints except as documented Genitourinary Female Genitourinary: Reports dysuria and Reports urinary frequency Physical Exam General General appearance: alert and in no apparent distress Head Head exa
[2022-07-26 11:40] VITALS: BP 143/73; PULSE 70; RESP 16; TEMP 36.8
[2022-07-26 13:46] LABS: Apearance,Urine Cloudy (Clear); Blood, Urine 2+ (Negative); Color,Urine Dark Yellow (Yellow); Glucose,Urine (UA) Negative (Negative); Ketones,Urine Negative (Negative); PH,Urine 5.5 (5.0-8.5); Protein,Urine Negative (Negative); Specific Gravity, Urine 1.025 (1.005-1.030)
[2022-07-26 13:47] LABS: Bilirubin,Urine Negative (Negative); UTC Leukocyte Esterase,Urine 1+ (Negative); UTC Nitrate,Urine Negative (Negative); Urobilinogen,Urine 0.2 EU/dl (0.2)
== END 2022-07-26 11:41 | disposition home or self-care (01) ==
LOC: UTC 10:22
PROVIDERS: Emergency Provider Physician Assistant; PCP Emergency Medicine
DX: N39.0 Urinary tract infection, site not specified (principal)
CPT/HCPCS: 81003; 87086; 99212; G0463

== ENCOUNTER → 2022-07-30 14:13 | Outpatient (CLI) | payer MEDICARE, SELFPAY | PROVIDERS: PCP Physician Assistant; Visit Provider Physician Assistant | DX: N89.8 Other specified noninflammatory disorders of vagina (principal) | CPT/HCPCS: 87210 ==

== ENCOUNTER → 2022-11-06 12:34 | Outpatient (CLI) | payer MEDICARE, SELFPAY | PROVIDERS: PCP Family Medicine; Visit Provider Family Medicine | DX: N39.0 Urinary tract infection, site not specified (principal) ==

== ENCOUNTER → 2022-11-11 10:08 | Outpatient (CLI) | payer MEDICARE, SELFPAY ==
[2022-11-11 10:44] LABS: Basophils # 0.1 K/mm3 (0-0.2); Basophils % 0.8 % (0.1-2.0); Eosinophils # 0.1 K/mm3 (0.0-0.4); Eosinophils % 1.4 % (0.1-12.0); Hemoglobin 14.4 g/dL (12.2-16.2); Lymphocytes % 15.8 % (10-50); Mean Corpuscular HGB Conc 31.9 g/dL (31.8-35.4); Mean Corpuscular Hemoglobin 32.7 pg (27.0-31.2); Mean Corpuscular Volume 102.4 fl (81-99); Mean Platelet Volume 7.9 fl (7.4-10.4); Monocytes # 0.4 K/mm3 (0.1-1.0); Monocytes % 5.8 % (1.7-9.3); Neutrophils # 4.7 K/mm3 (1.8-7.8); Neutrophils % 76.3 % (37.0-80.0); Platelet Count 284 K/mm3 (142-424); Red Blood Count 4.39 M/mm3 (4.20-5.40); Red Cell Distribution Width 13.8 % (11.5-17.5); White Blood Count 6.1 K/mm3 (4.8-10.8)
[2022-11-11 11:08] LABS: Chloride 105 mmol/L (98-107); Potassium 3.8 mmoL/L (3.5-5.1); Sodium 141 mmol/L (136-145)
[2022-11-11 11:11] LABS: Alanine Aminotransferase 16 U/L (12-78); Albumin Level 3.7 g/dl (3.5-5.0); Albumin/Globulin Ratio 1.5 (1.1-1.8); Alkaline Phosphatase 97 U/L (38-126); Anion Gap 7.8 mEq/L (5-15); Aspartate Amino Transferase 25 U/L (14-36); Bilirubin,Total 0.8 mg/dl (0.2-1.3); Blood Urea Nitrogen 13 mg/dl (7-17); Carbon Dioxide 32 mmol/L (22.0-30.0); Cholesterol 147 mg/dl (140-200); Estimated Glomerular Filt Rate 60 ml/min (>60); GFR (African American) 72 ML/MIN (>60); Globulin 2.4 g/dL (1.3-3.2); Total Protein,Serum 6.1 g/dl (6.3-8.2); Triglycerides 89 mg/dl (30-150); VLDL Cholesterol 18 mg/dL (0-40)
[2022-11-11 11:12] LABS: Calcium 10.2 mg/dl (8.4-10.2); Chol/HDL Ratio 2.1 (1-3.5); Glucose 89 mg/dl (74-100); HDL Cholesterol 70 mg/dl (40-60)
[2022-11-11 11:22] LABS: Direct LDL Cholesterol 38.98 mg/dL (100-129)
[2022-11-11 11:41] LABS: Thyroid Stimulating Hormone 1.52 uIU/mL (0.465-4.68)
== END ==
PROVIDERS: PCP Family Medicine; Visit Provider Family Medicine
DX: I10 Essential (primary) hypertension (principal); E78.5 Hyperlipidemia, unspecified; R32 Unspecified urinary incontinence
CPT/HCPCS: 36415; 80053; 80061; 84443; 85025; 87086

== ENCOUNTER → 2022-11-13 09:28 | Outpatient (CLI) | payer MEDICARE, SELFPAY ==
--- NOTE | 2022-11-13 09:29 | CT_ITS ---
FINAL REPORT TECHNIQUE: After the administration of intravenous contrast, axial images were obtained through the abdomen and pelvis by computed tomography. This study was performed with technique to keep radiation doses as low as reasonably achievable, (ALARA). Individualized dose reduction techniques using automated exposure control or adjustment of the MA and/or KV according to the patient's size were employed. CLINICAL HISTORY: Abdominal distension COMPARISON: 07/13/2020 FINDINGS: Abdomen: The lung bases demonstrate mild scarring. There is a moderate to large pericardial effusion measuring up to 22 mm in thickness, which is slightly larger than on prior exam.. The liver is normal in size and attenuation. Patient is status post cholecystectomy. The spleen is unremarkable. The adrenals are normal. The pancreas is unremarkable. There are bilateral renal cysts. Kidneys are otherwise unremarkable. The aorta is normal in caliber. There is no free fluid or adenopathy. Pelvis: The appendix is normal. The urinary bladder is unremarkable. There is no free fluid or adenopathy. IMPRESSION: No acute intra-abdominal process. Moderate to large pericardial effusion. Reviewed, Interpreted and Dictated by Umesh Mckeon III, MD Transcribed by Brooke Sanchez Authenticated and [facility]
== END ==
PROVIDERS: PCP Family Medicine; Visit Provider Family Medicine
DX: R14.0 Abdominal distension (gaseous) (principal)
CPT/HCPCS: 74177; Q9967

== ENCOUNTER → 2022-11-25 16:52 | Outpatient (CLI) | payer MEDICARE, SELFPAY ==
--- NOTE | 2022-11-25 16:52 | MM_ITS ---
PROCEDURE INFORMATION: Exam: MG Bilateral Screening 3D Mammography Exam date and time: 11/25/2022 4:43 PM Age: 81 years old Clinical indication: Screening examination TECHNIQUE: Imaging protocol: Bilateral Screening tomosynthesis and 2D mammography including computer-aided detection (CAD) when performed. COMPARISON: 1. MG MM DIG SCREENING MAMM BI W/CAD 07/13/2020 8:31 AM 2. MG DMSB DIGITAL MAMM-SCREEN BILATERAL 03/06/2011 9:38 AM FINDINGS: MAMMOGRAPHY: Breast composition: There are scattered areas of fibroglandular density. Mass: None. Architectural distortion: None. Calcifications: No suspicious calcifications. Asymmetric density: None. Skin thickening: None. Axillary adenopathy: None. IMPRESSION: No mammographic evidence of malignancy. Annual screening is recommended unless otherwise clinically indicated. ASSESSMENT: BI-RADS Category 1: Negative
== END ==
PROVIDERS: PCP Family Medicine; Visit Provider Family Medicine
DX: Z12.31 Encounter for screening mammogram for malignant neoplasm of breast (principal)
CPT/HCPCS: 77063; 77067

== ENCOUNTER → 2023-02-10 10:22 | Outpatient (CLI) | payer MEDICARE, SELFPAY ==
--- NOTE | 2023-02-10 10:28 | XR_ITS ---
FINAL REPORT CLINICAL HISTORY: RIGHT SIDED FOOT PAIN ON TOP COMPARISON: 10/19/2017 FINDINGS: RIGHT FOOT Three views of the right foot demonstrate no acute fracture or dislocation. There are mild degenerative changes. There are small calcaneal spurs. The soft tissues are unremarkable. IMPRESSION: Mild degenerative changes with no acute bony abnormality. Reviewed, Interpreted and Dictated by Umesh Mckeon III, MD Transcribed by Shannon Dodge Authenticated and [facility]
--- NOTE | 2023-02-10 10:28 | XR_ITS ---
FINAL REPORT CLINICAL HISTORY: foot pain COMPARISON: 10/26/2017 FINDINGS: LEFT FOOT Three views of the left foot demonstrate no acute fracture or dislocation. There are mild degenerative changes. There is a small posterior calcaneal spur. 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 The soft tissues are unremarkable. IMPRESSION: Mild degenerative changes with no acute bony abnormality. 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 Reviewed, Interpreted and Dictated by Umesh Mckeon III, MD Transcribed by Shannon Dodge Authenticated and [facility]
== END ==
PROVIDERS: PCP Family Medicine; Visit Provider Nurse Practitioner Family
DX: M79.672 Pain in left foot (principal); M79.671 Pain in right foot
CPT/HCPCS: 73630

== ENCOUNTER 2023-03-16 10:07 | Emergency (ER) | payer MEDICARE, SELFPAY ==
[2023-03-16] VITALS (10 sets, daily range): BP systolic 118–168; BP diastolic 52–86; PULSE 64–75; RESP 10–18; TEMP 36.6; O2SAT 94–99; BMI 28.3
--- NOTE | 2023-03-16 10:17 | PC.NURSE ---
JESUS FISCHER at
--- NOTE | 2023-03-16 10:18 | XR_ITS ---
FINAL REPORT CLINICAL HISTORY: chest pain COMPARISON: 05/2020 FINDINGS: SINGLE VIEW CHEST The heart size is enlarged. The mediastinum is within normal limits. No acute pulmonary abnormality is identified. There is no evidence of pneumothorax. The bony thorax is intact. A spinal stimulator is again seen. IMPRESSION: No acute cardiopulmonary process. Reviewed, Interpreted and Dictated by Umesh Mckeon III, MD Transcribed by Rik Marrero Authenticated and [facility]
[2023-03-16 10:26] LABS: Basophils % 0.4 % (0.1-2.0); Eosinophils # 0.1 K/mm3 (0.0-0.4); Eosinophils % 1.8 % (0.1-12.0); Lymphocytes # 1.4 K/mm3 (0.7-4.5); Lymphocytes % 21.7 % (10-50); Mean Corpuscular HGB Conc 31.9 g/dL (31.8-35.4); Mean Corpuscular Hemoglobin 32.5 pg (27.0-31.2); Mean Corpuscular Volume 101.7 fl (81-99); Mean Platelet Volume 8.1 fl (7.4-10.4); Monocytes # 0.3 K/mm3 (0.1-1.0); Monocytes % 5.2 % (1.7-9.3); Neutrophils # 4.7 K/mm3 (1.8-7.8); Neutrophils % 70.9 % (37.0-80.0); Platelet Count 304 K/mm3 (142-424); Red Blood Count 4.62 M/mm3 (4.20-5.40); Red Cell Distribution Width 13.7 % (11.5-17.5); White Blood Count 6.7 K/mm3 (4.8-10.8)
[2023-03-16 10:31] LABS: Chloride 102 mmol/L (98-107); Potassium 3.5 mmoL/L (3.5-5.1); Sodium 139 mmol/L (136-145)
[2023-03-16 10:34] LABS: Alanine Aminotransferase 20 U/L (12-78); Albumin Level 3.7 g/dl (3.5-5.0); Albumin/Globulin Ratio 1.3 (1.1-1.8); Alkaline Phosphatase 79 U/L (38-126); Anion Gap 8.5 mEq/L (5-15); Aspartate Amino Transferase 23 U/L (14-36); Bilirubin,Total 0.9 mg/dl (0.2-1.3); Blood Urea Nitrogen 15 mg/dl (7-17); Calcium 9.3 mg/dl (8.4-10.2); Carbon Dioxide 32 mmol/L (22.0-30.0); Creatinine Clearance Estimated 51 mL/min (50-200); Estimated Glomerular Filt Rate 60 ml/min (>60); GFR (African American) 72 ML/MIN (>60); Globulin 2.9 g/dL (1.3-3.2); Glucose 96 mg/dl (74-100); Lipase 61 U/L (23-300); Total Protein,Serum 6.6 g/dl (6.3-8.2)
--- NOTE | 2023-03-16 10:38 | ECG_ITS ---
APPROVED REPORT Exam: Resting ECG HR:66 bpm ECG Measurements Heart Rate 66 AXES WV 170 P 18 QRSd 82 QRS 29 QT 347 T 8 QTc 361 Conclusion SINUS RHYTHM LOW QRS VOLTAGE [QRS DEFLECTION < 0.5/1.0 mV IN LIMB/CHEST LEADS] POSSIBLE ANTERIOR MYOCARDIAL INFARCTION , PROBABLY OLD [30 ms Q WAVE IN V3/V4, OR R < 0.2 mV IN V4] ABNORMAL ECG UNCONFIRMED REPORT Electronically signed by : Bridger Orourke MD 03/16/2023 20:30:59
--- NOTE | 2023-03-16 10:44 | HMH.EDCP ---
Discharge Plan Disposition Patient Disposition: Home, Self-Care Prescriptions Prescriptions: New sucralfate [Carafate] 1 gram tablet 1 g PO Q6H 84 Days Qty: 336 0RF No Action loratadine [Claritin] 10 mg tablet 10 mg PO DAILY meloxicam 7.5 mg tablet 7.5 mg PO DAILY 30 Days Qty: 30 2RF estradiol 0.01 % (0.1 mg/gram) cream 1 appful vaginal .COMPLEX PRN (Reason: vaginal dryness) Qty: 42.5 5RF Rx Instructions: 1 appful vaginally PRN; 3 times a week atorvastatin 40 mg tablet See Rx Instructions .ROUTE .COMPLEX Qty: 30 5RF Dose Instruction: TAKE ONE TABLET BY MOUTH ONCE A DAY Rx Instructions: TAKE ONE TABLET BY MOUTH ONCE A DAY losartan 50 mg tablet See Rx Instructions .ROUTE .COMPLEX Qty: 30 5RF Dose Instruction: TAKE ONE TABLET BY MOUTH ONCE A DAY Rx Instructions: TAKE ONE TABLET BY MOUTH ONCE A DAY furosemide 40 mg tablet See Rx Instructions .ROUTE .COMPLEX Qty: 30 5RF Dose Instruction: TAKE ONE TABLET BY MOUTH ONCE A DAY Rx Instructions: TAKE ONE TABLET BY MOUTH ONCE A DAY tolterodine 4 mg capsule,extended release 24hr 4 mg PO DAILY Qty: 30 1RF pantoprazole 40 mg tablet,delayed release (DR/EC) See Rx Instructions .ROUTE .COMPLEX Qty: 30 2RF Dose Instruction: TAKE ONE TABLET BY MOUTH ONCE A DAY Rx Instructions: TAKE ONE TABLET BY MOUTH ONCE A DAY fluticasone propionate 50 mcg/actuation spray,suspension 1 spray intranasal DAILY PRN (Reason: Allergy symptoms) Rx Instructions: one spray in each nostril daily Referrals Follow up/Referrals: Umesh Sargent MD [Staff Physician] - 7-14 days Darius Phillips MD [Staff Physician] - 3 days Ade Howe DO [Primary Care Provider] - 3 days Activity Restrictions/Add. Instructions Additional Instructions/Restrictions: Follow-up with Dr. Phillips in his office in 2 weeks on March 30. And follow-up with Dr. Pantoja or [facility] as an outpatient for endoscopy scope Clinical Impressions Clinical Impression: Chest pain, Pericardial effusion, Esophageal spasm Instructions Patient Instructions: DI for Atypical Chest Pain Discharge ED Provider: Keerthi Orta Chest Pain [facility] General Chief Complaint: Chest Pain Stated Complaint: chest pain Time Seen by Provider: 03/16/23 10:10 Mode of Arrival: Ambulatory Source of Information: Patient Limitations: No Limitations Description of Symptoms (Recalled from ER Triage Doc. by RN): Pt c/o midsternal squeezing type chest pain, pt reports pain began approx 5 days. Pt reports pain has been intermittent in nature. Denies SOA. Reports at times pain worsens after eating. Pt reports hx of of fluid around heart , states she sees dr. phillips for this. History of Present Illness HPI narrative: Patient is a 82-year female who is complaining about chest pain. Patient stated that she is having substernal chest pressure she has had it for 2 days. Patient stated that the night before last she had pressure in the middle of the chest with radiation to her epigastric area. Patient stated that the pain is a pressure type pain like a bloating. Patient's had belching and burping associated with that she took Tylenol and Tums which she said did not help. Patient has no history of acid reflux or hiatal hernia or peptic ulcer disease. She has no history of NE. Patient has history of fluid around her heart called pericardial effusion. She sees Dr. Phillips for this. X-rays have been done in the past that showed abnormality around her heart that is why she ended up seeing Dr. Phillips. Dr. Phillips did a cardiac cath 2 years ago which was negative. She has had echo and stress test as well. complaint: chest pain Onset (ago): day(s) Duration: constant Activity at onset: during rest Pain location: substernal Severity: mild Severity scale (1-10): 6 Quality: aching and dull Pain radiation: abdomen (Epigastric area) Relieving fac
--- NOTE | 2023-03-16 10:59 | PC.NURSE ---
contacted rad r/t troponin order was cancelled in the system per lab staff, states there was an error but they will get troponin running now. Notified ER
[2023-03-16 11:02] LABS: Activated Partial Thrombo Time 24.1 seconds (22.8-30.6); Prothrombin Time 9.8 seconds (10.1-12.5)
--- NOTE | 2023-03-16 11:25 | CT_ITS ---
FINAL REPORT TECHNIQUE: Thin section axial CT images were obtained from the lung apices to the upper abdomen. IV contrast was administered. MIP 3-D reformats were obtained. This study was performed with techniques to keep radiation doses as low as reasonably achievable (ALARA). Individualized dose reduction techniques using automated exposure control or adjustment of mA and/or kV according to the patient's size were employed. CLINICAL HISTORY: cp COMPARISON: June 2020 FINDINGS: The heart size is normal. There is no adenopathy. There is no filling defect to suggest PE. There is no aortic dissection. There is a large pericardial effusion measuring up to 25 mm that is slightly increased from prior. There is mild bibasilar atelectasis or scarring. There is no suspicious infiltrate or nodule. No pleural effusion. A spinal stimulator is noted. IMPRESSION: No pulmonary embolism or aortic dissection. Slight increase in size in a large pericardial effusion. Reviewed, Interpreted and Dictated by Umesh Mckeon III, MD Transcribed by Rik Marrero Authenticated and [facility]
--- NOTE | 2023-03-16 11:25 | CT_ITS ---
FINAL REPORT TECHNIQUE: Postcontrast axial images through the abdomen and pelvis were performed. This study was performed with techniques to keep radiation doses as low as reasonably achievable, (ALARA). Individualized dose reduction techniques using automated exposure control or adjustment of mA and/or kV according to the patient's size were employed. CLINICAL HISTORY: epigastric pain FINDINGS: Abdomen: The liver is normal in size and attenuation. There is been cholecystectomy. The spleen is unremarkable. The adrenals are normal. The pancreas is unremarkable. There are several renal cysts. The aorta is normal in caliber. No free fluid or adenopathy is identified. No findings for mechanical bowel obstruction are identified. Pelvis: The appendix is normal. There is bladder wall thickening. There is a bubble of air in the bladder that may be iatrogenic. The uterus has a lobular contour that may represent small fibroids. No free fluid, free air, abscess or adenopathy is identified. IMPRESSION: No acute process identified. Reviewed, Interpreted and Dictated by Umesh Mckeon III, MD Transcribed by Rik Marrero Authenticated and [facility]
[2023-03-16 11:26] LABS: Troponin I < 0.01 ng/ml (0.00-0.034)
--- NOTE | 2023-03-16 11:51 | PC.NURSE ---
patient to CT
--- NOTE | 2023-03-16 13:27 | PC.NURSE ---
JESUS FISCHER speaking with pepe martin for cardiology
--- NOTE | 2023-03-16 13:50 | PC.NURSE ---
patel martinn at BS
[2023-03-16 13:54] LABS: Troponin I < 0.01 ng/ml (0.00-0.034)
--- NOTE | 2023-03-16 14:01 | EXP.CARD.CON ---
History of Present Illness History of Present Illness Consult date: 03/16/23 Requesting physician: Keerthi Orta Consult reason: chest pain Chief complaint: chest pain History of present illness: 82-year-old white female with past medical history of coronary artery disease, mixed hyperlipidemia, diastolic dysfunction, chronic pericardial effusion and hypertension presented to emergency department with complaints of epigastric chest pain radiating toward neck x5 days. Reports pain is intermittent in nature and often feels like it is gas. Reports pain worse after eating. Denies associated shortness of breath, nausea, vomiting. Took gcmy-yzf-oxedabk antacid and Tylenol with no help. Reports long history 10+ years of pericardial effusion is medically managed. An echo was 02/2022 which showed a normal ejection fraction with a moderate to large size pericardial effusion with concern for tamponade physiology. Patient underwent a left heart cath at that time which showed mild non-occlusive coronary disease, normal ejection fraction and no hemodynamic evidence of cardiac tamponade or constrictive physiology therefore the planned pericardiocentesis procedure was aborted at that time as no indication was present. EKG upon presentation to ER is normal sinus rhythm with a rate of 66 negative for acute ischemic changes. Labs as follow: WBC 6.7, hemoglobin 15.0, sodium 139, potassium 3.5, creatinine 0.9, BUN 15, and serial troponins negative. Chest x-ray negative for acute cardiopulmonary process. CTA of chest was negative for pulmonary embolism or aortic dissection. Slight increase in size and a large pericardial effusion was noted. Etiology consulted for pericardial effusion. Bedside echo pending. [facility] Disclaimer: The information contained in this section may have been updated after the patient was seen, as this information can be updated by other users. Medical History Arthritis Atypical angina Chest pain DDD (degenerative disc disease) Dyspnea Electrocardiogram abnormal OAB (overactive bladder) Pericardial effusion PVCs (premature ventricular contractions) Surgical History Hx of section Hx of cholecystectomy Hx of right heart catheterization Hx of shoulder surgery Hx of total knee replacement Hx of tubal ligation Family History Father Cancer Heart attack Mother Cancer Sister Cancer Son Cancer Daughter Hyperlipidemia Social History Smoking Status: Never smoker second hand exposure: No alcohol intake: never substance use type: denies use current occupational status: retired Travel in the last 8 weeks: None household members: children housing: house lives independently: Yes marital status: number of children: 4 current occupational exposures/hazards: No caffeine: Yes Review of Systems *Cardiovascular Cardiovascular: Reports chest pain and Reports dyspnea *Respiratory Respiratory: Reports dyspnea Exam Data for Last 24 hours Vital signs and Labs for Last 24 Hours: Temp Pulse Resp BP Pulse Ox 97.8 F 64 16 140/62 98 03/16/23 10:09 03/16/23 13:00 03/16/23 11:38 03/16/23 13:00 03/16/23 13:00 Laboratory Results - last 24 hr 03/16/23 10:10: WBC 6.7, RBC 4.62, Hgb 15.0, Hct 47.0, MCV 101.7 H, MCH 32.5 H, MCHC 31.9, RDW 13.7, Plt Count 304, MPV 8.1, Neut % (Auto) 70.9, Lymph % (Auto) 21.7, Hood % (Auto) 5.2, Eos % (Auto) 1.8, Baso % (Auto) 0.4, Neut # (Auto) 4.7, Lymph # (Auto) 1.4, Hood # (Auto) 0.3, Eos # (Auto) 0.1, Baso # (Auto) 0.0 03/16/23 10:10: Troponin I < 0.01 03/16/23 10:10: PT 9.8 L, INR 0.90, APTT 24.1 03/16/23 10:10: Sodium 139, Potassium 3.5, Chloride 102, Carbon Dioxide 32 H, Anion Gap 8.5, BUN 15, Creatinine 0.90, Estimated Creat Clear 5
--- NOTE | 2023-03-16 14:15 | PC.NURSE ---
cv lab staff at for echo
== END 2023-03-16 15:10 | disposition home or self-care (01) ==
PROVIDERS: Emergency Provider Emergency Medicine; PCP Family Medicine
DX: R07.9 Chest pain, unspecified (principal); I31.39 Other pericardial effusion (noninflammatory); K22.4 Dyskinesia of esophagus
CPT/HCPCS: 71045; 71275; 74174; 80053; 83690; 84484; 85025; 85610; 85730; 93005; 93306; 96374; 99285; Q9967

== ENCOUNTER → 2023-04-02 10:28 | Outpatient (CLI) | payer MEDICARE, SELFPAY ==
[2023-04-02 11:54] LABS: Uric Acid 4.2 mg/dl (2.5-6.2)
[2023-04-02 12:00] LABS: C-Reactive Protein 1.6 mg/L (0-4)
[2023-04-02 17:08] LABS: Erythrocyte Sedimentation Rate 33 mm/hr (0-30)
[2023-04-06 09:10] LABS: Antinuclear Antibodies, IFA Negative (.)
[2023-04-15 13:58] LABS: APTT 23.3 sec (.); Anti-Cardiolipin Antibody IgG <10 GPL (.); Anti-Cardiolipin Antibody IgM <10 MPL (.); Beta-2 Glycoprotein I Ab, IgA <10 SAU (.); Beta-2 Glycoprotein I Ab, IgG <10 SGU (.); Beta-2 Glycoprotein I Ab, IgM <10 SMU (.); Hexagonal Phase Phospholipid 1 sec (.); INR 0.9 ratio (.); Thrombin Time 14.4 sec (.)
== END ==
PROVIDERS: PCP Family Medicine; Visit Provider Nurse Practitioner
DX: I31.39 Other pericardial effusion (noninflammatory) (principal); R07.9 Chest pain, unspecified; R60.0 Localized edema; R94.31 Abnormal electrocardiogram [ECG] [EKG]
CPT/HCPCS: 36415; 84550; 85597; 85598; 85610; 85613; 85651; 85670; 85730; 86038; 86140; 86146; 86147; 86431

== ENCOUNTER → 2023-10-19 16:00 | Outpatient (CLI) | payer MEDICARE, SELFPAY ==
--- NOTE | 2023-10-19 11:34 | XR_ITS ---
FINAL REPORT CLINICAL HISTORY: persistent cough COMPARISON: 03/16/2023 FINDINGS: Two views of the chest were obtained. Mild cardiomegaly is present. The mediastinum is normal. There is mild left base atelectasis or scar present. A spinal stimulator is noted overlying the mid thoracic spine. There is no pneumothorax. The bony thorax is intact. IMPRESSION: Mild cardiomegaly. Mild left base atelectasis or scar. Reviewed, Interpreted and Dictated by Umesh Mckeon III, MD Transcribed by Armida Cunningham Authenticated and [facility]
== END ==
PROVIDERS: PCP Obstetrics & Gynecology; Visit Provider Student in an Organized Health Care Education/Training Program
DX: R05.9 Cough, unspecified (principal); R10.9 Unspecified abdominal pain
CPT/HCPCS: 71046; 87086

== ENCOUNTER → 2023-10-28 10:41 | Outpatient (CLI) | payer MEDICARE, SELFPAY | PROVIDERS: PCP Student in an Organized Health Care Education/Training Program; Visit Provider Student in an Organized Health Care Education/Training Program | DX: B96.89 Other specified bacterial agents as the cause of diseases classified elsewhere (principal); M54.50 Low back pain, unspecified; N76.0 Acute vaginitis; B95.2 Enterococcus as the cause of diseases classified elsewhere | CPT/HCPCS: 87086 ==

== ENCOUNTER → 2023-11-09 07:16 | Outpatient (CLI) | payer MEDICARE, SELFPAY ==
--- NOTE | 2023-11-09 07:16 | CT_ITS ---
FINAL REPORT TECHNIQUE: Axial images through the abdomen and pelvis were performed without contrast. This study was performed with techniques to keep radiation doses as low as reasonably achievable, (ALARA). Individualized dose reduction techniques using automated exposure control or adjustment of mA and/or kV according to the patient's size were employed. CLINICAL HISTORY: r flank pain, hematuria COMPARISON: 03/16/2023 FINDINGS: Abdomen: Significant pericardial effusion measuring up to 2.4 cm in depth, similar to the prior study. There is scarring at the lung bases. The liver parenchyma is homogeneous. The gallbladder is absent. The spleen is unremarkable. The pancreas is atrophic. The adrenal glands are unremarkable. There is a 2.8 cm cyst in the superior pole the right kidney. There is no evidence of kidney stones. Pelvis: There is a large amount of stool in the colon. The urinary bladder is unremarkable. The appendix is not visualized. Four point calcified phleboliths are noted in the floor the pelvis. There is no pelvic mass or inflammation. IMPRESSION: 2.8 cm right renal cyst. No evidence of kidney stones. Stable pericardial effusion. Reviewed, Interpreted and Dictated by Colin Mcgregor MD Transcribed by Delia Brown Authenticated and . [facility]
== END ==
PROVIDERS: PCP Student in an Organized Health Care Education/Training Program; Visit Provider Student in an Organized Health Care Education/Training Program
DX: R10.9 Unspecified abdominal pain (principal); R31.9 Hematuria, unspecified
CPT/HCPCS: 74176

== ENCOUNTER 2023-12-03 22:33 | Outpatient (CLI) | payer MEDICARE, SELFPAY ==
[2023-12-03 15:44] LABS: Basophils % 0.5 % (0.1-2.0); Eosinophils % 0.4 % (0.1-12.0); Hematocrit 42.7 % (37.0-47.0); Lymphocytes % 21.8 % (10-50); Mean Corpuscular HGB Conc 32.9 g/dL (31.8-35.4); Mean Corpuscular Hemoglobin 32.5 pg (27.0-31.2); Mean Corpuscular Volume 98.9 fl (81-99); Mean Platelet Volume 9.2 fl (7.4-10.4); Monocytes # 0.3 K/mm3 (0.1-1.0); Monocytes % 5.8 % (1.7-9.3); Neutrophils # 3.2 K/mm3 (1.8-7.8); Neutrophils % 71.6 % (37.0-80.0); Platelet Count 277 K/mm3 (142-424); Red Blood Count 4.32 M/mm3 (4.20-5.40); Red Cell Distribution Width 13.7 % (11.5-17.5); White Blood Count 4.4 K/mm3 (4.8-10.8)
[2023-12-03 15:52] LABS: Alanine Aminotransferase 17 U/L (12-78); Albumin Level 3.8 g/dl (3.5-5.0); Albumin/Globulin Ratio 1.5 (1.1-1.8); Alkaline Phosphatase 83 U/L (38-126); Aspartate Amino Transferase 26 U/L (14-36); Bilirubin,Total 0.7 mg/dl (0.2-1.3); Blood Urea Nitrogen 16 mg/dl (7-17); Calcium 9.4 mg/dl (8.4-10.2); Carbon Dioxide 30 mmol/L (22.0-30.0); Chloride 105 mmol/L (98-107); Chol/HDL Ratio 2.2 (1-3.5); Cholesterol 137 mg/dl (140-200); Estimated Glomerular Filt Rate 60 ml/min (>60); GFR (African American) 72 ML/MIN (>60); Globulin 2.5 g/dL (1.3-3.2); Glucose 87 mg/dl (74-100); HDL Cholesterol 62 mg/dl (40-60); Sodium 141 mmol/L (136-145); Total Protein,Serum 6.3 g/dl (6.3-8.2); Triglycerides 86 mg/dl (30-150); VLDL Cholesterol 17 mg/dL (0-40)
[2023-12-03 16:03] LABS: Direct LDL Cholesterol 47.91 mg/dL (100-129)
[2023-12-03 16:06] LABS: 25-OH Vitamin D, Total 22.8 ng/mL (30-100)
[2023-12-03 16:10] LABS: Free T4 (Free Thyroxine) 1.29 ng/dl (0.78-2.19)
[2023-12-03 16:22] LABS: Thyroid Stimulating Hormone 1.99 uIU/mL (0.465-4.68)
[2023-12-03 16:41] LABS: Vitamin B12 982 pg/mL (239-931)
== END 2023-12-03 23:59 ==
LOC: LAB.DROPOF 22:34
PROVIDERS: PCP Nurse Practitioner Family; Visit Provider Nurse Practitioner Family
DX: N39.0 Urinary tract infection, site not specified (principal); R53.83 Other fatigue; I51.7 Cardiomegaly; I10 Essential (primary) hypertension; R60.0 Localized edema; M89.9 Disorder of bone, unspecified; M94.9 Disorder of cartilage, unspecified; B95.2 Enterococcus as the cause of diseases classified elsewhere; B96.89 Other specified bacterial agents as the cause of diseases classified elsewhere; E55.9 Vitamin D deficiency, unspecified; R79.89 Other specified abnormal findings of blood chemistry
CPT/HCPCS: 80053; 80061; 82306; 82607; 84439; 84443; 85025; 87086

== ENCOUNTER 2024-07-22 10:51 | Outpatient (CLI) | payer MEDICARE, SELFPAY ==
--- NOTE | 2024-07-22 10:52 | CT_ITS ---
FINAL REPORT TECHNIQUE: Axial CT images were performed through the head. Coronal reformatted images were submitted. This study was performed with techniques to keep radiation doses as low as reasonably achievable (ALARA). Individualized dose reduction techniques using automated exposure control or adjustment of mA and/or kV according to the patient's size were employed. CLINICAL HISTORY: Dizziness FINDINGS: There is zcev-al-zhnljkcd atrophy. The ventricles are normal in size. There is no evidence of hemorrhage. There is no mass or edema identified. There is mild physiologic calcification of the basal ganglia. There is no abnormal extra-axial fluid seen. The sinuses are well aerated. IMPRESSION: Atrophy without acute intracranial abnormality. Reviewed, Interpreted and Dictated by Colin Mcgregor MD Transcribed by Vanessa Stewart Authenticated and [facility]
--- NOTE | 2024-07-22 10:53 | CA_ITS ---
APPROVED REPORT EXAM: Comprehensive 2D, Doppler, and color-flow Echocardiogram [employer] Treating Furnace Tender: Emily Hickman CRT Ht: 5 ft 4 in Wt: 178lbs BSA: 1.86 BP: 116/70 mmHg Indications: Chest Pain, chronic pericardial effusion noted on echo 03/16/23 2D Dimensions LA Volume 29.30 mL LA Volume Index 15.30 mL/m2 (M/F) 16-34 M-Mode Dimensions RVDd 3.06 cm (0.9-2.6) LA Diam 3.79 cm (1.9-4.0) LVDd 4.06 cm (3.5-5.7) LVDs 2.68 cm (3.5-5.7) IVSd 1.06 cm (0.6-1.1) PWd 0.97 cm (0.6-1.1) EF (Teich) 63.40% FS 34.00% EDV (Teich) 72.50 mL TAPSE 2.26 (<1.7) ESV (Teich) 26.50 mL LV Diastology E Decel Time 263 (160-240 msec) E/A Ratio 0.81 MED A' 12.50 cm/s LAT A' 9.70 cm/s Aortic Valve AO Peak GR. 7.40 mmHg Mitral Valve MV A Velocity 95.0 (40-130 cm/s) E/A Ratio 0.81 Pulmonary Valve PV Peak Velocity 119.0 (50-150 cm/s) Tricuspid Valve TR P. Velocity 173.00 cm/s RAP Estimate 10.00 mmHg RVSP 21.90 mmHg Left Ventricle The left ventricle is normal size. The left ventricular systolic function is normal. The left ventricular ejection fraction is within the normal range. There is increased LV wall thickness. There is normal LV segmental wall motion. The left ventricular diastolic function is normal. LVEF is 60%. Right Ventricle The right ventricle is normal size. The right ventricular systolic function is normal. Atria Left atrium is mildly dilated. Right atrium is mildly dilated. There is no Doppler evidence of interatrial shunt. Aortic Valve The aortic valve is mildly thickened. There is no aortic valvular stenosis. No aortic regurgitation is present. Mitral Valve The mitral valve is normal in structure. No evidence of mitral valve stenosis. There is no mitral valve regurgitation noted. Tricuspid Valve The tricuspid valve leaflets are thin and pliable. Trace tricuspid regurgitation. There is insufficient TR jet to estimate RVSP. Pulmonic Valve The pulmonary valve is normal in structure. Trace pulmonic regurgitation. Great Vessels The aortic root is normal in size. IVC is normal in size and collapses >50% with inspiration. Pericardium Small sized, circumferential pericardial effusion is present. The largest pocket measures 0.3 cm in diastole. No echo indications of tamponade. Other Information Study Quality: Fair Conclusion Normal biventricular systolic function. Mild biatrial dilation. Small sized, circumferential pericardial effusion is present. The largest pocket measures 0.3 cm in diastole. No echo indications of tamponade. Compared to prior study from 03/16/2023, the size of the pericardial effusion now appears significantly smaller. Electronically signed by : Sharmila Moe MD 07/28/2024 11:26:07
--- NOTE | 2024-07-22 10:53 | XR_ITS ---
FINAL REPORT TECHNIQUE: Cervical spine AP lateral odontoid views, oblique views, and flexion-extension views CLINICAL HISTORY: Dizziness COMPARISON: None FINDINGS: CERVICAL SPINE: AP, lateral, odontoid and oblique views of the cervical spine were obtained, as well as flexion and extension views. There is no prior exam for comparison. There is no acute fracture. There is moderate degenerative narrowing of the C5-6 disc space level. There is minimal spondylolisthesis of C4 on C5, 2 mm, which reduces in extension. Vertebral body height is preserved. The precervical soft tissues are normal. IMPRESSION: Moderate degenerative narrowing at the C5-6 disc space level. Minimal spondylolisthesis of C4 on C5, which reduces in extension. Reviewed, Interpreted and Dictated by Colin Mcgregor MD Transcribed by Armida Cunningham Authenticated and [facility]
== END 2024-07-22 23:59 | disposition home or self-care (01) ==
LOC: RAD 10:52
PROVIDERS: PCP Nurse Practitioner Family; Visit Provider Specialist
DX: R42 Dizziness and giddiness (principal); I95.1 Orthostatic hypotension; R53.83 Other fatigue; I31.9 Disease of pericardium, unspecified
CPT/HCPCS: 70450; 72052; 93306

== ENCOUNTER → 2024-08-04 08:00 | Outpatient (CLI) | payer MEDICARE, SELFPAY | LOC: SL 08-08 06:42 | PROVIDERS: PCP Nurse Practitioner Family; Visit Provider Specialist | DX: G47.33 Obstructive sleep apnea (adult) (pediatric); G47.36 Sleep related hypoventilation in conditions classified elsewhere | CPT/HCPCS: G0399 ==

== ENCOUNTER 2024-10-03 14:19 | Outpatient (CLI) | payer MEDICARE, SELFPAY ==
[2024-10-03 14:43] LABS: Basophils # 0.1 K/mm3 (0-0.2); Basophils % 0.8 % (0.1-2.0); Eosinophils # 0.1 K/mm3 (0.0-0.4); Eosinophils % 1.3 % (0.1-12.0); Hematocrit 40.3 % (37.0-47.0); Hemoglobin 14.2 g/dL (12.2-16.2); Lymphocytes # 1.6 K/mm3 (0.7-4.5); Lymphocytes % 25.5 % (10-50); Mean Corpuscular HGB Conc 35.2 g/dL (31.8-35.4); Mean Corpuscular Hemoglobin 33.4 pg (27.0-31.2); Mean Corpuscular Volume 94.8 fl (81-99); Mean Platelet Volume 7.8 fl (7.4-10.4); Monocytes # 0.3 K/mm3 (0.1-1.0); Monocytes % 5.4 % (1.7-9.3); Neutrophils # 4.1 K/mm3 (1.8-7.8); Neutrophils % 67.1 % (37.0-80.0); Platelet Count 303 K/mm3 (142-424); Red Blood Count 4.25 M/mm3 (4.20-5.40); Red Cell Distribution Width 14.2 % (11.5-17.5); White Blood Count 6.1 K/mm3 (4.8-10.8)
[2024-10-03 15:22] LABS: Triiodothryronine (T3) Uptake 32 % (23.5-40.5)
[2024-10-03 15:23] LABS: Free Thyroxine Index 2.4 ug/dL (5.93-13.13); T4 (Thyroxine) 7.6 ug/dl (5.53-11.0)
[2024-10-03 15:30] LABS: Alanine Aminotransferase 16 U/L (12-78); Albumin Level 3.3 g/dl (3.5-5.0); Alkaline Phosphatase 74 U/L (38-126); Anion Gap 3.3 mEq/L (5-15); Aspartate Amino Transferase 23 U/L (14-36); Bilirubin,Direct 0.2 mg/dl (0.0-0.4); Bilirubin,Indirect 0.5 mg/dL (0.0-0.9); Bilirubin,Total 0.7 mg/dl (0.2-1.3); Bilirubin,Unconjugated 0.5 mg/dL (0.0-1.1); Blood Urea Nitrogen 13 mg/dl (7-17); Calcium 9.8 mg/dl (8.4-10.2); Carbon Dioxide 32 mmol/L (22.0-30.0); Chloride 105 mmol/L (98-107); Chol/HDL Ratio 2.2 (1-3.5); Cholesterol 120 mg/dl (140-200); Estimated Glomerular Filt Rate 60 ml/min (>60); GFR (African American) 72 ML/MIN (>60); Glucose 76 mg/dl (74-100); HDL Cholesterol 54 mg/dl (40-60); Magnesium 1.9 mg/dl (1.6-2.3); Potassium 3.3 mmoL/L (3.5-5.1); Sodium 137 mmol/L (136-145); Total Protein,Serum 5.7 g/dl (6.3-8.2); Triglycerides 102 mg/dl (30-150); VLDL Cholesterol 20 mg/dL (0-40)
[2024-10-03 15:36] LABS: Thyroid Stimulating Hormone 1.58 uIU/mL (0.465-4.68)
[2024-10-03 15:41] LABS: Direct LDL Cholesterol 36.92 mg/dL (100-129); Intact Parathyroid Hormone 143.2 pg/mL (7.5-53.5)
[2024-10-04 10:55] LABS: 25-OH Vitamin D, Total 31.6 ng/mL (30-100)
[2024-10-05 11:15] LABS: Thyroid Peroxidase Antibodies 16 IU/mL (0-34)
== END 2024-10-03 23:59 | disposition home or self-care (01) ==
LOC: LAB 14:21
PROVIDERS: PCP Nurse Practitioner Family; Visit Provider Nurse Practitioner
DX: E55.9 Vitamin D deficiency, unspecified (principal); R53.83 Other fatigue; I51.89 Other ill-defined heart diseases; I25.10 Atherosclerotic heart disease of native coronary artery without angina pectoris; E78.2 Mixed hyperlipidemia; I10 Essential (primary) hypertension; E21.3 Hyperparathyroidism, unspecified
CPT/HCPCS: 36415; 80048; 80061; 80076; 82306; 83735; 83970; 84436; 84443; 84479; 85025; 86376

== ENCOUNTER 2024-10-04 09:05 | Outpatient (POV) | payer MEDICARE, SELFPAY | END 2024-10-04 23:59 | disposition home or self-care (01) | LOC: SC 09:06 | PROVIDERS: PCP Nurse Practitioner Family; Visit Provider Specialist/Technologist | DX: Z00.00 Encounter for general adult medical examination without abnormal findings (principal) ==

== ENCOUNTER 2024-10-11 10:32 | Outpatient (CLI) | payer MEDICARE, SELFPAY ==
--- NOTE | 2024-10-11 10:32 | US_ITS ---
FINAL REPORT CLINICAL HISTORY: hyperparathyroidism COMPARISON: None FINDINGS: Sonographic images of the thyroid gland were obtained. The right thyroid lobe measures 57 mm. in length. The left thyroid lobe measures 48 mm. in length. The thyroid isthmus measures 3 mm. The echogenicity is normal. The thyroid gland is slightly enlarged bilaterally. Several nodules are identified bilaterally. Right 10 x 9 x 6 mm solid hypoechoic TR 4 nodule. Left 21 x 15 x 12 mm solid isoechoic TR 3 nodule. Other smaller nodules are also noted. IMPRESSION: Several bilateral thyroid nodules as above. 6-12 month follow-up ultrasound recommended per TI-RADS criteria. Reviewed, Interpreted and Dictated by Umesh Mckeon III, MD Transcribed by Delia Brown Authenticated and [facility]
== END 2024-10-11 23:59 | disposition home or self-care (01) ==
LOC: RAD 10:32
PROVIDERS: PCP Nurse Practitioner Family; Visit Provider Nurse Practitioner Family
DX: E21.3 Hyperparathyroidism, unspecified (principal); H81.13 Benign paroxysmal vertigo, bilateral; E55.9 Vitamin D deficiency, unspecified
CPT/HCPCS: 76536

== ENCOUNTER 2024-10-13 13:13 | Outpatient (CLI) | payer MEDICARE, SELFPAY ==
[2024-10-13 13:33] LABS: Anion Gap 10.7 mEq/L (5-15); Blood Urea Nitrogen 16 mg/dl (7-17); Calcium 10.4 mg/dl (8.4-10.2); Carbon Dioxide 28 mmol/L (22.0-30.0); Chloride 106 mmol/L (98-107); Estimated Glomerular Filt Rate 60 ml/min (>60); GFR (African American) 72 ML/MIN (>60); Glucose 83 mg/dl (74-100); Iron 96 ug/dL (37-170); Potassium 4.7 mmoL/L (3.5-5.1); Sodium 140 mmol/L (136-145)
[2024-10-13 13:43] LABS: Total Iron Binding Capacity 312 ug/dL (265-497)
[2024-10-13 14:08] LABS: Ferritin 51.1 ng/ml (11.1-264)
== END 2024-10-13 23:59 | disposition home or self-care (01) ==
LOC: LAB.DROPOF 13:13
PROVIDERS: PCP Nurse Practitioner Family; Visit Provider Nurse Practitioner Family
DX: E87.6 Hypokalemia (principal); R42 Dizziness and giddiness; R53.83 Other fatigue; D64.9 Anemia, unspecified
CPT/HCPCS: 80048; 82728; 83540; 83550

== ENCOUNTER 2024-11-07 08:20 | Outpatient (CLI) | payer MEDICARE, SELFPAY ==
--- NOTE | 2024-11-07 08:20 | NM_ITS ---
FINAL REPORT CLINICAL HISTORY: thyroid nodules, hyperparathyroid 8:30AM 21.0 MCI TC SESTAMIBI FINDINGS: NM PARATHYROID SCAN 21 mCi Technetium Sestamibi was administered. Planar imaging was performed early and two-hour delayed of the neck and upper thorax. Early imaging shows physiologic uptake within the upper neck involving the salivary glands and lower neck involving the thyroid gland. On delayed imaging there is no abnormal retained activity in the lower neck or mediastinum to localize parathyroid adenoma. IMPRESSION: No scintigraphic evidence of parathyroid adenoma. Reviewed, Interpreted and Dictated by Umesh Mckeon III, MD Transcribed by Petra Negron Authenticated and [facility]
[2024-11-07] MEDS: SODIUM CHLORIDE 0.9% 10ML SYR (RAD ONLY) 10 ML IV (08:58)
[2024-11-07] MEDS: ISO TC99M (SESTAMIBI);1 DOSE VIAL IV (08:59)
== END 2024-11-07 23:59 | disposition home or self-care (01) ==
LOC: RAD 08:20
PROVIDERS: PCP Nurse Practitioner Family; Visit Provider Nurse Practitioner Family
DX: E21.3 Hyperparathyroidism, unspecified (principal); E04.2 Nontoxic multinodular goiter
CPT/HCPCS: 78071; A9500

== ENCOUNTER 2025-04-24 08:57 | Outpatient (CLI) | payer MEDICARE, SELFPAY ==
--- OUTSIDE RECORDS SUMMARY | 2025-04-25 10:30 | XMS_ITS | Data Portability ---
Author Organization [facility] Clini cornelio [facility] [place] [facility] Address [address] [place] [address] Care Team Providers Care Microsoft Exchange Architect Name Role Phone ESPERANZA PAREDES Dermatopathologist [phone] MOUSTAPHA BURDICK Primary Care Provider Assessment No assessment recorded. Plan of Treatment Reminders Order Date Submit Date Provider Last Modified By Organization Details Last Modified Time Details Appointments None recorded. Lab surgical pathology study 2024 025 [facility], [address] [place] [address], [phone], 10:11:11 Referral None recorded. Procedures None recorded. Surgeries None recorded. Imaging None recorded. Medication Orders None recorded. Patient TargetsNo targets recorded. Patient InstructionsNo instructions recorded. Reason for Referral None Reported. 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 AJCC: Tis, Nx, Mx B: Left Upper Back - COMPO UND MELAN OCYTI C NEVUS , LENTI GINOU S SOURC E OF SPECI MEN: 1) SKIN, L CHEST 2) SKIN, L UPPER BACK CLINI PATO INFOR MATIO N: A: R/O: BCC. ED&C DONE. B: R/O: MM. Gross Descr iptio n: A: The speci men consi sted of a mcfarland fragm ent which was trise cted and measu red 9 x 6 x 2 mm. All submi tted in one casse tte. B: The speci men consi sted of a mcfarland fragm ent which was trise cted and measu red 9 x 6 x 1 mm. All submi tted in one casse tte. Micro scopi c Descr iptio n: A: The epide rmis displ ays full thick ness kerat inocy te atypi a and disor ganiz ation . Invol vemen t of the dermi s is not noted . B: Melan ocyte s are prese nt as nests and singl e cells along the DE junct ion and under lying dermi s. The lesio n exhib its symme try, circu mscri ption , and matur ation with desce nt. SHANTEL VILLEGAS MD Alma d Out Date: 02/08 10:10 1 Not Available [facility] [address] [place], [phone], 02/08/2025 10:11:10 Result Notes None recorded. Procedures Surgical History Date Name Laterality Status Provider Name and Address Organization Details Recorded Time 5 DAK - Cryo [place] [facility] [place] 16:00:34 5 Blade Biopsy w/ ED&C [place] [facility] [place]/06/2025 16:00:38 5 [place]ade Biopsy [place] [facility] [place]/06/2025 15:59:14 5 Destruction BN Lesions completed [facility] [place] 02/06/2025 16:00:46 Imaging Results None recorded. Procedure Notes None recorded. Medical Equipment None Reported. Allergies Allergen ID Allergen Name Allergen Category Reaction Reaction Severity Criticality Documentation Date Start Date Code Code System Note Provider Name and Address Organization Details Recorded Time 302905 penicilla mine medicatio n Not available Not available Not available 02/06/2025 7975 RxNorm Jorge Toussaint [facility] 15:41:04 Medications Name Sig Start Date Stop Date Status Note LastModified by Organization Details LastModified Time atorvastatin active Not Available Not Available Not Available furosemide active Not Available Not Av ailable Not Available Vitamin D active Not Available Not Rosetta ilable Not Available losartan active Not Available Not Avai lable Not Available tolterodine active Not Available Not A vailable Not Available Align (B.infantis) active Not Available Not Available Not Available Vitals None Recorded Social History Question Answer Notes LastModified by Organizat ion Details LastModified Time Tobacco Smoking Status Never Smoker Jorge Toussaint [facility] 02/06/2025 15:41:21 Sunscreen Use? No [email or web address] Informatio n not available 02/06/2025 Tanning Bed Use No [email or web address] Informati on not available 02/06/2025 What Was The Date Of Your Most Recent Tobacco Screening? 02/06/2025 [email or web address] Information not available 02/06/2025 Has Tobacco Cessation Counseling Been Provided? No Information not available 02/06/2025 Sex: Unknown Functional Status Question Answer Note LastModified by Organizat ion Details LastModified Time Do you use any illicit or recreational drugs? No [email or web address] Information not available 02/06/2025 Do you or have you ever used any other forms of tobacco or nicotine? No Information not available 02/06/2025 What is your level of alcohol consumption? None [email or web address] Information not available 02/06/2025 Mental Status None recorded. Family History Nothing Reported. Medical History No medical history recorded. Gynecological HistoryNo gynecological history recorded. Obstetrics History GPAL:G 0 P 0 0 0 0 Past Encounters Encounter ID Performer Location Encounter Start Date Encounter Closed Date Diagnosis/Indication Diagnosis SNOMED-CT Code Diagnosis ICD10 Code Diagnosis Note [id number] CALI JENKINS [facility] [address] [place] [address] 02/06/2025 15:11:09 02/06/2025 16:20:41 Multiple benign melanocytic nevi 118190029 D22.5 L81.4 D18.01 L82.1 The benign nature of keratoses and lentigines was discussed with the patient. Sun protection with SPF 30 broad spectrum sunscreen and protective gear discussed. Look for physical bassam sunscreens with at least SPF 30 containing zinc oxide or titanium dioxide as active ingredient . Recommend monthly self examinatio ns and yearly full skin examinatio n with a dermatolog y provider. Recommend yearly eye exam. Recommend OTC Vitamin D supplement . Patient instructed to call if any suspicious lesions are noted. Neoplasm o f uncertain behavior of skin [id number] D48.5 The etiology of lesion(s) discussed. Biopsy recommende d. ED&C performed. Will call pt with results or post to portal if benign. Actinic keratosis 007 L57.0 The nature of the diagnosis was explained. Pre-cancer ous.Will treat with LN2.F/u if treated lesions persist. Seborrheic keratosis 394 [id number] L82.1 R52 Benign appearing lesions.Si nce bothersome and painful, will treat with LN2.Lesion s treated today may persist.F/ u if treated lesions persist. Family his tory of malignant melanoma [id number] Z80.8 Family hx of MM in 1st degree relative (son)Rec at least annual FBSE given incr risk for 1st degree relatives Health Concerns Section Related Observation LastModified by Organization Detai ls LastModified Time None Recorded Concern Status LastModified by Organization Details LastModified Time None Recorded Advance Directives Directive None Recorded Payers Insurance Date Sequence Insurance Name Policy Number Policy Bonilla Covered Member ID Bonilla Member ID Guarantor Name 02/06/2025 1 [place] Cristel Paul [id number] Cristel Paul 02/06/2025 2 [employer] (MEDICARE SUPPLEMENT) Rohit Paul [id number] Cristel Paul OBGyn Episode No OBEpisode recorded.
== END 2025-04-24 23:59 | disposition home or self-care (01) ==
LOC: LAB.DROPOF 04-25 10:28
PROVIDERS: PCP Nurse Practitioner Family; Visit Provider Student in an Organized Health Care Education/Training Program
DX: N39.0 Urinary tract infection, site not specified (principal)
CPT/HCPCS: 87086

== ENCOUNTER 2025-04-26 14:52 | Outpatient (RCR) | payer MEDICARE, SELFPAY | END 2025-04-26 23:59 | disposition home or self-care (01) | LOC: PT 14:52 | PROVIDERS: Visit Provider Otolaryngology | DX: R26.89 Other abnormalities of gait and mobility (principal) | CPT/HCPCS: 97110; 97163 ==

== ENCOUNTER 2025-05-12 10:07 | Outpatient (RCR) | payer MEDICARE, SELFPAY ==
--- NOTE | 2025-05-12 11:46 | HMH.PTOPEV ---
PT Outpatient Evaluation Rehab PT Outpatient Evaluation Start: 05/12/25 11:11 Freq: Status: Active Protocol: Document 05/12/25 11:19 PHORNE (Rec: 05/12/25 11:46 PHORNE [id number]) E-signed By Dilshad Dalton, PT Outpatient Therapy Subjective History Subjective History This is the initial PT eval for vertigo symptoms of Cristel Blackwood, 84 yowf who presents with c/o intermittent vertigo without specific positions. She c/ o room spinning sensation, but is unable to give a specific time or reason for these sensations. She reports taking Meclizine about once or twice a week because my stomach gets upset but she doesn't know why that occurs and is not associated with dizziness or vertigo. She reports hx of pericardial effusion, Vertigo, seasonal allergies, HTN, L TKA with revision, and B LE neuropathy of unknown cause. Full PMH is below : Medical History Pericardial effusion BPPV (benign paroxysmal positional vertigo) SNHL (sensorineural hearing loss) moderately sloping SNHL >2KHZ bilaterally, imbalance per Audiometric Right serous otitis media Edema of both lower extremities Abnormal electrocardiogram [ECG] [EKG] Esophageal spasm Chest pain Osteochondral lesion Calcaneal spur of right foot Calcaneal spur of left foot Callus of foot Vertigo Allergic rhinitis Abdominal bloating Arthritis OAB (overactive bladder) DDD (degenerative disc disease) Hematuria Vaginal burning Bacterial vaginosis PVCs (premature ventricular contractions) Atypical angina Pericardial effusion Chest pain Dyspnea Electrocardiogram abnormal Surgical History Hx of right heart catheterization Hx of tubal ligation Hx of shoulder surgery Hx of cholecystectomy Hx of total knee replacement Hx of general house worker Complaint Other Symptom Type Other Symptoms Relieved By Rest/Positioning Prior Functional Balance Limitations Current Functional Balance Limitations Balance Eval Hx of Falls Hx Falls Yes Number in last 6 1 months Gait/Posture Asssessment General Gait Shuffling Step,Decrease Stride Lngth (R),Decrease Observation Stride Lngth (L) Body Alignment Rigid Posture Nystagmus Nystagmus Presence None Oculomotor Gaze Oculomotor Gaze Nml: Vergence Smooth Pursuit Saccades Cover/Uncover Cross Cover Abn: VOR Cancellation Dynamic Gait Index Test Protocol Gait Level Surface Mild Impairment Query Text: Instructions: Walk at your normal speed from here to the next eli (20'). Grading: Eli the lowest category that applies. Change in Gait Speed Moderate Impairment Query Text: Instructions: Begin walking at your normal pace (for 5') , when I tell you go , walk as fast as you can (for 5'). When I tell you slow , walk as slowly as you can ( for 5'). Grading: Eli the lowest category that applies. Gait with Horizontal Moderate Impairment Head Turns Query Text: Instructions: Begin walking at your normal pace. When I tell you to look right , keep walking straight, but turn you head to the right. Keep looking to the right unit I tell you look left , then keep walking straight and turn your head to the left. Keep your head to the left until I tell you look straight , then keep walking straight, but return you head to the center. Grading: Eli the lowest category that applies. Gait with Vertical Moderate Impairment Head Turns Query Text: Instructions: Begin walking at your normal pace. When I tell you to look up , keep walking staight, but tip your head up. Keep looking up until I tell you to look down , then keep walking straight and tip your head down. Keep your head down until I tell you look straight , then keep walking straight, but return your head to the center. Grading: Eli the lowest category that applies. Gait and Pivot Turn Moderate Impairment Query Text: Instructions: Begin walking at your normal pace. When I tell you turn and stop , turn as quickly as you can to face the opposite direction and stop. Grading: Eli the lowest category that applies. Step Over Obstacle Mild Impairment Query Text: Instructions: Begin walking at your normal speed. When you come to the shoebox, step over it, not around it and keep walking. Grading: Eli the lowest category that applies. Step Around Normal Obstacles Query Text: Instructions: Begin walking at normal speed. When you come to the first cone (about 6' away) , walk around the right side of it. When you come to the second cone (6' past first cone), walk around it to the left. Grading: Eli the lowest category that applies. Steps Moderate Impairment Query Text: Instructions: Walk up these stairs as you would at home. At the top, turn around and walk down . Grading: Eli the lowest category that applies. Scoring Dynamic Gait Index 12 Score Miscellaneous Dx PT Eval Objective Objective TU sec DGI: 11/22 Evan-Hallpike performed and positive for symptoms of vertigo to the L side, but no nystagmus was noted. (pt with difficulty holding eyes open due to c/o vertigo symptoms) Horizontal roll test performed without symptoms or nystagmus noted. Outpatient Therapy Assessment Impairments Problems/ Impaired Walking,Impaired Standing,Impaired Household Impairmments Care,Impaired Stair Climbing,Impaired Balance,Impaired Self Care/Self Management Prognosis Rehab Potential Good Comment Skilled therapy is indicated to reduce symptoms of vertigo to improve pt ability to perform all ADLs. Clinical Impression Consistent with Yes Diagnosis Short Term Goals Number of Weeks 2 Improve Self Care/ Yes: Minimal c/o vertigo with all activity. Self Management Case Checker Goals Number of Weeks 4 Improve Self Care/ Yes: No c/o vertigo with all activity. Self Management Outpatient Therapy Plan of Care Treatment Plan May Include Neuromuscular Re- Yes: Vertigo treatment with canalith repositioning education ADL/Self Care Yes Education Eval/Re-Eval Yes Frequency Times per week 1 Duration Number of Weeks 4 Addendums This patient is a No candidate for social or vocational rehab ? Patient/Guardian Yes verbally acknowledges understanding of treatment program and consents to further treatment? Patient/Guardian Yes verbally acknowledges understanding of diagnosis, prognosis and goals for treatment? Eval Complexity PT Charges 23630 - Moderate Complexity Shoulder/Elbow Eval Shoulder Objective Measurements Elbow Objective Measurements PHYSICIAN CERTIFICATION: I certify the specified therapy services for Cristel Blackwood are required, authorized, and reviewed every 30 days.
== END 2025-05-12 23:59 | disposition home or self-care (01) ==
LOC: PT 10:07
PROVIDERS: Visit Provider Nurse Practitioner Family
DX: R42 Dizziness and giddiness (principal)
CPT/HCPCS: 95992; 97162

== ENCOUNTER 2025-05-25 09:00 | Outpatient (RCR) | payer MEDICARE, SELFPAY | END 2025-05-25 23:59 | disposition home or self-care (01) | LOC: PT 09:00 | PROVIDERS: Visit Provider Otolaryngology | DX: R26.89 Other abnormalities of gait and mobility (principal) | CPT/HCPCS: 97110; 97112; 97530 ==

== ENCOUNTER 2025-06-19 09:00 | Outpatient (RCR) | payer MEDICARE, SELFPAY ==
--- NOTE | 2025-06-07 11:11 | HMH.RHREAS ---
Rehab Reassessment Rehab OP Re-assessment Start: 05/30/25 15:00 Freq: Status: Active Protocol: Document 06/06/25 15:00 THI (Rec: 06/06/25 16:15 THI [id number]) E-signed By Camryn Snyder PT Dynamic Gait Index Test Protocol Gait Level Surface Mild Impairment Query Text: Instructions: Walk at your normal speed from here to the next eli (20'). Grading: Eli the lowest category that applies. Change in Gait Speed Moderate Impairment Query Text: Instructions: Begin walking at your normal pace (for 5') , when I tell you go , walk as fast as you can (for 5'). When I tell you slow , walk as slowly as you can ( for 5'). Grading: Eli the lowest category that applies. Gait with Horizontal Moderate Impairment Head Turns Query Text: Instructions: Begin walking at your normal pace. When I tell you to look right , keep walking straight, but turn you head to the right. Keep looking to the right unit I tell you look left , then keep walking straight and turn your head to the left. Keep your head to the left until I tell you look straight , then keep walking straight, but return you head to the center. Grading: Eli the lowest category that applies. Gait with Vertical Moderate Impairment Head Turns Query Text: Instructions: Begin walking at your normal pace. When I tell you to look up , keep walking staight, but tip your head up. Keep looking up until I tell you to look down , then keep walking straight and tip your head down. Keep your head down until I tell you look straight , then keep walking straight, but return your head to the center. Grading: Eli the lowest category that applies. Gait and Pivot Turn Mild Impairment Query Text: Instructions: Begin walking at your normal pace. When I tell you turn and stop , turn as quickly as you can to face the opposite direction and stop. Grading: Eli the lowest category that applies. Step Over Obstacle Mild Impairment Query Text: Instructions: Begin walking at your normal speed. When you come to the shoebox, step over it, not around it and keep walking. Grading: Eli the lowest category that applies. Step Around Mild Impairment Obstacles Query Text: Instructions: Begin walking at normal speed. When you come to the first cone (about 6' away) , walk around the right side of it. When you come to the second cone (6' past first cone), walk around it to the left. Grading: Eli the lowest category that applies. Steps Moderate Impairment Query Text: Instructions: Walk up these stairs as you would at home. At the top, turn around and walk down . Grading: Eli the lowest category that applies. Scoring Dynamic Gait Index 12 Score Rehab Re-assessment Subjective Subjective Pt reports she feels 30% improved since IE. Minimal-no HEP compliance reported. Objective Objective Notes TU seconds no AD 5xSTS: 12 seconds no AD DGI: 12 Assessment Progress Assessment Slower Than Expected Assessment Notes This is a reassessment for Cristel Blackwood who presents to PT for c/o balance impairments. Since IE, pt has been seen for 8 treatment visits that have consisted of theract and therapeutic exercises focusing on strength and balance. Pt with good attendance to scheduled PT visits. Pt still presents with impaired balance and gait. Pt demo'd multiple LOB during DGI and is still rated a fall risk. Pt did demo improvements in TUG and 5xSTS test times. Pt would continue to benefit from skilled outpatient physical therapy to address remaining deficits and achieve LTGs. Patient goals met STG: In 4 weeks, pt will: 1) Improve DGI by 2 points to improve safety with ambulation: Not met 2) Perform TUG in 14 seconds: Not met 3) Improve BLE strength by 1/5 MMT grade: Not met 4) application support engineer tandem stance for 8 seconds without UE support: MET 5) Report she feels at least 40% improved with her balance deficits: Not met LTG: In 8 weeks, pt will: 1) Improve DGI to score of 16 points to improve safety with ambulation: Not met 2) Perform TUG in 12 seconds or less: Not met 3) Improve BLE strength to 5/5 globally to maximize daily functioning: Not met 4) application support engineer tandem stance for 15 seconds with min-no UE support: Not met 5) Report she feels at least 80% improved with her balance deficits: Not met 6) Ambulate 10' on uneven surface without LOB: Not met 7) Pass all Romberg sections : Not met Plan Plan Continue current POC Frequency of Therapy 2-3 times weekly Duration of therapy 5-6 weeks Time and Billing Re-Eval Time 7 Re-Eval Billing 0 Units Charge for PT No reassessment? PHYSICIAN CERTIFICATION: I certify the specified therapy services for Cristel Theresa Kelli Jaison are required, authorized, and reviewed every 30 days.
== END 2025-06-19 23:59 | disposition home or self-care (01) ==
LOC: PT 09:00
PROVIDERS: Visit Provider Otolaryngology
DX: R26.89 Other abnormalities of gait and mobility (principal)
CPT/HCPCS: 97110; 97112; 97530

== ENCOUNTER 2025-07-06 12:34 | Outpatient (CLI) | payer MEDICARE, SELFPAY ==
--- OUTSIDE RECORDS SUMMARY | 2025-06-13 10:45 | XMS_ITS | Encounter Summary ---
Author Organization [facility] yste Address [address] [place] [address] Care Team Providers Care Director Of Athletics Name Role Phone Provider, No Known Primary Care Provider Unavail able Reason for Referral * Diagnostic Imaging (Routine) - Pending Review Specialty Diagnoses / Procedures Referred By Contac t Referred To Contact Diagnoses Multiple thyroid nodules Procedures US Thyroid Haydee Fermin MD [facility] [address] [address] Phone: tel: fax: [facility] [address] [place] [address] Phone: tel: fax: Referral ID Status Reason Start Date Expiration Date V isits Requested Visits Authorized Pending Review 06/13/2025 09/12/2026 1 1 Reason for Visit * Reason Comments Abnormal Lab PTH Thyroid Problem Encounter Details Date Type Department Care Team (Late st Contact Info) Description 06/13/2025 10:45 AM EDT Office Visit [facility] [address] [address] Haydee Fermin MD [address] [id number] High serum parathyroid hormone (PTH) (Primary Dx); Vitamin D deficiency; Multiple thyroid nodules Social History Tobacco Use Types Packs/Day Years Used Date Smoking Tobacco: Never Smokeless Tobacco: Never Alcohol Use Standard Drinks/Week Comments Never 0 (1 standard drink = 0.6 oz pur e alcohol) AUDIT-C Answer Date Recorded Q1: How often do you have a drink containing alc ohol? Never 06/27/2021 Average Number of Drinks Not on file 021 Frequency of Binge Drinking Not on file 05/31 Comments No Sex and Gender Information Value Date Recorded Sex Assigned at Not on file Legal Sex Female 9:14 AM EDT Gender Identity Not on file Sexual Orientation Not on file documented as of this encounter Last Filed Vital Signs Vital Sign Reading Time Taken Comments Blood Pressure 128/70 06/13/2025 10:11 AM EDT Pulse 81 06/13/2025 10:11 AM EDT Temperature - - Respiratory Rate - - Oxygen Saturation 95% 06/13/2025 10:11 AM EDT Inhaled Oxygen Concentration - - Weight 75.6 kg (166 lb 9.6 oz) 06/13/2025 10:11 AM EDT Height 162.6 cm (5' 4 ) 06/13/2025 10:11 AM EDT Body Mass Index 28.6 06/13/2025 10:11 AM EDT documented in this encounter Progress Notes * Haydee Fermin MD - 06/13/2025 10:45 AM EDT Chief Complaint Patient presents with Abnormal Lab HPI Cristel Blackwood is a 84 y.o. female had concerns including Abnormal Lab. Patient reports no significant health changes in the interim since last visit. She is going to physical therapy for balance. She reports no change to fatigue and wonders if this is age-related. She continues on vitamin D though she reports she ran out of her [id number] supplement approximately 1 week ago, she believes this is 1000 international units daily. The following portions of the patient's history were reviewed and updated as appropriate: allergies, current medications, and past social history. Review of Systems Constitutional: Positive for fatigue. BP 128/70 (BP Location: Left arm, Patient Position: Sitting, Cuff Size: Adult) Pulse 81 Ht 162.6 cm (64 ) Wt 75.6 kg (166 lb 9.6 oz) SpO2 95% BMI 28.60 kg/m?? Physical Exam Constitutional: well developed; well nourished no acute distress ENT/Thyroid: not examined Eyes: Conjunctiva: clear Respiratory: breathing is unlabored clear to auscultation bilaterally Cardiovascular: regular rate and rhythm Chest: Not performed. Abdomen: Not performed. : Not performed. Musculoskeletal: Not performed Skin: not performed. Neuro: mental status, speech normal Psych: mood and affect are within normal limits Labs/Imaging Latest Reference Range & Units 03/14/25 09:34 Sodium 136 - 145 mmol/L 142 Potassium 3.5 - 5.2 mmol/L 3.4 (L) Chloride 98 - 107 mmol/L 103 CO2 22.0 - 29.0 mmol/L 27.3 Anion Gap 5.0 - 15.0 mmol/L 11.7 BUN 8 - 23 mg/dL 11 Creatinine 0.57 - 1.00 mg/dL 0.94 BUN/Creatinine Ratio 7.0 - 25.0 11.7 eGFR >60.0 mL/min/1.73 59.2 (L) Glucose 65 - 99 mg/dL 85 Calcium 8.6 - 10.5 mg/dL 10.3 Phosphorus 2.5 - 4.5 mg/dL 2.9 Albumin 3.5 - 5.2 g/dL 3.7 PTH Intact (Serial Monitor) 15.0 - 65.0 pg/mL 74.5 (H) TSH Baseline 0.270 - 4.200 uIU/mL 1.960 1,25-Dihydroxy, Vitamin D 24.8 - 81.5 pg/mL 52.6 25 Hydroxy, Vitamin D 30.0 - 100.0 ng/ml 56.7 (L): Data is abnormally low (H): Data is abnormally high Diagnoses and all orders for this visit: 1. High serum parathyroid hormone (PTH) (Primary) - PTH, Intact; Future - Renal Function Panel; Future 2. Vitamin D deficiency - Calcitriol (1,25 di-OH Vitamin D); Future - Vitamin D,25-Hydroxy; Future Most recent PTH was significantly improved from prior and only mildly abnormal, 74.5. Concurrent serum calcium and vitamin D were normal. Patient generally takes vitamin D 1000 international units daily. She did have prior imaging negative for parathyroid adenoma. Discussed surgical criteria for primary hyperparathyroidism. In the setting of normal calcium, would likely proceed with intermittent monitoring. We also discussed ability to treat calcium elevation medically the patient is aware thisis not curative. Plan to repeat labs today and determine next steps. 3. Multiple thyroid nodules - US Thyroid; Future Thyroid ultrasound was completed in September 2024. Nodules did not meet criteria for imaging follow-up. Repeat ultrasound was ordered, patient requests to complete this at [facility].Further recommendations pending results. Return in about 6 months (around 12/14/2025) for Next scheduled follow up. The patient was instructed to contact the clinic with any interval questions or concerns. Electronically signed by: Haydee Fermin MD Product Architect Dictated Utilizing [employer] Dictation documented in this encounter Plan of Treatment Scheduled Orders Name Type Priority Associated Diagnoses Orde r Schedule US Thyroid Imaging Routine Multiple thyroid nodules Expected: 09/13/2026, Expires: 09/13/2026 documented as of this encounter Procedures Procedure Name Priority Date/Time Associated Diagnosis Comments CALCITRIOL (1,25 DI-OH VITAMIN D) Routine 06/13/2025 10:37 AM EDT Vitamin D deficiency VITAMIN D,25-HYDROXY Routine 06/13/2025 10:37 AM EDT Vitamin D deficiency PTH, INTACT Routine 06/13/2025 10:37 AM EDT High serum parathyroid hormone (PTH) RENAL FUNCTION PANEL Routine 06/13/2025 10:37 AM EDT High serum parathyroid hormone (PTH) documented in this encounter Results * Vitamin D,25-Hydroxy (06/13/2025 10:37 AM EDT) 25 Hydroxy, Vitamin D 52.7 30.0 - 100.0 ng/ml 06/13/2025 3:05 PM EDT [facility] Blood Venipuncture / Unknown 06/13/2025 10:37 AM EDT 06/13/2025 10:37 AM EDT Narrative [facility] - 06/13/2025 3:05 PM EDT Reference Range for Total Vitamin D 25(OH) Deficiency <20.0 ng/mL Insufficiency 21-29 ng/mL Sufficiency 30-100 ng/mL Toxicity >100 ng/ml Haydee Fermin MD LAB BLOOD ORDERABLES Final Resu lt [facility]
[address] [place] [address], * Calcitriol (1,25 di-OH Vitamin D) (06/13/2025 10:37 AM EDT) 1,25-Dihydroxy, Vitamin D 55.6 24.8 - 81.5 pg/mL 06/16/2025 1:10 PM EDT [facility] Blood Venipuncture / Unknown 06/13/2025 10:37 AM EDT 06/13/2025 10:37 AM EDT Narrative [facility] - 06/16/2025 1:10 PM EDT Performed at: [address] [place] [id number] Hand Funnel Coater: Sharda Villareal MD, Phone: [phone] Haydee Fermin MD LAB BLOOD ORDERABLES Final Resu lt [facility] [address] [place] [address], [place] [phone] * (ABNORMAL) Renal Function Panel (06/13/2025 10:37 AM EDT) Glucose 97 65 - 99 mg/dL 06/13/2025 2:52 PM EDT [facility] BUN 11.0 8.0 - 23.0 mg/dL 06/13/2025 2:52 PM EDT [facility] Creatinine 0.88 0.57 - 1.00 mg/dL 06/13/2025 2:52 PM EDT [facility] Sodium 141 136 - 145 mmol/L 06/13/2025 2:52 PM EDT [facility] Potassium 3.8 3.5 - 5.2 mmol/L 06/13/2025 2:52 PM EDT [facility] Chloride 107 98 - 107 mmol/L 06/13/2025 2:52 PM T [facility] CO2 26.9 22.0 - 29.0 mmol/L 06/13/2025 2:52 PM EDT [facility] Calcium 10.4 8.6 - 10.5 mg/dL 06/13/2025 2:52 PM T [facility] Albumin 3.8 3.5 - 5.2 g/dL 06/13/2025 2:52 PM [facility] Phosphorus 2.2(L) 2.5 - 4.5 mg/dL 06/13/2025 2:52 PM [facility] Anion Gap 7.1 5.0 - 15.0 mmol/L 06/13/2025 2:52 PM T [facility] BUN/Creatinine Ratio 12.5 7.0 - 25.0 06/13/2025 2:52 PM [facility] eGFR 64.1 >60.0 mL/min/1.7 3 06/13/2025 2:52 PM [facility] Blood Venipuncture / Unknown 06/13/2025 10:37 AM EDT 06/13/2025 10:37 AM EDT [facility] - 06/13/2025 2:52 PM EDT GFR Categories in Chronic Kidney Disease (CKD) GFR Category GFR (mL/min/1.73) Interpretation G1 90 or greater Normal or high (1) G2 60-89 Mild decrease (1) G3a 45-59 Mild to moderate decrease G3b 30-44 Moderate to severe decrease G4 15-29 Severe decrease G5 14 or less Kidney failure (1)In the absence of evidence of kidney disease, neither GFR category G1 or G2 fulfill the criteria for CKD. eGFR calculation 2020 CKD-EPI creatinine equation, which does not include race as a factor us Haydee L Minch MD LAB BLOOD ORDERABLES Final Resu lt Performing Organization Address [facility]/ZIP Co de Phone Number [facility]
[address] [place] [address], [place] [phone] * (ABNORMAL) PTH, Intact (06/13/2025 10:37 AM EDT) PTH, Intact 106.0(H) 15.0 - 65.0 pg/mL 06/13/2025 3:01 PM EDT [facility] Blood Structure of left upper limb / Unknown Venipuncture / Unknown 06/13/2025 10:37 AM EDT 06/13/2025 10:37 AM EDT Narrative [facility] - 06/13/2025 3:01 PM EDT Results may be falsely decreased if patient taking Biotin. Haydee Fermin MD LAB BLOOD ORDERABLES Final Resu lt Performing Organization Address [facility] Co de Phone Number [facility]
[address] [place] [address], [place] [phone] documented in this encounter Visit Diagnoses Diagnosis High serum parathyroid hormone (PTH)- Primary Vitamin D deficiency Multiple thyroid nodules Nontoxic multinodular goiter documented in this encounter Care Teams Director Of Athletics Relationship Specialty Start Date End Date Provider, [place] [address] PCP - General 03/14/25 documented as of this encounter
--- NOTE | 2025-07-06 12:36 | US_ITS ---
FINAL REPORT TECHNIQUE: Real-time grayscale and color ultrasound of the thyroid was performed. CLINICAL HISTORY: MULTIPLE THYROID NODULES COMPARISON: None FINDINGS: The thyroid gland measures 44 x 18 x 22 mm on the right and 45 x 20 x 24 mm on the left. The isthmus measures 3 mm. The parenchyma is unremarkable . Nodules: In the right lower pole is a 10 mm hypoechoic ovoid solid TR 4 nodule. There are other subcentimeter nodules scattered in the right lobe. Left dominant nodule is isoechoic measuring 17 x 12 mm, TR 3. IMPRESSION: 10 mm TR 4 nodule in the right and 17 mm TR 3 nodule in the left. Follow-up in 1 year per TI-RADS criteria. Reviewed, Interpreted and Dictated by Colin Mcgregor MD Transcribed by Delia Brown Authenticated and [facility]
--- OUTSIDE RECORDS SUMMARY | 2025-07-06 12:37 | XMS_ITS | Encounter Summary ---
Author Organization [facility] ystem Address [address] [place] [address] Care Team Providers Care Rotoprinter Name Role Phone Provider, No Known Primary Care Provider Unavail able Encounter Details Date Type Department Care Team (Late st Contact Info) Description 03/14/2025 Results Follow-Up [facility] [address] [facility] [address] [place] [address] Haydee Fermin MD [address] [facility] [address] [place] [id number] Social History Tobacco Use Types Packs/Day Years [...] on file documented as of this encounter Plan of Treatment Not on file documented as of this encounter Visit Diagnoses Not on filedocumented in this encounter Care Teams Rotoprinter Relationship Specialty Start Date End Date Provider, [place] [address] PCP - General 03/14/25 documented as of this encounter
--- OUTSIDE RECORDS SUMMARY | 2025-07-06 12:37 | XMS_ITS | Encounter Summary ---
Author Organization [facility] ystem Address [address] [place] [address] Care Team Providers Care Client Technical Specialist Name Role Phone Provider, No Known Primary Care Provider Unavail able Encounter Details Date Type Department Care Team (Latest Contact Info) Description 06/13/2025 Travel Social History Tobacco Use Types Packs/Day Years [...] on filedocumented in this encounter Care Teams Client Technical Specialist Relationship Specialty Start Date End Date Provider, No Known [facility] [place] [address] PCP - General 03/14/25 documented as of this encounter
--- OUTSIDE RECORDS SUMMARY | 2025-07-06 12:37 | XMS_ITS | Encounter Summary ---
Author Organization [facility] ystem Address [address] [place] [address] Care Team Providers Care Cell Technician Name Role Phone Provider, No Known Primary Care Provider Unavail able Encounter Details Date Type Department Care Team (Late st Contact Info) Description 06/15/2025 Results Follow-Up [facility] [address] [facility] [address] [place] [address] Haydee Fermin MD [address] [facility] [address] [place] [id number] Social History Tobacco Use Types Packs/Day Years [...] on filedocumented in this encounter Care Teams Cell Technician Relationship Specialty Start Date End Date Provider, [place] [address] PCP - General 03/14/25 documented as of this encounter
--- OUTSIDE RECORDS SUMMARY | 2025-07-06 12:37 | XMS_ITS | Clinical Summary ---
Author Organization Healthcare Address [address] [place] [address] Care Team Providers Care Complaint Investigator Name Role Phone Wally Cherry MD Primary Care Provider + [phone] Darius Kinney MD Unavailable [phone] Allergies Active Allergy Reactions Criticality Noted Date Comments Penicillins Rash Low 05/06/2016 Local rash at injection site Medications furosemide (Lasix) 40 MG tablet Take 40 mg by mouth 1 (one) time each day. 07/11/2022 Active tolterodine LA (Detrol LA) 4 MG 24 hr capsule Take 1 capsule by mouth 1 (one) time each day. 03/25/2023 Active atorvastatin (Lipitor) 40 MG tablet Take 1 tablet by mouth 1 (one) time each day. 03/25/2023 Active losartan (Cozaar) 50 MG tablet Take 1 tablet by mouth 1 (one) time each day. 01/26/2023 Active psyllium (Metamucil) 58.12 % packet Take 1 packet by mouth 1 (one) time each day. Active Bacillus Coagulans-Inuli n (ALIGN PREBIOTIC-PROBI OTIC PO) Take by mouth. Active Active Problems Problem Noted Date Diagnosed Date Obesity (BMI 30-39.9) 04/14/2023 Mild coronary artery disease 04/13/2023 Pericardial effusion 04/13/2023 Premature ventricular contractions 04/13/2023 Hypertension 07/03/2021 Lower back pain 05/03/2021 Arthritis 11/27/2017 Hyperlipidemia 11/27/2017 Interstitial cystitis 11/27/2017 Resolved Problems Problem Noted Date Diagnosed Date Resolved Date Pericardial effusion, acute 11/27/2017 04/13/2023 Immunizations Immunization Administration Dates Next Due Influenza Vaccine, Quadrivalent, Adjuvanted 07/31 Influenza, Unspecified 08/30/2021 Influenza, high-dose, quadrivalent 08/22/2020 Influenza, injectable, quadr ivalent, preservative free 09/12/2022 Influenza, seasonal, injecta ble, preservative free 01/07/2017 Moderna COVID-19 Vaccine (Re d Cap) 12+ years 12/13/2021,02/06/2021,01/09/2021 Pneumococcal Polysaccharide PPV23 09/28/2008 Family History Medical History Relation Name Comments Colon cancer Father Heart attack Father Thyroid cancer Mother Arthritis Other Bone cancer Sister Relation Name Status Comments Father Mother Other Sister Social History Tobacco Use Types Packs/Day Years Used Date Smoking Tobacco: Never Passive Smoke Exposure: Never Smokeless Tobacco: Never Alcohol Use Standard Drinks/Week Comments Never 0 (1 standard drink = 0.6 oz pur e alcohol) AUDIT-C Answer Date Recorded Q1: How often do you have a drink containing alcohol? Never 04/14/2023 Q2: How many drinks containi ng alcohol do you have on a typical day when you are drinking? Patient does not drink Q3: How often do you have si x or more drinks on one occasion? Never 04/14/2023 PHQ-2 Answer Date Recorded Patient Health Questionnaire-2 Score 0 05/04/2023 PHQ-2A Answer Date Recorded Patient Health Questionnaire-2 Score 0 05/04/2023 Comments Unknown Sex and Gender Information Value Date Recorded Sex Assigned at Not on file Legal Sex Female 6:56 PM EDT Gender Identity Not on file Sexual Orientation Not on file Occupation Industry Job Start Date Job End Date retired Not on file Not on file Not on file Last Filed Vital Signs Vital Sign Reading Time Taken Comments Blood Pressure 121/88 05/04/2023 12:04 PM EDT Pulse 74 05/04/2023 12:04 PM EDT Temperature 36.2 C (97.2 F) 05/04/2023 12:04 PM EDT Respiratory Rate 18 04/17/2023 9:45 AM EDT Oxygen Saturation 95% 05/04/2023 12:04 PM EDT Inhaled Oxygen Concentration - - Weight 80.9 kg (178 lb 5.6 oz) 05/04/2023 12:04 PM EDT Height 165.1 cm (5' 5 ) 05/04/2023 12:04 PM EDT Body Mass Index 29.68 05/04/2023 12:04 PM EDT Plan of Treatment Health Maintenance Due Date Last Done Comments [facility]-Bone Density Scan 1940 [facility]-Medicare Annual Wellness (AWV) 1940 [facility]-Infant/Child/Adol SDOH Screenings 1940 [facility]- SDOH Screenings 1956 [facility]-Adult SDOH Screenings 1956 [facility]-DTaP,Tdap,and Td Vaccines (1 - Tdap) 1957 [facility]-Zoster Vaccines (1 of 2) 1988 [facility]-Pneumococcal Vaccine: 50+ Years (2 of 2 - PCV) 09/28/2009 09/28/2008 [facility]-RSV Vaccine: 60+ Years or (1 - 1-dose 75+ series) 2013 [facility]-Depression Screening 05/04/2024 05/04/2023 [id number] Vaccine ( season) 2024 12/13/2021, 02/06/2021, 01/09/2021 [facility]-Influenza Vaccine (#1) 07/31/202509/12, 08/30/2021, 08/14/2021, Additional history exists [facility]-Obesity Intervention Completed 05/04/2023, 03/30 HPV Vaccines Aged Out No longer eligi ble based on patient's age to complete this topic [facility]-HIB Vaccines Aged Out No longer e ligible based on patient's age to complete this topic [facility]-Hepatitis A Vaccines Aged Out No longer eligible based on patient's age to complete this topic [facility]-IPV Vaccines Aged Out No longer e ligible based on patient's age to complete this topic [facility]-Rotavirus Vaccines Aged Out No lo nger eligible based on patient's age to complete this topic [place] [address] [facility] Care Teams Complaint Investigator Relationship Specialty Start Date End Date Wally Cherry MD [address] [place] [address] PCP - General 04/13/23 Darius Kinney MD [address] [facility] [address] [place] [address] Referring Physician Cardiology 04/13/23
--- OUTSIDE RECORDS SUMMARY | 2025-07-06 12:37 | XMS_ITS | Encounter Summary ---
Author Organization Healthcare Address [address] [place] [address] Care Team Providers Care Dumpster Driver Name Role Phone Wally Cherry MD Primary Care Provider + [phone] Darius Kinney MD Unavailable [phone] Encounter Details Date Type Department Care Team (Late st Contact Info) Description 03/16/2023 Orders Only External Location [address] [place] [address] Provider, External Social History Tobacco Use Types Packs/Day Years Used Date Smoking Tobacco: Never Alcohol Use Standard Drinks/Week Comments No 0 (1 standard drink = 0.6 oz pur e alcohol) Comments Unknown Sex and Gender Information Value Date Recorded Sex Assigned at Not on file Legal Sex Female 6:56 PM EDT Gender Identity Not on file Sexual Orientation Not on file documented as of this encounter Plan of Treatment Not on file documented as of this encounter Procedures Procedure Name Priority Date/Time Associated Diagnosis Comments US OUTSIDE IMAGES 03/16/2023 2:07 PM EDT documented in this encounter Results * US OUTSIDE IMAGES (03/16/2023 2:07 PM EDT) Anatomical Region Laterality Modality Ultrasound 03/16/2023 2:07 PM EDT us External Provider IMG US PROCEDURES Final Result documented in this encounter Visit Diagnoses Not on filedocumented in this encounter Care Teams Dumpster Driver Relationship Specialty Start Date End Date Wally Cherry MD [address] [place] [address] PCP - General 04/13/23 Darius Kinney MD [address] [place] [address] Referring Physician Cardiology 04/13/23 documented as of this encounter
--- OUTSIDE RECORDS SUMMARY | 2025-07-06 12:37 | XMS_ITS ---
Laboratory report Created on: June 20, 2025 RADHA PAUL : 1940 Sex: Female Author Name TATIANA QUEEN Organization Unknown PROBLEMS Problems List Code Description E55.9 RESULTS Laboratory Orders Date Order Code Test 2025-06-13 [id number] CALCITRIOL(1,25 DI-OH VIT D) Laboratory Results Date LOINC Test Value Unit Reference Range Interpre tation 2025-06-13 19374-4 CALCITRIOL(1,25 DI-OH VIT D) 55.6 PG/ML 24.8-81.5
--- OUTSIDE RECORDS SUMMARY | 2025-07-06 12:37 | XMS_ITS | Clinical Summary ---
Author Organization [facility] yste Address [address] [place] [address] Care Team Providers Care Crossband Layer Name Role Phone Provider, No Known Primary Care Provider Unavail able Allergies Active Allergy Reactions Criticality Noted Date Comments Penicillins Rash Low 06/27/2021 Local rash at injection site Medications montelukast (SINGULAIR) 10 MG tablet Take 1 tablet by mouth Every Night. Active furosemide (LASIX) 40 MG tablet Take 1 tablet by mouth Daily. Active atorvastatin (LIPITOR) 40 MG tablet Take 1 tablet by mouth Daily. Active losartan (COZAAR) 50 MG tablet Take 1 tablet by mouth Daily. Active tolterodine LA (DETROL LA) 4 MG 24 hr capsule Take 1 capsule by mouth Daily. 02/28/2025 Active Active Problems Problem Noted Date Diagnosed Date Status post total right knee replacement revisio n 07/04/2021 Right knee pain 07/03/2021 Hypertension 07/03/2021 Hyperlipidemia 07/03/2021 Encounters Date Type Department Care Team Description 06/15/2025 Results Follow-Up [facility] [address] [place] [address] Hadyee Fermin MD 06/13/2025 10:45 AM EDT Office Visit [facility] [address] [place] [address] Haydee Fermin MD High serum parathyroid hormone (PTH) (Primary Dx); Vitamin D deficiency; Multiple thyroid nodules 06/13/2025 Travel from Last 3 Months Social History Tobacco Use Types Packs/Day Years [...] on file Sexual Orientation Not on file Last Filed Vital Signs Vital Sign Reading Time Taken Comments Blood Pressure 128/70 06/13/2025 10:11 AM EDT Pulse 81 06/13/2025 10:11 AM EDT Temperature 36.9 C (98.4 F) 07/04/2021 7:45 AM EDT Respiratory Rate 18 07/04/2021 7:45 AM EDT Oxygen Saturation 95% 06/13/2025 10:11 AM EDT Inhaled Oxygen Concentration - - Weight 75.6 kg (166 lb 9.6 oz) 06/13/2025 10:11 AM EDT Height 162.6 cm (5' 4 ) 06/13/2025 10:11 AM EDT Body Mass Index 28.6 06/13/2025 10:11 AM EDT Plan of Treatment Health Maintenance Due Date Last Done Comments DXA SCAN 1938 LIPID PANEL 1938 TDAP/TD VACCINES (1 - Tdap) 1957 ZOSTER VACCINE (1 of 2) 1988 Pneumococcal Vaccine 50+ (2 of 2 - PCV) 09/28/2009 09/28/2008 RSV Vaccine - Adults (1 - 1- dose 75+ series) 2013 ANNUAL WELLNESS VISIT 06/27/2021 COVID-19 Vaccine (4 - 2023-2 5 season) 2024 12/13/2021, 02/06/2021, 01/09/2021 INFLUENZA VACCINE 08/30/2025 10/06/2024, , 09/12/2022, Additional history exists Medical Devices Implanted Type Area Orthopedic Specialist Device Identifier Shelf Expiration Date Model / Serial / Lot Right Inee Replacement Hardware Implant Description:Replaced 1998 Bilateral Intraoccular Lens Implant Implant Spinal Cord Stimulator Implant Description:approx 2014 Fem/Kn Triathlon Totlstbl Dist Sz4 5mm Rt - [id number] Implanted:Qty: 1 on 07/03/2021 by Shai Abreu MD at [facility] Implant Right: Knee LORETTA MILAGROS [id number] 03/11/2026 [id number] / / [id number] Jun Cone Tib/Kn Triathlon Rev Symm Szb - [id number] Implanted:Qty: 1 on 07/03/2021 by Shai Abreu MD at [facility] Implant Right: Knee LORETTA MILAGROS [id number] 05/19/2026 [id number] / / [id number] Aug Tib Triath 1/2blck Rl/Lm Sz3 5mm - [id number] Implanted:Qty: 1 on 07/03/2021 by Shai Abreu MD at [facility] Implant Right: Knee LORETTA MILAGROS [id number] 02/24/2026 [id number] / / [id number] Jun Tib Triath /2blck Ll/Rm Sz3 5mm - [id number] Implanted:Qty: 1 on 07/03/2021 by Shai Abreu MD at [facility] Implant Right: Knee LORETTA MILAGROS [id number] 02/11/2026 [id number] / / [id number] Stem Fem Triath Cmt 78k77ei - [id number] Implanted:Qty: 1 on 07/03/2021 by Shai Abreu MD at [facility] Implant Right: Knee LORETTA MILAGROS [id number] 05/09/2026 [id number] / / [id number] Aug Fem/Kn Triathlon Totlstbl Dist Sz4 5mm Rt - [id number] Implanted:Qty: 1 on 07/03/2021 by Shai Abreu MD at [facility] Implant Right: Knee LORETTA MILAGROS [id number] 03/11/2026 [id number] / / [id number] Comp Fem Triath Ts Sz4 Rt - [id number] Implanted:Qty: 1 on 07/03/2021 by Shai Abreu MD at [facility] Implant Right: Knee LORETTA MILAGROS [id number] 05/21/2026 [id number] / / [id number] Baseplt Tib Triath Ts No3 - [id number] Implanted:Qty: 1 on 07/03/2021 by Shai Abreu MD at [facility] Implant Right: Knee LORETTA MILAGROS [id number] 02/18/2026 [id number] / / [id number] Restrictor [id number] - [id number] Implanted:Qty: 1 on 07/03/2021 by Shai Abreu MD at [facility] Implant Right: Knee LORETTA MILAGROS [id number] 03/20/2026 [id number] / [id number] / [id number] Restrictor [facility] 30mm Lg - [id number] - [id number] Implanted:Qty: 1 on 07/03/2021 by Shai Abreu MD at [facility] Implant Right: Knee LORETTA MILAGROS [id number] 01/17/2026 [id number] / [id number] / [id number] Insrt Tib Triath X3 Totl Stbl Sz3 19 - [id number] Implanted:Qty: 1 on 07/03/2021 by Shai Abreu MD at [facility] Implant Right: Knee LORETTA MILAGROS 11/03/2022 [id number] / / [id number] Sut Contrl Tiss Stratafix Spiral Pdo Bidir 1 13n98re - [id number] Implanted:Qty: 1 on 07/03/2021 by Shai Abreu MD at [facility] Implant Right: Knee [employer] J AND J 03/29/2026 [id number] / / [id number] [facility] Bone Simplex/P Tmycin Fdos 10pk - [id number] Implanted:Qty: 4 on 07/03/2021 by Shai Abreu MD at [facility] Implant Right: Knee LORETTA MILAGROS 08/29/2022 [id number] / / [id number] Cone Aug Fem/Kn Triathlon Ts Ctr Ss8nyd1 Rt - [id number] Implanted:Qty: 1 on 07/03/2021 by Shai Abreu MD at [facility] Implant Right: Knee LORETTA MILAGROS [id number] 10/11/2025 [id number] / / [id number] Ext Stem Triath Kn Totl Cocr Flut 15s51cv - [id number] Implanted:Qty: 1 on 07/03/2021 by Shai Abreu MD at [facility] Implant Right: Knee LORETTA MILAGROS [id number] 06/04/2026 [id number] / / [id number] Aug Fem/Kn Triathlon Rev Post Sz4 5mm - [id number] Implanted:Qty: 1 on 07/03/2021 by Shai Abreu MD at [facility] Implant Right: Knee LORETTA MILAGROS [id number] 01/14/2026 [id number] / / [id number] Stem Fem Triath Cmt 78y80px - [id number] Implanted:Qty: 1 on 07/03/2021 by Shai Abreu MD at [facility] Implant Right: Knee LORETTA MILAGROS [id number] 03/10/2026 [id number] / / [id number] Procedures Procedure Name Priority Date/Time Associated Diagnosis Comments VITAMIN D,25-HYDROXY Routine 06/13/2025 10:37 AM EDT Vitamin D deficiency CALCITRIOL (1,25 DI-OH VITAMIN D) Routine 06/13/2025 10:37 AM EDT Vitamin D deficiency RENAL FUNCTION PANEL Routine 06/13/2025 10:37 AM EDT High serum parathyroid hormone (PTH) PTH, INTACT Routine 06/13/2025 10:37 AM EDT High serum parathyroid hormone (PTH) from Last 3 Months Results * Calcitriol (1,25 di-OH Vitamin D) (06/13/2025 10:37 AM EDT) 1,25-Dihydroxy, Vitamin D 55.6 24.8 - 81.5 pg/mL 06/16/2025 1:10 PM EDT [facility] Blood Venipuncture / Unknown 06/13/2025 10:37 AM EDT 06/13/2025 10:37 AM EDT Narrative [facility] - 06/16/2025 1:10 PM EDT Performed at: [address] [place] [id number] Teacher Of Gifted Students: Sharda Villareal MD, Phone: [phone] us Haydee Fermin MD LAB BLOOD ORDERABLES Final Resu lt Performing Organization Address City/[facility]/ZIP Co de Phone Number [facility] [address] [place] [address], * Vitamin D,25-Hydroxy (06/13/2025 10:37 AM EDT) 25 Hydroxy, Vitamin D 52.7 30.0 - 100.0 ng/ml 06/13/2025 3:05 PM EDT [facility] Blood Venipuncture / Unknown 06/13/2025 10:37 AM EDT 06/13/2025 10:37 AM EDT Narrative [facility] - 06/13/2025 3:05 PM EDT Reference Range for Total Vitamin D 25(OH) Deficiency <20.0 ng/mL Insufficiency 21-29 ng/mL Sufficiency 30-100 ng/mL Toxicity >100 ng/ml us Haydee Fermin MD LAB BLOOD ORDERABLES Final Resu lt [facility]
[address] [place] [address], * (ABNORMAL) PTH, Intact (06/13/2025 10:37 AM EDT) Pathologist [facility] PTH, Intact 106.0(H) 15.0 - 65.0 pg/mL 06/13/2025 3:01 PM EDT [facility] Blood Structure of left upper limb / Unknown Venipuncture / Unknown 06/13/2025 10:37 AM EDT 06/13/2025 10:37 AM EDT Narrative [facility] - 06/13/2025 3:01 PM EDT Results may be falsely decreased if patient taking Biotin. Haydee Fermin MD LAB BLOOD ORDERABLES Final Resu lt [facility]
[address] [place] [address], * (ABNORMAL) Renal Function Panel (06/13/2025 10:37 AM EDT) [facility] Glucose 97 65 - 99 mg/dL 06/13/2025 2:52 PM EDT [facility] BUN 11.0 8.0 - 23.0 mg/dL 06/13/2025 2:52 PM EDT [facility] Creatinine 0.88 0.57 - 1.00 mg/dL 06/13/2025 2:52 PM EDT [facility] Sodium 141 136 - 145 mmol/L 06/13/2025 2:52 PM EDT [facility] Potassium 3.8 3.5 - 5.2 mmol/L 06/13/2025 2:52 PM EDT [facility] Chloride 107 98 - 107 mmol/L 06/13/2025 2:52 PM EDT [facility] CO2 26.9 22.0 - 29.0 mmol/L 06/13/2025 2:52 PM EDT [facility] Calcium 10.4 8.6 - 10.5 mg/dL 06/13/2025 2:52 PM EDT [facility] Albumin 3.8 3.5 - 5.2 g/dL 06/13/2025 2:52 PM EDT [facility] Phosphorus 2.2(L) 2.5 - 4.5 mg/dL 06/13/2025 2:52 PM EDT [facility] Anion Gap 7.1 5.0 - 15.0 mmol/L 06/13/2025 2:52 PM EDT [facility] BUN/Creatinine Ratio 12.5 7.0 - 25.0 06/13/2025 2:52 PM EDT [facility] eGFR 64.1 >60.0 mL/min/1.7 3 06/13/2025 2:52 PM EDT [facility] Blood Venipuncture / Unknown 06/13/2025 10:37 AM EDT 06/13/2025 10:37 AM EDT [facility] - 06/13/2025 2:52 PM EDT GFR [...] include race as a factor us Haydee Fermin MD LAB BLOOD ORDERABLES Final Resu lt [facility]
[address] [place] [address], from Last 3 Months Insurance MEDICARE A & B Member Subscriber Plan / Payer (Ef fective 2003-Present) Name:Cristel Blackwood Member ID:[id number] Relation to Subscriber:Self Name:Cristel Blackwood Subscriber ID:[id number] Payer ID:[id number] Group ID:Not on file Type:Not on file Address: [address] HEALTH CARE OPTIONS Advance Directives Documents on File Type Date Recorded Patient Disability Services Coordinator Expl anation LIVING WILL - SCAN 07/05/2021 1:09 PM ANUPAMA Bernardo WILL/HEALTH SURROGATE, [facility], 04/07/2012 * CPR (Attempt to Resuscitate) (Latest Code Status on File) Date Activated Date Inactivated Comments 07/03/2021 2:34 PM 07/04/2021 2:27 PM Question Answer Comments Code Status (Patient has no pulse and is not breathing): CPR (Attempt to Resuscitate) Medical Interventions (Patie nt has pulse or is breathing): Full Level Of Support Discussed With: Patient Healthcare Agents on File Name Relationship Healthcare Agent [facility] Communication Jil Boyd Daughter Health Care Surrogate Care Teams Crossband Layer Relationship Specialty Start Date End Date Provider, [place] [address] PCP - General 03/14/25
== END 2025-07-06 23:59 | disposition home or self-care (01) ==
LOC: RAD 12:35
PROVIDERS: PCP Nurse Practitioner Family; Visit Provider Internal Medicine
DX: E04.2 Nontoxic multinodular goiter (principal)
CPT/HCPCS: 76536

== ENCOUNTER 2025-08-14 16:00 | Outpatient (CLI) | payer MEDICARE, SELFPAY ==
--- OUTSIDE RECORDS SUMMARY | 2025-08-15 09:18 | XMS_ITS | Clinical Summary ---
Author Organization Healthcare Address [address] [place] [address] Care Team Providers Care Baccarat Manager Name Role Phone Wally Cherry MD Primary Care Provider + [phone] Darius Kinney MD Unavailable [phone] Allergies Active Allergy Reactions Criticality Noted Date [...] 75+ series) 2013 [facility]-Depression Screening 05/04/2024 05/04/2023 [id number] Vaccine ( season) 2025 12/13/2021, 02/06/2021, 01/09/2021 [facility]-Influenza Vaccine (#1) 07/31/202509/12, [...] age to complete this topic Insurance MEDICARE [facility] Care Teams Baccarat Manager Relationship Specialty Start Date End Date Wally Cherry MD [address] [place] [address] PCP - General 04/13/23 Darius Kinney MD [address] [facility] [address] [place] [address] Referring Physician Cardiology 04/13/23
--- OUTSIDE RECORDS SUMMARY | 2025-08-15 09:18 | XMS_ITS | Clinical Summary ---
Author Organization [facility] yste Address [address] [place] [address] Care Team Providers Care Chief Of Staff Name Role Phone Provider, No Known Primary [...] CENTER ENDOCRINOLOGY [address] [place] [address] Haydee Fermin MD 06/13/2025 10:45 AM EDT Office Visit [facility] [address] [place] [address] Haydee Fermin MD High serum parathyroid hormone [...] WELLNESS VISIT 06/27/2021 COVID-19 Vaccine (4 - 2024-2 6 season) 2025 12/13/2021, 02/06/2021, 01/09/2021 INFLUENZA VACCINE 08/30/2025 10/06/2024, , 09/12/2022, Additional history exists Medical Devices Implanted Type Area Weatherization Operations Manager Device Identifier Shelf Expiration Date Model / Serial / Lot Right Inee Replacement Hardware Implant Description:Replaced 1998 Bilateral Intraoccular Lens Implant Implant Spinal Cord Stimulator Implant Description:approx 2014 Fem/Kn Triathlon Totlstbl Dist Sz4 5mm Rt - [id number] Implanted:Qty: 1 on 07/03/2021 by Shai Abreu MD at [facility] Implant Right: Knee LORETTA MILAGROS [id number] 03/11/2026 [id number] / / [id number] Jun Cone Tib/Kn Triathlon Rev Symm Szb - [id number] Implanted:Qty: 1 on 07/03/2021 by Shai Abreu MD at [facility] Implant Right: Knee LORETTA MILAGROS [id number] 05/19/2026 [id number] / / [id number] Aug Tib Triath 1/2blck Rl/Lm Sz3 5mm - [id number] Implanted:Qty: 1 on 07/03/2021 by Shai Abreu MD at [facility] Implant Right: Knee LORETTA MILAGROS [id number] 02/24/2026 [id number] / / [id number] Jun Tib Triath /2blck Ll/Rm Sz3 5mm - [id number] Implanted:Qty: 1 on 07/03/2021 by Shai Abreu MD at [facility] Implant Right: Knee LORETTA MILAGROS [id number] 02/11/2026 [id number] / / [id number] Stem Fem Triath Cmt 90r22aq - [id number] Implanted:Qty: 1 on 07/03/2021 by Shai Abreu MD at [facility] Implant Right: Knee LORETTA MILAGROS [id number] 05/09/2026 [id number] / / [id number] Aug Fem/Kn Triathlon Totlstbl Dist Sz4 5mm Rt - [id number] Implanted:Qty: 1 on 07/03/2021 by Shai Abreu MD at [facility] Implant Right: Knee LORETTA MILAGROS [id number] 03/11/2026 [id number] / / [id number] Comp Fem Triath Ts Sz4 Rt - [id number] Implanted:Qty: 1 on 07/03/2021 by Shai Abreu MD at [facility] Implant Right: Knee LORETTA MILAGROS [id number] 05/21/2026 [id number] / / [id number] Baseplt Tib Triath Ts No3 - [id number] Implanted:Qty: 1 on 07/03/2021 by Shai Abreu MD at [facility] Implant Right: Knee LORETTA MILAGROS [id number] 02/18/2026 [id number] / / [id number] Restrictor [facility]347626 - [id number] Implanted:Qty: 1 on 07/03/2021 by Shai Abreu MD at [facility] Implant Right: Knee LORETTA MILAGROS [id number] 03/20/2026 [id number] / [id number] / [id number] Restrictor [facility] 30mm Lg - [id number] - [id number] Implanted:Qty: 1 on 07/03/2021 by Shai Abreu MD at [facility] Implant Right: Knee LORETTA MILAGROS [id number] 01/17/2026 [id number] / [id number] / [id number] Insrt Tib Triath X3 Totl Stbl Sz3 19 - [id number] Implanted:Qty: 1 on 07/03/2021 by Shai Abreu MD at [facility] Implant Right: Knee LORETTA MILAGROS 11/03/2022 [id number] / / [id number] Sut Contrl Tiss Stratafix Spiral Pdo Bidir 1 31i75qx - [id number] Implanted:Qty: 1 on 07/03/2021 by Shai Abreu MD at [facility] Implant Right: Knee [employer] DIV OF J AND J 03/29/2026 [id number] / / [id number] [facility] Bone Simplex/P Tmycin Fdos 10pk - [id number] Implanted:Qty: 4 on 07/03/2021 by Shai Abreu MD at [facility] Implant Right: Knee LORETTA MILAGROS 08/29/2022 [id number] / / [id number] Cone Aug Fem/Kn Triathlon Ts Ctr Bo9qqr4 Rt - [id number] Implanted:Qty: 1 on 07/03/2021 by Shai Abreu MD at [facility] Implant Right: Knee LORETTA MILAGROS [id number] 10/11/2025 [id number] / / [id number] Ext Stem Triath Kn Totl Cocr Flut 46p52yb - [id number] Implanted:Qty: 1 on 07/03/2021 by Shai Abreu MD at [facility] Implant Right: Knee LORETTA MILAGROS [id number] 06/04/2026 [id number] / / [id number] Aug Fem/Kn Triathlon Rev Post Sz4 5mm - [id number] Implanted:Qty: 1 on 07/03/2021 by Shai Abreu MD at [facility] Implant Right: Knee LORETTA MILAGROS [id number] 01/14/2026 [id number] / / [id number] Stem Fem Triath Cmt 38z33mz - [id number] Implanted:Qty: 1 on 07/03/2021 by Shai Abreu MD at [facility] Implant Right: Knee LORETTA MILAGROS [id number] 03/10/2026 [id number] / / [id number] Procedures Procedure Name Priority Date/Time Associated Diagnosis [...] AM EDT 06/13/2025 10:37 AM EDT Narrative [facility] - 06/16/2025 1:10 PM EDT Performed at: [address] [place] [id number] Machine Installer: Sharda Villareal MD, Phone: [phone] us Haydee Fermin MD LAB BLOOD ORDERABLES Final Resu lt Performing Organization Address City/[facility]/ZIP Co de Phone Number [facility] [address] [place] [address], * Vitamin D,25-Hydroxy (06/13/2025 10:37 AM EDT) 25 Hydroxy, Vitamin D 52.7 30.0 - 100.0 ng/ml 06/13/2025 3:05 PM EDT [facility] Blood Venipuncture / Unknown 06/13/2025 10:37 AM EDT 06/13/2025 10:37 AM EDT Narrative [facility] - 06/13/2025 3:05 PM EDT Reference Range for Total Vitamin D 25(OH) Deficiency <20.0 ng/mL Insufficiency 21-29 ng/mL Sufficiency 30-100 ng/mL Toxicity >100 ng/ml us Haydee Fermin MD LAB BLOOD ORDERABLES Final Resu lt [facility]
[address] [place] [address], * (ABNORMAL) PTH, Intact (06/13/2025 10:37 AM EDT) Pathologist [facility] PTH, Intact 106.0(H) 15.0 - 65.0 pg/mL 06/13/2025 3:01 PM EDT [facility] Blood Structure of left upper limb / Unknown Venipuncture / Unknown 06/13/2025 10:37 AM EDT 06/13/2025 10:37 AM EDT Narrative [facility] - 06/13/2025 3:01 PM EDT Results may be falsely decreased if patient taking Biotin. Haydee Fermin MD LAB BLOOD ORDERABLES Final Resu lt [facility]
[address] [place] [address], * (ABNORMAL) Renal Function Panel (06/13/2025 10:37 AM EDT) [facility] Glucose 97 65 - 99 mg/dL 06/13/2025 2:52 PM EDT [facility] BUN 11.0 8.0 - 23.0 mg/dL 06/13/2025 2:52 PM EDT [facility] Creatinine 0.88 0.57 - 1.00 mg/dL 06/13/2025 2:52 PM EDT [facility] Sodium 141 136 - 145 mmol/L 06/13/2025 2:52 PM EDT [facility] Potassium 3.8 3.5 - 5.2 mmol/L 06/13/2025 2:52 PM EDT [facility] Chloride 107 98 - 107 mmol/L 06/13/2025 2:52 PM EDT [facility] CO2 26.9 22.0 - 29.0 mmol/L 06/13/2025 2:52 PM EDT [facility] Calcium 10.4 8.6 - 10.5 mg/dL 06/13/2025 2:52 PM EDT [facility] Albumin 3.8 3.5 - 5.2 g/dL 06/13/2025 2:52 PM EDT [facility] Phosphorus 2.2(L) 2.5 - 4.5 mg/dL 06/13/2025 2:52 PM EDT [facility] Anion Gap 7.1 5.0 - 15.0 mmol/L 06/13/2025 2:52 PM EDT [facility] BUN/Creatinine Ratio 12.5 7.0 - 25.0 06/13/2025 2:52 PM EDT [facility] eGFR 64.1 >60.0 mL/min/1.7 3 06/13/2025 2:52 PM EDT [facility] Blood Venipuncture / Unknown 06/13/2025 10:37 AM EDT 06/13/2025 10:37 AM EDT [facility] - 06/13/2025 2:52 PM EDT GFR [...] MD LAB BLOOD ORDERABLES Final Resu lt [facility]
[address] [place] [address], from Last 3 Months Insurance MEDICARE A & B Member Subscriber Plan / Payer (Ef fective 2003-Present) Name:Cristel Blackwood Member ID:[id number] Relation to Subscriber:Self Name:Cristel Blackwood Subscriber ID:[id number] Payer ID:[id number] Group ID:Not on file Type:Not on file Address: [address] HEALTH CARE OPTIONS Advance Directives Documents on File Type Date Recorded Patient Manager Transplant Expl anation LIVING WILL - SCAN 07/05/2021 1:09 PM ANUPAMA Bernardo WILL/HEALTH SURROGATE, [facility], 04/07/2012 * CPR (Attempt to Resuscitate) (Latest Code Status on File) Date Activated Date Inactivated Comments 07/03/2021 2:34 PM 07/04/2021 2:27 PM Question Answer Comments Code Status (Patient has no pulse and is not breathing): CPR (Attempt to Resuscitate) Medical Interventions (Patie nt has pulse or is breathing): Full Level Of Support Discussed With: Patient Healthcare Agents on File Name Relationship Healthcare Agent [facility] Communication Jil Boyd Daughter Health Care Surrogate Care Teams Chief Of Staff Relationship Specialty Start Date End Date Provider, No Known [facility] [place] [address] PCP - General 03/14/25
--- OUTSIDE RECORDS SUMMARY | 2025-08-15 09:18 | XMS_ITS | Clinical Summary ---
Author Organization [employer] ([place], [place], [place], [place]) Address [address] [place] [address] Care Team Providers Care Clinical Staff Educator Name Role Phone Unavailable Primary Care Provider Unavailabl e Social History Tobacco Use Types Packs/Day Years Used Date Smoking Tobacco: Never Assessed Food Insecurity Answer Date Recorded Food run out past 12 months Not on file 11/30 Food did not last past 12 months Not on file 12/18/2023 Employment Answer Date Recorded Help finding and keeping a job Not on file 0 12/18/2023 Family and Community Support Answer Andrea e Recorded Help with Day to Day Activities Not on file 12/18/2023 Feeling Lonely or Isolated Not on file 12/18 Educational Attainment Answer Date Keron rded Speak language other than [place]rugu[place] at home Not on file 12/18/2023 Want help with school or training Not on file 12/18/2023 Substance Use Answer Date Recorded Used prescription meds for non-medical reasons N ot on file 12/18/2023 Used illegal drugs past 12 months Not on file 12/18/2023 Comments Unknown Sex and Gender Information Value Date Recorded Sex Assigned at Not on file Legal Sex Female 7:43 PM CDT Gender Identity Not on file Sexual Orientation Not on file Plan of Treatment Health Maintenance Due Date Last Done Comments Depression Screening (12+) 1950 Tobacco Cessation Counseling and Screening (12+) 1952 DTAP/TDAP/TD VACCINES (1 - Tdap) 1957 Shingles Vaccine (Zoster) (1 of 2) 1988 Pneumococcal 50+ years (2 of 2 - PCV) 09/28/2009 Respiratory Syncytial Virus (RSV) Adult or (1 - 1-dose 75+ series) 2013 Falls Risk Screening 11/30/2024 COVID-19 VACCINE (4 - 2024- season) 2025 12/13/2021, 02/06/2021, 01/09/2021 Influenza Vaccine (#1) 2025 08/14/2021, 2019
--- OUTSIDE RECORDS SUMMARY | 2025-08-15 09:18 | XMS_ITS | Referral Summary ---
Author Organization [employer] ([place], [place], [place], [place]) Address [address] [place] [address] Care Team Providers Care Commercial Producer Name Role Phone Unavailable Primary Care Provider [...] Date Keron rded Speak language other than Dutch at home Not on file 12/18/2023 Want [...] Orientation Not on file Plan of Treatment Not on file
--- OUTSIDE RECORDS SUMMARY | 2025-08-15 09:18 | XMS_ITS | Encounter Summary ---
Author Organization Healthcare Address [address] [place] [address] Care Team Providers Care Bung Driver Name Role Phone Wally Cherry MD Primary Care Provider + [phone] Darius Kinney MD Unavailable [phone] Encounter Details Date Type Department Care Team (Late st Contact Info) Description 03/16/2023 Orders Only External Location [address] [place] [address] Provider, External Social History Tobacco Use Types [...] on filedocumented in this encounter Care Teams Bung Driver Relationship Specialty Start Date End Date Wally Cherry MD [address] [place] [address] PCP - General 04/13/23 Darius Kinney MD [address] [place] [address] Referring Physician Cardiology 04/13/23 documented as of this encounter
--- OUTSIDE RECORDS SUMMARY | 2025-08-15 09:18 | XMS_ITS | Encounter Summary ---
Author Organization [facility] ystem Address [address] [place] [address] Care Team Providers Care Victims Advocate Clerk/Specialist Name Role Phone Provider, No Known Primary Care Provider Unavail able Encounter Details Date Type Department Care Team (Late st Contact Info) Description 06/15/2025 Results Follow-Up [facility] ENDOCRINOLOGY [address] [facility] [address] [place] [address] Haydee Fermin MD [address] [facility] [address] [place] [address] Social History Tobacco Use Types Packs/Day Years [...] on filedocumented in this encounter Care Teams Victims Advocate Clerk/Specialist Relationship Specialty Start Date End Date Provider, [place] [address] PCP - General 03/14/25 documented as of this encounter
--- OUTSIDE RECORDS SUMMARY | 2025-08-15 09:18 | XMS_ITS | Encounter Summary ---
Author Organization [facility] ystem Address [address] [place] [address] Care Team Providers Care Instrumentation Designer Name Role Phone Provider, No Known Primary Care Provider Unavail able Encounter Details Date Type Department Care Team (Late st Contact Info) Description 03/14/2025 Results Follow-Up [facility] ENDOCRINOLOGY [address] [facility] [address] [place] [address] Haydee Fermin MD [address] [facility] [address] [place] [address] Social History Tobacco Use Types Packs/Day Years [...] on filedocumented in this encounter Care Teams Instrumentation Designer Relationship Specialty Start Date End Date Provider, [place] [address] PCP - General 03/14/25 documented as of this encounter
== END 2025-08-14 23:59 | disposition home or self-care (01) ==
LOC: LAB.DROPOF 08-15 08:46
PROVIDERS: PCP Nurse Practitioner Family; Visit Provider Nurse Practitioner Family
DX: R30.0 Dysuria (principal); R31.9 Hematuria, unspecified
CPT/HCPCS: 87086

== ENCOUNTER 2025-08-23 08:06 | Outpatient (CLI) | payer MEDICARE, SELFPAY ==
[2025-08-23 09:23] LABS: Alanine Aminotransferase 14 U/L (12-78); Albumin Level 3.5 g/dl (3.5-5.0); Albumin/Globulin Ratio 1.4 (1.1-1.8); Alkaline Phosphatase 87 U/L (38-126); Anion Gap 7.7 mEq/L (5-15); Aspartate Amino Transferase 23 U/L (14-36); Bilirubin,Total 0.8 mg/dl (0.2-1.3); Blood Urea Nitrogen 14 mg/dl (7-17); Calcium 10.1 mg/dl (8.4-10.2); Carbon Dioxide 29 mmol/L (22.0-30.0); Chloride 104 mmol/L (98-107); Cholesterol 123 mg/dl (140-200); Creatinine,Serum 0.90 mg/dl (0.52-1.04); Estimated Glomerular Filt Rate 59 ml/min (>60); GFR (African American) 72 ML/MIN (>60); Globulin 2.5 g/dL (1.3-3.2); Glucose 91 mg/dl (74-100); HDL Cholesterol 45 mg/dl (40-60); Potassium 3.7 mmoL/L (3.5-5.1); Sodium 137 mmol/L (136-145); Total Protein,Serum 6.0 g/dl (6.3-8.2); Triglycerides 112 mg/dl (30-150)
[2025-08-23 09:42] LABS: 25-OH Vitamin D, Total 54.8 ng/mL (30-100)
[2025-08-23 09:44] LABS: Free T4 (Free Thyroxine) 0.99 ng/dl (0.78-2.19); Free Thyroxine Index 2.6 ug/dL (5.93-13.13); T4 (Thyroxine) 8.1 ug/dl (5.53-11.0); Triiodothryronine (T3) Uptake 32 % (23.5-40.5)
[2025-08-23 09:57] LABS: Thyroid Stimulating Hormone 2.43 uIU/mL (0.465-4.68)
[2025-08-23 12:14] LABS: Hemoglobin A1C 5.3 % (4.0-6.0)
== END 2025-08-23 23:59 | disposition home or self-care (01) ==
LOC: LAB 08:08
PROVIDERS: PCP Nurse Practitioner Family; Visit Provider Nurse Practitioner Family
DX: Z00.00 Encounter for general adult medical examination without abnormal findings (principal); R41.3 Other amnesia; G47.33 Obstructive sleep apnea (adult) (pediatric); E21.3 Hyperparathyroidism, unspecified; R76.8 Other specified abnormal immunological findings in serum; E55.9 Vitamin D deficiency, unspecified; M06.9 Rheumatoid arthritis, unspecified; N32.81 Overactive bladder; Z11.59 Encounter for screening for other viral diseases; Z11.4 Encounter for screening for human immunodeficiency virus [HIV]; N39.0 Urinary tract infection, site not specified; E78.5 Hyperlipidemia, unspecified; I11.9 Hypertensive heart disease without heart failure; E11.9 Type 2 diabetes mellitus without complications
CPT/HCPCS: 36415; 80053; 80061; 82306; 83036; 84436; 84439; 84443; 84479; 87389

== ENCOUNTER 2025-10-16 14:46 | Outpatient (CLI) | payer MEDICARE, SELFPAY | END 2025-10-16 23:59 | disposition home or self-care (01) | LOC: LAB.DROPOF 10-17 10:50 | PROVIDERS: PCP Nurse Practitioner Family; Visit Provider Nurse Practitioner Family | DX: R31.9 Hematuria, unspecified (principal) | CPT/HCPCS: 87086 ==

== ENCOUNTER 2025-11-16 15:18 | Outpatient (CLI) | payer MEDICARE, SELFPAY ==
[2025-11-16 16:50] LABS: Coronavirus 19, PCR Not Detected (NotDetected); Influenza A, PCR Not Detected (NotDetected); Influenza B, PCR Not Detected (NotDetected); Microscopic, Urine URINE MICROSCOPIC (MICROSCOPIC)
[2025-11-16 17:21] LABS: Bilirubin,Urine Negative (Negative); Color,Urine YELLOW (Yellow); Glucose,Urine (UA) Negative (Negative); Ketones,Urine Negative (Negative); Leukocyte Esterase,Urine Negative (Negative); PH,Urine 5.5 (5.0-8.5); Protein,Urine Negative (Negative); Specific Gravity, Urine >= 1.030 (1.005-1.030); Urobilinogen,Urine 1.0 EU/dl (0.2)
[2025-11-16 20:21] LABS: Bacteria,Urine 1+ /lpf; Calcium Oxalate Crystals,Urine 3+ /lpf; Mucus,Urine 3+ /lpf
--- OUTSIDE RECORDS SUMMARY | 2025-11-17 11:05 | XMS_ITS | Clinical Summary ---
Author Organization [facility] ystem Address [address] [place] [address] Care Team Providers Care Facilities And Grounds Director Name Role Phone Provider, No Known Primary [...] knee pain 07/03/2021 Hypertension 07/03/2021 Hyperlipidemia 07/03/2021 Social History Tobacco Use Types Packs/Day Years [...] 2013 ANNUAL WELLNESS VISIT 06/27/2021 COVID-19 Vaccine (3 - Modern a risk series) 01/10/2022 12/13/2021, 02/06/2021, 01/09/2021 INFLUENZA VACCINE 06/30/2025 10/06/2024, , 09/12/2022, Additional history exists Medical Devices Implanted Type Area Dinner Cook Device Identifier Shelf Expiration Date Model / Serial / Lot Right Inee Replacement Hardware Implant Description:Replaced 1998 Bilateral Intraoccular Lens Implant Implant Spinal Cord Stimulator Implant Description:approx 2014 Fem/Kn Triathlon Totlstbl Dist Sz4 5mm Rt - [id number] Implanted:Qty: 1 on 07/03/2021 by Shai Abreu MD at [facility] Implant Right: Knee [employer] MILAGROS [id number] 03/11/2026 [id number] / / [id number] Jun Cone Tib/Kn Triathlon Rev Symm Szb - [id number] Implanted:Qty: 1 on 07/03/2021 by Shai Abreu MD at [facility] Implant Right: Knee LORETTA MILAGROS [id number] 05/19/2026 [id number] / / [id number] Aug Tib Triath lck Rl/Lm Sz3 5mm - [id number] Implanted:Qty: 1 on 07/03/2021 by Shai Abreu MD at [facility] Implant Right: Knee LORETTA MILAGROS [id number] 02/24/2026 [id number] / / [id number] Jun Tib Triath lck Ll/Rm Sz3 5mm - [id number] Implanted:Qty: 1 on 07/03/2021 by Shai Abreu MD at [facility] Implant Right: Knee LORETTA MILAGROS [id number] 02/11/2026 [id number] / / [id number] Stem Fem Triath Cmt 29q74pm - [id number] Implanted:Qty: 1 on 07/03/2021 by Shai Abreu MD at [facility] Implant Right: Knee LORETTA MILAGROS [id number] 05/09/2026 [id number] / / [id number] Aug Fem/Kn Triathlon Totlstbl Dist Sz4 5mm Rt - [id number] Implanted:Qty: 1 on 07/03/2021 by Shai Abreu MD at [facility] Implant Right: Knee LORETTA MILAGROS [id number] 03/11/2026 [id number] / / [id number] Comp Fem Triath Ts Sz4 Rt - [id number] Implanted:Qty: 1 on 07/03/2021 by Shai Abreu MD at [facility] Implant Right: Knee LORETTA MILAGROS [id number] 05/21/2026 [id number] / / [id number] Baseplt Tib Triath Ts No3 - [id number] Implanted:Qty: 1 on 07/03/2021 by Shai Abreu MD at [facility] Implant Right: Knee LORETTA MILAGROS [id number] 02/18/2026 [id number] / / [id number] [facility] - [id number] Implanted:Qty: 1 on 07/03/2021 by Shai Abreu MD at [facility] Implant Right: Knee LORETTA MILAGROS [id number] 03/20/2026 [id number] / [id number] / [id number] Restrictor [facility] 30mm - [id number] - [id number] Implanted:Qty: 1 on 07/03/2021 by Shai Abreu MD at [facility] Implant Right: Knee LORETTA MILAGROS [id number] 01/17/2026 [id number] / [id number] / [id number] Insrt Tib Triath X3 Totl Stbl Sz3 19 - [id number] Implanted:Qty: 1 on 07/03/2021 by Shai Abreu MD at [facility] Implant Right: Knee LORETTA MILAGROS 11/03/2022 [id number] / / [id number] Sut Contrl Tiss Stratafix Spiral Pdo Bidir 1 16h91lj - [id number] Implanted:Qty: 1 on 07/03/2021 by Shai Abreu MD at [facility] Implant Right: Knee [employer] DIV OF J AND J 03/29/2026 [id number] / / [id number] [facility] Bone Simplex/P Tmycin Fdos 10pk - [id number] Implanted:Qty: 4 on 07/03/2021 by Shai Abreu MD at [facility] Implant Right: Knee LORETTA MILAGROS 08/29/2022 [id number] / / [id number] Cone Aug Fem/Kn Triathlon Ts Ctr Yi8tcy7 Rt - [id number] Implanted:Qty: 1 on 07/03/2021 by Shai Abreu MD at [facility] Implant Right: Knee LORETTA MILAGROS [id number] 10/11/2025 [id number] / / [id number] Ext Stem Triath Kn Totl Cocr Flut 54y67xa - [id number] Implanted:Qty: 1 on 07/03/2021 by Shai Abreu MD at [facility] Implant Right: Knee LORETTA MILAGROS [id number] 06/04/2026 [id number] / / [id number] Aug Fem/Kn Triathlon Rev Post Sz4 5mm - [id number] Implanted:Qty: 1 on 07/03/2021 by Shai Abreu MD at [facility] Implant Right: Knee LORETTA MILAGROS [id number] 01/14/2026 [id number] / / [id number] Stem Fem Triath Cmt 67o36xx - [id number] Implanted:Qty: 1 on 07/03/2021 by Shai Abreu MD at [facility] Implant Right: Knee LORETTA MILAGROS [id number] 03/10/2026 [id number] / / [id number] Insurance MEDICARE A & B Member Subscriber Plan / Payer (Ef fective 2003-Present) Name:Cristel Blackwood Member ID:[id number] Relation to Subscriber:Self Name:Cristel Blackwood Subscriber ID:[id number] Payer ID:[id number] Group ID:Not on file Type:Not on file Address: [address] HEALTH CARE OPTIONS Advance Directives Documents on File Type Date Recorded Patient Stage Set Designer Expl anation LIVING WILL - SCAN 07/05/2021 1:09 PM ANUPAMA Bernardo WILL/HEALTH SURROGATE, [facility] [place], 04/07/2012 * CPR (Attempt to Resuscitate) (Latest Code Status on File) Date Activated Date Inactivated Comments 07/03/2021 2:34 PM 07/04/2021 2:27 PM Question Answer Comments Code Status (Patient has no pulse and is not breathing): CPR (Attempt to Resuscitate) Medical Interventions (Patie nt has pulse or is breathing): Full Level Of Support Discussed With: Patient Healthcare Agents on File Name Relationship Healthcare Agent Relationshi p Communication Jil Boyd Daughter Health Care Surrogate Care Teams Facilities And Grounds Director Relationship Specialty Start Date End Date Provider, [place] [address] PCP - General 03/14/25
--- OUTSIDE RECORDS SUMMARY | 2025-11-17 11:05 | XMS_ITS | Clinical Summary ---
Author Organization Healthcare Address [address] [place] [address] Care Team Providers Care Block Trimmer Name Role Phone Wally Cherry MD Primary Care Provider + [phone] Darius Kinney MD Unavailable [phone] Allergies Active Allergy Reactions Criticality Noted Date [...] 04/13/2023 Hypertension 07/03/2021 Lower back pain 05/03/2021 Hyperlipidemia 11/27/2017 Interstitial cystitis 11/27/2017 Resolved Problems Problem Noted Date Diagnosed Date Resolved Date Arthritis 11/27/2017 08/20/2025 Pericardial effusion, acute 11/27/2017 04/13/2023 Immunizations Immunization [...] 75+ series) 2013 [facility]-Depression Screening 05/04/2024 05/04/2023 [id number] Vaccine ( season) 2025 12/13/2021, 02/06/2021, 01/09/2021 [facility]-Influenza Vaccine (#1) 07/31/202509/12, 08/30/2021, 08/14/2021, Additional history exists [facility]-Obesity Intervention Completed 05/04/2023, 03/30 HPV Vaccines (No Doses Required) Completed [facility]-HIB Vaccines Aged Out No longer e [...] patient's age to complete this [place] [address] [place] [address] MEDICARE [facility] Care Teams Block Trimmer Relationship Specialty Start Date End Date Wally Cherry MD [address] [place] [address] PCP - General 04/13/23 Darius Kinney MD [address] [facility] [address] [place] [address] Referring Physician Cardiology 04/13/23
--- OUTSIDE RECORDS SUMMARY | 2025-11-17 11:05 | XMS_ITS | Referral Summary ---
Author Organization [employer] ([place], [place], [place], [place], [place]) Address [address] [place] [address] Care Team Providers Care Marketing Analytics Specialist Name Role Phone Unavailable Primary Care Provider [...] Date Keron rded Speak language other than Libyan at home Not on file 12/18/2023 Want [...]
--- OUTSIDE RECORDS SUMMARY | 2025-11-17 11:05 | XMS_ITS | Encounter Summary ---
Author Organization Healthcare Address [address] [place] [address] Care Team Providers Care Pound Attendant Name Role Phone Wally Cherry MD Primary Care Provider + [phone] Darius Kinney MD Unavailable [phone] Encounter Details Date Type Department Care Team (Late st Contact Info) Description 03/16/2023 Orders Only External Location [address] [place] [address] Provider, External Social History Tobacco Use Types [...] on filedocumented in this encounter Care Teams Pound Attendant Relationship Specialty Start Date End Date Wally Cherry MD [address] [place] [address] PCP - General 04/13/23 Darius Kinney MD [address] [place] [address] Referring Physician Cardiology 04/13/23 documented as of this encounter
--- OUTSIDE RECORDS SUMMARY | 2025-11-17 11:05 | XMS_ITS | Clinical Summary ---
Author Organization [employer] ([place], [place], [place], [place], [place]) Address [address] [place] [address] Care Team Providers Care Putty Maker Name Role Phone Unavailable Primary Care Provider [...] Date Keron rded Speak language other than Nigerien at home Not on file 12/18/2023 Want [...] Risk Screening 11/30/2024 COVID-19 VACCINE (4 - 2025-26 season) 2025 12/13/2021, 02/06/2021, 01/09/2021 Influenza Vaccine (#1) 2025 08/14/2021, 2019
--- OUTSIDE RECORDS SUMMARY | 2025-11-17 11:05 | XMS_ITS | Encounter Summary ---
Author Organization [facility] ystem Address [address] [place] [address] Care Team Providers Care Biology Teacher Name Role Phone Provider, No Known Primary Care Provider Unavail able Encounter Details Date Type Department Care Team (Late st Contact Info) Description 03/14/2025 Results Follow-Up [facility] ENDOCRINOLOGY [address] [facility] [address] [place] [address] Haydee Fermin MD [address] [facility] [address] [place] [address] Social History Tobacco Use Types Packs/Day Years [...] on filedocumented in this encounter Care Teams Biology Teacher Relationship Specialty Start Date End Date Provider, [place] [address] PCP - General 03/14/25 documented as of this encounter
--- OUTSIDE RECORDS SUMMARY | 2025-11-17 11:05 | XMS_ITS | Encounter Summary ---
Author Organization [facility] ystem Address [address] [place] [address] Care Team Providers Care Appliance Servicer Name Role Phone Provider, No Known Primary Care Provider Unavail able Encounter Details Date Type Department Care Team (Late st Contact Info) Description 06/15/2025 Results Follow-Up [facility] ENDOCRINOLOGY [address] [facility] [address] [place] [address] Haydee Fermin MD [address] [facility] [address] [place] [address] Social History Tobacco Use Types Packs/Day Years [...] on filedocumented in this encounter Care Teams Appliance Servicer Relationship Specialty Start Date End Date Provider, [place] [address] PCP - General 03/14/25 documented as of this encounter
== END 2025-11-16 23:59 | disposition home or self-care (01) ==
LOC: LAB.DROPOF 11-17 11:03
PROVIDERS: PCP Nurse Practitioner Family; Visit Provider Nurse Practitioner Family
DX: R06.02 Shortness of breath (principal); R05.9 Cough, unspecified; R34 Anuria and oliguria; N39.43 Post-void dribbling
CPT/HCPCS: 81001; 87086; 87631

== ENCOUNTER 2025-11-20 12:40 | Outpatient (CLI) | payer MEDICARE, SELFPAY ==
--- OUTSIDE RECORDS SUMMARY | 2025-11-21 12:51 | XMS_ITS | Clinical Summary ---
Author Organization Healthcare Address [address] [place] [address] Care Team Providers Care Bench Worker Binding Name Role Phone Wally Cherry MD Primary Care Provider + [phone] Darius Kinney MD Unavailable [phone] Allergies Active Allergy Reactions Criticality Noted Date [...] 75+ series) 2013 [facility]-Depression Screening 05/04/2024 05/04/2023 [id number]-95 Vaccine ( season) 2025 12/13/2021, 02/06/2021, 01/09/2021 [...] age to complete [place] [address] [place] [address] MEDICARE [facility] Care Teams Bench Worker Binding Relationship Specialty Start Date End Date Wally Cherry MD [address] [place] [address] PCP - General 04/13/23 Darius Kinney MD [address] [facility] [address] [place] [address] Referring Physician Cardiology 04/13/23
--- OUTSIDE RECORDS SUMMARY | 2025-11-21 12:51 | XMS_ITS ---
Laboratory report Created on: October 31, 2025 RADHA PAUL : 1940 Sex: Female Author Name TATIANA QUEEN Organization Unknown PROBLEMS Problems List Code Description E55.9 RESULTS Laboratory Orders Date Order Code Test 2025-06-13 [id number] CALCITRIOL(1,25 DI-OH VIT D) Laboratory Results Date LOINC Test Value Unit Reference Range Interpre tation 2025-06-13 [id number] CALCITRIOL(1,25 DI-OH VIT D) 55.6 PG/ML 24.8-81.5
--- OUTSIDE RECORDS SUMMARY | 2025-11-21 12:51 | XMS_ITS ---
Laboratory report Created on: October 31, 2025 RADHA PAUL : 1940 Sex: Female Author Organization Unknown PROBLEMS Problems List Code Description RESULTS Laboratory Orders Date Order Code Test 2024-10-03 [id number] THYROID PEROXIDA SE (TPO) AB Laboratory Results Date LOINC Test Value Unit Reference Range Interpre tation 2024-10-03 [id number] THYROID PEROXIDA SE (TPO) AB 16 IU/ML 0-34
--- OUTSIDE RECORDS SUMMARY | 2025-11-21 12:51 | XMS_ITS | Encounter Summary ---
Author Organization Healthcare Address [address] [place] [address] Care Team Providers Care Thermite Welder Name Role Phone Wally Cherry MD Primary Care Provider + [phone] Darius Kinney MD Unavailable [phone] Encounter Details Date Type Department Care Team (Late st Contact Info) Description 03/16/2023 Orders Only External Location [address] [place] [address] Provider, External Social History Tobacco Use Types [...] on filedocumented in this encounter Care Teams Thermite Welder Relationship Specialty Start Date End Date Wally Cherry MD [address] [place] [address] PCP - General 04/13/23 Darius Kinney MD [address] [place] [address] Referring Physician Cardiology 04/13/23 documented as of this encounter
--- OUTSIDE RECORDS SUMMARY | 2025-11-21 12:51 | XMS_ITS | Encounter Summary ---
Author Organization [facility] ystem Address [address] [place] [address] Care Team Providers Care Grease Refining Supervisor Name Role Phone Provider, No Known Primary Care Provider Unavail able Encounter Details Date Type Department Care Team (Late st Contact Info) Description 03/14/2025 Results Follow-Up [facility] ENDOCRINOLOGY [address] [facility] [address] [place] [address] Haydee Fermin MD [address] [facility] [address] [place] [address] Social History Tobacco Use Types Packs/Day Years [...] on filedocumented in this encounter Care Teams Grease Refining Supervisor Relationship Specialty Start Date End Date Provider, [place] [address] PCP - General 03/14/25 documented as of this encounter
--- OUTSIDE RECORDS SUMMARY | 2025-11-21 12:51 | XMS_ITS | Referral Summary ---
Author Organization [employer] ([place], [place], [place], [place], [place]) Address [address] [place] [address] Care Team Providers Care Emergency Detail Driver Name Role Phone Unavailable Primary Care Provider [...] Date Keron rded Speak language other than British Virgin Islander at home Not on file 12/18/2023 Want [...]
--- OUTSIDE RECORDS SUMMARY | 2025-11-21 12:51 | XMS_ITS | Clinical Summary ---
Author Organization [employer] ([place], [place], [place], [place], [place]) Address [address] [place] [address] Care Team Providers Care Senior Marketing Analyst Name Role Phone Unavailable Primary Care Provider [...] Date Keron rded Speak language other than Sammarinese at home Not on file 12/18/2023 Want [...]
--- OUTSIDE RECORDS SUMMARY | 2025-11-21 12:51 | XMS_ITS | Clinical Summary ---
Author Organization [facility] ystem Address [address] [place] [address] Care Team Providers Care Cement And Concrete Plant Worker Name Role Phone Provider, No Known Primary [...] history exists Medical Devices Implanted Type Area Tax Professional Device Identifier Shelf Expiration Date Model / Serial / Lot Right Inee Replacement Hardware Implant Description:Replaced 1998 Bilateral Intraoccular Lens Implant Implant Spinal Cord Stimulator Implant Description:approx 2014 Fem/Kn Triathlon Totlstbl Dist Sz4 5mm Rt - [id number] Implanted:Qty: 1 on 07/03/2021 by Shai Abreu MD at [facility] Implant Right: Knee [employer] MILAGROS [id number] 03/11/2026 [id number] / / [id number] Jun Cone Tib/Kn Triathlon Rev Symm Szb - [id number] Implanted:Qty: 1 on 07/03/2021 by Shai Abreu MD at [facility] Implant Right: Knee LORETTA MILAGROS [id number] 05/19/2026 [id number] / / [id number] Aug Tib Triath lck Rl/Lm Sz3 5mm - [id number] Implanted:Qty: 1 on 07/03/2021 by Shai Abreu MD at [facility] Implant Right: Knee LORETTA MILAGROS [id number] 02/24/2026 [id number] / / [id number] Jun Tib Triath lck Ll/Rm Sz3 5mm - [id number] Implanted:Qty: 1 on 07/03/2021 by Shai Abreu MD at [facility] Implant Right: Knee LORETTA MILAGROS [id number] 02/11/2026 [id number] / / [id number] Stem Fem Triath Cmt 86i23ef - [id number] Implanted:Qty: 1 on 07/03/2021 by Shai Abreu MD at [facility] Implant Right: Knee LORETTA MILAGROS [id number] 05/09/2026 [id number] / / [id number] Aug Fem/Kn Triathlon Totlstbl Dist Sz4 5mm Rt - [id number] Implanted:Qty: 1 on 07/03/2021 by Shai Abreu MD at [facility] Implant Right: Knee LORETTA MILAGROS [id number] 03/11/2026 [id number] / / [id number] Comp Fem Triath Ts Sz4 Rt - [id number] Implanted:Qty: 1 on 07/03/2021 by Shai Abreu MD at [facility] Implant Right: Knee LORETTA MILAGROS [id number] 05/21/2026 [id number] / / [id number] Baseplt Tib Triath Ts No3 - [id number] Implanted:Qty: 1 on 07/03/2021 by Shai Abreu MD at [facility] Implant Right: Knee LORETTA MILAGROS [id number] 02/18/2026 [id number] / / [id number] Restrictor [facility] - [id number] Implanted:Qty: 1 on 07/03/2021 by Shai Abreu MD at [facility] Implant Right: Knee LORETTA MILAGROS [id number] 03/20/2026 [id number] / [id number] / [id number] Restrictor [facility] 30mm - [id number] - [id number] Implanted:Qty: 1 on 07/03/2021 by Shai Abreu MD at [facility] Implant Right: Knee LORETTA MILAGROS [id number] 01/17/2026 [id number] / [id number] / [id number] Insrt Tib Triath X3 Totl Stbl Sz3 19 - [id number] Implanted:Qty: 1 on 07/03/2021 by Shai Abreu MD at [facility] Implant Right: Knee LORETTA MILAGROS 11/03/2022 [id number] / / [id number] Sut Contrl Tiss Stratafix Spiral Pdo Bidir 1 88o46of - [id number] Implanted:Qty: 1 on 07/03/2021 by Shai Abreu MD at [facility] Implant Right: Knee [employer] DIV OF J AND J 03/29/2026 [id number] / / [id number] [facility] Bone Simplex/P Tmycin Fdos 10pk - [id number] Implanted:Qty: 4 on 07/03/2021 by Shai Abreu MD at [facility] Implant Right: Knee LORETTA MILAGROS 08/29/2022 [id number] / / [id number] Cone Aug Fem/Kn Triathlon Ts Ctr Zm2nlo2 Rt - [id number] Implanted:Qty: 1 on 07/03/2021 by Shai Abreu MD at [facility] Implant Right: Knee LORETTA MILAGROS [id number] 10/11/2025 [id number] / / [id number] Ext Stem Triath Kn Totl Cocr Flut 79o04ud - [id number] Implanted:Qty: 1 on 07/03/2021 by Shai Abreu MD at [facility] Implant Right: Knee LORETTA MILAGROS [id number] 06/04/2026 [id number] / / [id number] Aug Fem/Kn Triathlon Rev Post Sz4 5mm - [id number] Implanted:Qty: 1 on 07/03/2021 by Shai Abreu MD at [facility] Implant Right: Knee LORETTA MILAGROS [id number] 01/14/2026 [id number] / / [id number] Stem Fem Triath Cmt 39r14ko - [id number] Implanted:Qty: 1 on 07/03/2021 by Shai Abreu MD at [facility] Implant Right: Knee LORETTA MILAGROS [id number] 03/10/2026 [id number] / / [id number] Insurance MEDICARE A & B Member Subscriber Plan / Payer (Ef fective 2003-Present) Name:Cristel Blackwood Member ID:[id number] Relation to Subscriber:Self Name:Cristel Blackwood Subscriber ID:[id number] Payer ID:[id number] Group ID:Not on file Type:Not on file Address: [address] HEALTH CARE OPTIONS Advance Directives Documents on File Type Date Recorded Patient Food Service Driver Expl anation LIVING WILL - SCAN 07/05/2021 1:09 PM ANUPAMA Bernardo WILL[place] [facility] [place] * CPR (Attempt to Resuscitate) (Latest [...] Boyd Daughter Health Care Surrogate Care Teams Cement And Concrete Plant Worker Relationship Specialty Start Date End Date Provider, [place] [address] PCP - General 03/14/25
--- OUTSIDE RECORDS SUMMARY | 2025-11-21 12:51 | XMS_ITS | Encounter Summary ---
Author Organization [facility] ystem Address [address] [place] [address] Care Team Providers Care International Tax Manager Name Role Phone Provider, No Known Primary Care Provider Unavail able Encounter Details Date Type Department Care Team (Late st Contact Info) Description 06/15/2025 Results Follow-Up [facility] ENDOCRINOLOGY [address] [facility] [address] [place] [address] Haydee Fermin MD [address] [facility] [address] [place] [address] Social History Tobacco Use Types Packs/Day Years [...] on filedocumented in this encounter Care Teams International Tax Manager Relationship Specialty Start Date End Date Provider, [place] [address] PCP - General 03/14/25 documented as of this encounter
== END 2025-11-20 23:59 | disposition home or self-care (01) ==
LOC: LAB.DROPOF 11-21 12:49
PROVIDERS: PCP Nurse Practitioner Family; Visit Provider Nurse Practitioner Family
DX: N39.0 Urinary tract infection, site not specified (principal)
CPT/HCPCS: 87086